=== PATIENT | female | born 1965 | race Caucasian/White ===

== ENCOUNTER 2016-07-05 08:03 | Day surgery (SDC) ==
[2016-04-24 13:53] VITALS: BMI 38.5
[2016-07-05] MEDS ORDERED: ALBUTEROL 0.083% NEB NEB STA (08:35)
[2016-07-05] MEDS ORDERED: LIDOCAINE 1% 20 ML MDV ID ONE (08:48)
[2016-07-05] MEDS ORDERED: VERSED ONE (10:50)
[2016-07-05] MEDS ORDERED: DIPRIVAN 20 ML VIAL IVP ONE (10:50)
[2016-07-05] MEDS ORDERED: SUBLIMAZE ONE (10:50)
[2016-07-05 11:31] VITALS: BP 118/77; TEMP 98.4
--- NOTE | 2016-07-05 14:54 | OP ---
INDICATIONS FOR PROCEDURE: 50-year-old female presents for endoscopy and colonoscopy. She is having breakthrough heartburn. She also has diarrhea. She has always had some diarrhea but it has gotten worse since they have increased her oral diabetic medications. MEDICATIONS: SEE ANESTHESIA NOTES. PROCEDURE: 1. ENDOSCOPY, SMALL BOWEL BIOPSY 2. COLONOSCOPY, RANDOM BIOPSIES, SNARE POLYPECTOMY REPORT: The risks, benefits, alternatives and limitations were discussed in detail with the patient. Informed consent was obtained. After adequate sedation was achieved, the video endoscope was introduced in the posterior pharynx and esophagus under direct vision and easily advanced down to the second portion of the duodenum. I then slowly withdrew. The duodenal mucosa appeared unremarkable as did the duodenal bulb. I obtained random biopsies from the second portion of the duodenum for histological review. The antrum and body were relatively unremarkable. The scope was retroflexed to look at the cardia and fundus which was unremarkable. The scope was anteflexed and withdrawn back through the esophagus which was unremarkable. The patient tolerated this procedure well with stable vital signs and pulse oximetry throughout. The patient's bed was turned. A digital rectal exam revealed good tone, no masses. The colonoscope was introduced into the rectum and advanced under direct visual guidance to the cecum. The cecum was identified by the appendiceal orifice and IC valve. I intubated the terminal ileum and examined distally 8 cm. This appeared normal. I then withdrew the scope back in the cecum. In the cecum there were two polyps about 5 mm and 6 mm in size, both sessile, both removed by snare technique. They were not retrieved. Withdrawing the scope in a circumferential manner and looking at the proximal and distal side of folds and flexures, carefully revealed two polyps in the distal ascending colon. These were about 6 and 7 mm in size and slightly raised. I removed both by snare technique. They were placed in the same pathology jar. In the proximal transverse colon, there was a 5 mm to 6 mm slightly raised polyp that I placed in a separate pathology jar and then in the rectum there was a diminutive polyp in the very distal rectum that I removed by snare technique. No other abnormalities noted on forward and retroflex views. The prep was good. I did obtain some random biopsies throughout the left colon for histological review. The withdrawal time is 17 minutes and 20 seconds. The patient tolerated the procedure well with stable vital signs and pulse oximetry throughout. IMPRESSION: 1. NORMAL UPPER ENDOSCOPY EXAM 2. SIX (6) COLONIC POLYPS REMOVED 3. NOTHING FOUND TO ACCOUNT FOR DIARRHEA 4. SHE MOST LIKELY HAS A HISTORY OF CHRONIC IRRITABLE BOWEL BUT NOW IT HAS GOTTEN WORSE WITH SULFONYLUREA DIABETIC MEDICATION USE RECOMMENDATIONS: 1. I suggest Citrucel supplementation 5 to 10 gm daily. 2. [id number] Imodium AD as directed, as needed for diarrhea. 3. If her diarrhea continues despite this then she will need to followup with her primary care and consider other treatment for diabetes other than the Sulfonylureas, which are a common cause of diarrhea. 4. Will await pathology results. 5. Repeat colonoscopy examination again in 3 years, sooner if signs or symptoms or pathology would suggest otherwise. 6. Office visit with us as needed. CC: MARKELL MOSQUEDA/[facility], [place], [place] KATHERINE
== END 2016-07-05 12:20 | disposition home or self-care (01) ==
LOC: SURG 08:03
PROVIDERS: ATTEND Internal Medicine Gastroenterology
DX: R19.7 Diarrhea, unspecified (principal); K21.9 Gastro-esophageal reflux disease without esophagitis; D12.2 Benign neoplasm of ascending colon; D12.3 Benign neoplasm of transverse colon; D12.7 Benign neoplasm of rectosigmoid junction; D13.2 Benign neoplasm of duodenum; E11.9 Type 2 diabetes mellitus without complications
CPT/HCPCS: 82962; 94640

== ENCOUNTER 2016-08-12 08:21 | Outpatient (CLI) ==
[2016-04-24 13:53] VITALS: BMI 38.5
--- NOTE | 2016-08-12 09:33 | US ---
EXAM: Abdominal ultrasound limited HISTORY: Cirrhosis with abdominal pain and history of cholecystectomy COMPARISON: Abdominal ultrasound 03/05/2016, 12/16/[address] abdomen 11/15/2014 TECHNIQUE: Sonographic and limited Doppler evaluation of the right upper quadrant was performed. FINDINGS: The liver is coarse and mild increased in echogenicity and measures enlarged at 20.1 cm. The portal vein is patent. The gallbladder has been removed. Common bile duct is unremarkable and measures mildly enlarged at 0.7 cm in diameter. No internal debris or stone is identified. The schaefer creas is unremarkable in appearance. The adjacent right kidney measures 13.4 x 5.1 x 5.2 cm with cor tical thickness of 1.3. There is no stone, cyst or hydronephrosis. IMPRESSION: 1. Heterogeneous increased echogenic texture of the liver may represent cirrhosis versus fatty live r. There is no focal hepatic lesion identified. 2. Hepatomegaly is present. 3. Prior cholecystectomy with stable mildly enlarged common duct.
== END 2016-08-12 08:22 | disposition home or self-care (01) ==
LOC: RAD 08:21
PROVIDERS: ATTEND Physician Assistant Medical
DX: K74.60 Unspecified cirrhosis of liver (principal)

== ENCOUNTER 2016-08-30 20:54 | Emergency (ER) ==
[2016-08-30 21:05] VITALS: BP 119/82; TEMP 99.2; BMI 37.5
[2016-08-30] MEDS ORDERED: SODIUM CHLORIDE 1,000 ML IV STA (21:09)
[2016-08-30] MEDS ORDERED: ROCEPHIN 1 GM in SODIUM CHLORIDE 100 ML IV STA (21:10)
[2016-08-30] MEDS ORDERED: DILAUDID 1 MG/ML SYRINGE IVP STA ×2 (21:10→23:19)
[2016-08-30] MEDS ORDERED: ZOFRAN 4 MG/2 ML IVP STA ×2 (21:10→23:23)
[2016-08-30] MEDS ORDERED: DECADRON 4 MG/ML SDV IVP STA (21:10)
--- NOTE | 2016-08-30 21:44 | CT ---
EXAM: CT head without contrast. HISTORY: Headache. PROCEDURE: Contiguous axial CT images of the head without contrast with coronal and sagittal reform ats. FINDINGS: The ventricles and basal cisterns are normal in size and configuration. No evidence of ma ss or midline shift. No intracranial hemorrhage or evidence of large vessel infarct. No extra-axia l fluid collection. The paranasal sinuses and mastoid air cells are well-aerated. Impression: Negative CT of the head.
--- NOTE | 2016-08-30 21:47 | CT ---
EXAM: CT of the chest without contrast. HISTORY: Hemoptysis. Patient had a colonoscopy and endoscopy on 07/05/2016. COMPARISON: 03/31/2016. TECHNIQUE: Contiguous axial images at 5 mm intervals obtained from the lung apices to the upper abd omen. The study was performed without IV contrast. Sagittal and coronal reformats were reviewed. FINDINGS: The lung windows show no lobar consolidation or effusion. There are no suspicious pulmon judith nodules. The airways are widely patent. The pulmonary fissure appears normal. There is no ple ural thickening. The soft tissue windows demonstrate a normal size heart. There is no significant mediastinal or hilar adenopathy identified. There is no axillary adenopathy. Limited views of the upper abdomen are available. The liver appears enlarged. The gallbladder is absent. The pancreas is unremarkable. IMPRESSION: 1. No acute pulmonary disease. 2. Hepatomegaly.
--- NOTE | 2016-08-30 21:49 | CT ---
EXAM: CT of the sinuses without contrast. HISTORY: Coughing up blood. Headache and nausea. PROCEDURE: Contiguous axial CT images of the paranasal sinuses without contrast with coronal and sa gittal reformats. FINDINGS: The frontal sinuses, ethmoid air cells and sphenoid sinus are well-aerated and normal in appearance. There is trace mucosal thickening in the maxillary sinuses. There is a right antrectom y. The left ostiomeatal complex is normal in appearance. The nasal turbinates are normal in appear ance. There is mild bowing of the nasal septum to the left with a left septal spur. Impression: Minimal bilateral maxillary sinusitis. Right antrectomy.
[2016-08-30] MEDS ORDERED: ROCEPHIN ONE (21:52)
[2016-08-30 21:53] LABS: BASOPHILS # (AUTO) 0.1 K/uL (0-0.2); BASOPHILS % (AUTO) 0.4 % (0.0-3.0); EOSINOPHILS # (AUTO) 0.2 K/ul (0.0-0.7); EOSINOPHILS % (AUTO) 1.5 % (0.0-7.0); HEMATOCRIT 39.5 % (37.0-47.0); HEMOGLOBIN 13.9 g/dl (12.0-16.0); IMMATURE GRANULOCYTE % (AUTO) 0.2 % (0.0-5.0); LYMPHOCYTES # (AUTO) 4.8 K/uL (0.60-3.4); LYMPHOCYTES % (AUTO) 42.6 (10.0-50.0); MEAN CORPUSCULAR HEMOGLOBIN 30.5 pg (27.0-31.0); MEAN CORPUSCULAR HGB CONC 35.2 (31.8-35.4); MEAN CORPUSCULAR VOLUME 86.6 fl (81.0-99.0); MONOCYTES # (AUTO) 0.7 K/uL (0.4-2.0); MONOCYTES % (AUTO) 5.9 (0-10); NEUTROPHILS # (AUTO) 5.6 K/ul (2.0-6.9); NEUTROPHILS % (AUTO) 49.4; PLATELET COUNT 202 10^3/uL (140-440); RED BLOOD COUNT 4.56 10^6/ul (4.20-5.40); WHITE BLOOD COUNT 11.27 K/ul (4.6-10.2)
[2016-08-30 22:12] LABS: ALBUMIN 3.3 g/dL (3.4-5.0); ALBUMIN/GLOBULIN RATIO 0.67; ANION GAP 18.3; BILIRUBIN,TOTAL 0.51 mg/dL (0.00-1.20); BUN/CREATININE RATIO 18.94; CALCIUM 9.8 mg/dL (8.2-10.2); CREATININE 0.95 mg/dL (0.60-1.30); POTASSIUM 3.3 mmol/L (3.5-5.10); TOTAL PROTEIN 8.2 g/dL (6.4-8.2)
[2016-08-30 22:16] LABS: FLU INTERNAL QC INTERNAL QC VALID; RAPID FLU A NEGATIVE (NEGATIVE); RAPID FLU B NEGATIVE (NEGATIVE)
[2016-08-30 22:21] LABS: ABG PCO2 34.6 mmHg (35-45); ABG PH 7.503 (7.35-7.45)
[2016-08-30 22:22] LABS: ABG BASE EXCESS 4 (-2.0-2.0); ABG HCO3 27.2 (22.0-26.0); ABG TCO2 28 (22.0-28.0)
--- NOTE | 2016-08-31 01:04 | ED.PDOC ---
General ED Provider: Dr. ROSARIO LOUIS-ER Chief Complaint: Cough Stated Complaint: i have a yeyo Time Seen by Physician: 20:55 Mode of Arrival: Walk-In Information Source: Patient Exam Limitations: No limitations Primary Care Provider: AMAURI MOSQUEDA Nursing and Triage Documentation Reviewed and Agree: Yes Neurological Complaint Exam - Headache Complaint/Exam Onset: Gradual Duration: several hours Symptoms Are: Still present Timing: Intermittent Worst Headache Ever: No Initial Severity: Mild Current Severity: Moderate Location: Diffuse Character: Reports: Dull, Throbbing Aggravating: Reports: Bright lights Alleviating: Reports: None Associated Signs and Symptoms: Reports: Nausea. Denies: Dizziness, Seizure, Vomiting, Sinus pressure, Fever, Neck pain, Neck stiffness, Decreased LOC, Visual changes Related Surgical History: Reports: None SAH Risk Factors: Reports: None Meningitis Risk Factors: Reports: None SDH Risk Factors: Reports: None Temporal Arteritis Risk Factors: Reports: Female, Normal Head CT Within Last 12 Months: No Fundoscopic Exam: Present: Normal Findings Papilledema Present: No Temporal Artery Tenderness: Present: None TMJ Tenderness: Present: None Glascow Coma Scale (see protocol): 15 Meningeal Signs Positive: No Pain on Passive Flexion-Positive Kernig's: No ROM Limited In: No Limitiations Focal Weakness: Present: None Focal Sensory Loss: Present: None Gait: Normal Nystagmus Present: No Gag Reflex Present: Yes [id number]: Normal Findings Romberg Test Positive: No Babinski Sign: Negative Right, Negative Left Heel to Toe Normal: Yes Differential Diagnoses: Migraine Review of Systems - Review Of Systems Constitutional: Reports: No symptoms Eyes: Reports: No symptoms Ears, Nose, Mouth, Throat: Reports: No symptoms Respiratory: Reports: No symptoms Cardiac: Reports: No symptoms GI: Reports: Nausea : Reports: No symptoms Musculoskeletal: Reports: No symptoms Skin: Reports: No symptoms Neurological: Reports: No symptoms Endocrine: Reports: No symptoms Hematologic/Lymphatic: Reports: No symptoms All Other Systems: Reviewed and Negative Past Medical History - Past Medical History Previously Healthy: No Endocrine: Reports: Hypothyroid Cardiovascular: Reports: None Respiratory: Reports: COPD Hematological: Reports: Anemia Gastrointestinal: Reports: GERD Genitourinary: Reports: None Neuro/Psych: Reports: Depression Musculoskeletal: Reports: Back Pain Cancer: Reports: None Last Menstrual Period: 1 year ago - Surgical History General Surgical History: Reports: Tubal ligation, Orthopedic - Family History Family History: Reports: None - Social History Smoking Status: Former smoker Hx Substance Use: No Alcohol Screening: None - Immunizations Tetanus Shot up to Date: Yes Physical Exam - Physical Exam Appearance: Well-appearing, No pain distress, Well-nourished Pain Distress: Moderate Eyes: SCOUT ENT: Ears normal, Nose normal, Oropharynx normal Neck: Supple Respiratory: Airway patent, Breath sounds clear, Breath sounds equal, Respirations nonlabored Cardiovascular: RRR, Pulses normal, No rub, No murmur GI/: Soft, Nontender, No masses, Bowel sounds normal, No Organomegaly Musculoskeletal: Normal strength Skin: Warm, Dry, Normal color Neurological: Sensation intact Psychiatric: Affect appropriate, Mood appropriate Interpretation - Radiology Interpretation Radiology Interpretation By: Radiologist Radiology Results: Negative Exam Interpreted: CT Scan Re-Evaluation - Re-Evaluation Time of Re-Evaluation: 01:04 Status: Improved Vital Signs Stable: Yes Pain Level: 1 Lungs: Clear Skin: Warm and Dry Neuro: Alert and Oriented X3 CV: RRR Critical Care Note - Critical Care Note Total Time (mins): 0 Course - Course Hematology/Chemistry: 08/30/16 21:52 08/30/16 21:52 Orders, Labs, Meds: Lab Review 08/30/16 08/30/16 21:09 21:52 WBC 11.27 H RBC 4.56 Hgb 13.9 Hct 39.5 MCV 86.6 MCH 30.5 MCHC 35.2 RDW Coeff of Juliana 13.2 Plt Count 202 Immature Gran % (Auto) 0.2 Neut % (Auto) 49.4 Lymph % (Auto) 42.6 [place] % (Auto) 5.9 Eos % (Auto) 1.5 Baso % (Auto) 0.4 Immature Gran # (Auto) 0.0 Neut # 5.6 Lymph # 4.8 H [place] # 0.7 Eos # 0.2 Baso # 0.1 D-Dimer 0.32 Puncture Site Lb O2 Saturation 98.0 ABG pH 7.503 H* ABG pCO2 34.6 L ABG pO2 101.0 H ABG HCO3 27.2 H ABG Total CO2 28 ABG Base Excess 4 H Tani Test + FiO2 % 21.0 Sodium 137 Potassium 3.3 L Chloride 98 Carbon Dioxide 24 Anion Gap 18.3 BUN 18 Creatinine 0.95 Estimated GFR (MDRD) 63.00 BUN/Creatinine Ratio 18.94 Glucose 375 H Calcium 9.8 Total Bilirubin 0.51 AST 86 H ALT 43 Alkaline Phosphatase 184 H Total Protein 8.2 Albumin 3.3 L Globulin 4.9 Albumin/Globulin Ratio 0.67 Influenza A (Rapid) Negative Influenza B (Rapid) Negative Orders Category Date Time Status ABG DRAW REQUEST Stat CARDIO 08/30/16 21:09 Completed EKG-(ED ONLY) Stat CARDIO 08/30/16 21:09 Completed IV [ED IV/MEDIPORT/POWERPORT] .ONCE EMERGENCY 08/30/16 21:09 Active Ice Pack [ED APPLY ICE AFFECTED AREA] .ONCE EMERGENCY 08/31/16 00:19 Active OXYGEN [ED APPLY O2] .ONCE EMERGENCY 08/30/16 22:13 Active ABG Stat LAB 08/30/16 21:09 Completed CBC W/ AUTO DIFF Stat LAB 08/30/16 21:52 Completed COMPREHENSIVE METABOLIC PANEL Stat LAB 08/30/16 21:52 Completed D-DIMER Stat LAB 08/30/16 21:52 Completed MOLECULAR GROUP A STREP Stat LAB 08/30/16 21:52 Results RAPID FLU A/B Stat LAB 08/30/16 21:52 Completed STREP SCREEN Stat LAB 08/30/16 21:52 Results 0.9 % Sodium Chloride [Saline Flush] MEDS 08/30/16 21:09 Ordered 1 syr IVF PRN PRN Ceftriaxone Sodium [Rocephin] MEDS 08/30/16 21:52 Discontinued 1 gm .ROUTE .STK-MED ONE Ceftriaxone Sodium [Rocephin] 1 gm MEDS 08/30/16 21:10 Discontinued 0.9 % Sodium Chloride [Sodium Chloride] 100 ml IV ONCE Dexamethasone 4 mg/ml Inj [Decadron 4 mg/ml Sdv] MEDS 08/30/16 21:10 Discontinued 4 mg IVP ONCE STA Hydromorphone HCl [Dilaudid 1 mg/ml Syringe] MEDS 08/30/16 21:10 Discontinued 1 mg IVP ONCE STA Hydromorphone HCl [Dilaudid 1 mg/ml Syringe] MEDS 08/30/16 23:19 Discontinued 1 mg IVP ONCE STA Ondansetron HCl/Pf [Zofran 4 mg/2 ml] MEDS 08/30/16 21:10 Discontinued 4 mg IVP ONCE STA Ondansetron HCl/Pf [Zofran 4 mg/2 ml] MEDS 08/30/16 23:23 Discontinued 4 mg IVP ONCE STA Sodium Chloride 0.9% [Sodium Chloride] 1,000 ml MEDS 08/30/16 21:09 Active IV 100 mls/hr CT CHEST W/O CONTRAST Stat RADS 08/30/16 21:[address] HEAD W/O CONTRAST Stat RADS 08/30/16 21:[address] SINUSES W/O CONTRAST Stat RADS 08/30/16 21:10 Completed Medications Generic Name Dose Route Start Last Admin Trade Name Freq PRN Reason Stop Dose Admin Sodium Chloride 1,000 mls @ 100 mls/hr 08/30/16 21:09 08/30/16 22:07 Sodium Chloride IV 08/31/16 07:08 100 mls/hr .Q10H STA Administration Sodium Chloride 1 syr 08/30/16 21:09 08/30/16 22:08 Saline Flush IVF 1 syr PRN PRN Administration To flush IV Discontinued Medications Generic Name Dose Route Start Last Admin Trade Name Freq PRN Reason Stop Dose Admin Dexamethasone Sodium Phosphate 4 mg 08/30/16 21:10 08/30/16 22:08 Decadron 4 Mg/Ml Sdv IVP 08/30/16 21:11 4 mg ONCE STA Administration Hydromorphone HCl 1 mg 08/30/16 21:10 08/30/16 22:09 Dilaudid 1 Mg/Ml Syringe IVP 08/30/16 21:11 1 mg ONCE STA Administration Hydromorphone HCl 1 mg 08/30/16 23:19 08/30/16 23:49 Dilaudid 1 Mg/Ml Syringe IVP 08/30/16 23:20 1 mg ONCE STA Administration Ceftriaxone Sodium 1 gm/ 100 mls @ 100 mls/hr 08/30/16 21:10 08/30/16 22:07 Sodium Chloride IV 08/30/16 22:09 100 mls/hr ONCE STA Administration Ondansetron HCl 4 mg 08/30/16 21:10 08/30/16 22:11 Zofran 4 Mg/2 Ml IVP 08/30/16 21:11 4 mg ONCE STA Administration Ondansetron HCl 4 mg 08/30/16 23:23 08/30/16 23:49 Zofran 4 Mg/2 Ml IVP 08/30/16 23:24 4 mg ONCE STA Administration Vital Signs: Temp Pulse Resp BP Pulse Ox 08/30/16 20:56 99.2 F 138 H 20 119/82 96 Departure - Departure Time of Disposition: 01:04 Disposition: HOME SELF-CARE Discharge Problem: Migraine headache Qualifiers: Migraine type: unspecified Status migrainosus presence: without status migrainosus Intractability: not intractable Qualifier Code: (G43.909) Migraine, unspecified, not intractable, without status migrainosus Instructions: Migraine Headache (ED) Condition: Good Pt referred to PMD for follow-up: Yes Additional Instructions: f/u with pcp Allergies/Adverse Reactions: Allergies hydrocodone bitartrate [From Lortab] Adverse Reaction (Verified 08/30/16 21:04) sumatriptan [From Imitrex] Adverse Reaction (Verified 08/30/16 21:04) sumatriptan succinate [From Imitrex] Adverse Reaction (Verified 08/30/16 21:04) CANT BREATHE, CHILLS nylon Adverse Reaction (Uncoded 08/30/16 21:04) Home Medications: Ambulatory Orders Oxycodone-Acetaminophen 10-325 [Percocet 10-325] 1 tab PO Q8H PRN 05/27/13 Ferrous Sulfate, Dried [Iron] 65 mg PO BID 11/12/14 Albuterol Sulfate [Ventolin Hfa] 2 puff IH BID PRN 08/04/15 Budesonide/Formoterol Fumarate [Symbicort 80-4.5 Mcg Inhaler] 2 puff IH BID 08/18 Tizanidine HCl [Zanaflex] 4 mg PO TID PRN 09/21/15 Atorvastatin Calcium 20 mg PO DAILY 07/05/16 Glipizide [Glipizide ER] 10 mg PO DAILY 07/05/16 Disposition Discussed With: Patient, Family
== END 2016-08-31 00:15 | disposition home or self-care (01) ==
LOC: ED 20:54
DX: G43.909 Migraine, unspecified, not intractable, without status migrainosus (principal); Z79.899 Other long term (current) drug therapy
CPT/HCPCS: 36415; 80053; 82803; 85025; 85379; 87651; 87804; 87880; 93005; 93010; 96361; 96365; 96375; 96376; 99283

== ENCOUNTER 2017-02-10 19:49 | Emergency (ER) ==
[2017-02-10] MEDS ORDERED: DILAUDID 1 MG/ML SYRINGE IVP STA ×2 (19:51→21:07)
[2017-02-10] MEDS ORDERED: ZOFRAN 4 MG/2 ML IVP STA (19:51)
[2017-02-10] MEDS ORDERED: SODIUM CHLORIDE 1,000 ML IV STA (19:51)
[2017-02-10 19:54] VITALS: BP 153/102; TEMP 98; BMI 36.0
[2017-02-10 20:04] LABS: BASOPHILS # (AUTO) 0.1 K/uL (0-0.2); BASOPHILS % (AUTO) 0.4 % (0.0-3.0); EOSINOPHILS # (AUTO) 0.2 K/ul (0.0-0.7); EOSINOPHILS % (AUTO) 1.2 % (0.0-7.0); HEMATOCRIT 39.6 % (37.0-47.0); HEMOGLOBIN 13.7 g/dl (12.0-16.0); IMMATURE GRANULOCYTE % (AUTO) 0.3 % (0.0-5.0); LYMPHOCYTES # (AUTO) 5.2 K/uL (0.60-3.4); LYMPHOCYTES % (AUTO) 35.6 (10.0-50.0); MEAN CORPUSCULAR HEMOGLOBIN 31.1 pg (27.0-31.0); MEAN CORPUSCULAR HGB CONC 34.6 (31.8-35.4); MONOCYTES # (AUTO) 0.8 K/uL (0.4-2.0); MONOCYTES % (AUTO) 5.2 (0-10); NEUTROPHILS # (AUTO) 8.3 K/ul (2.0-6.9); NEUTROPHILS % (AUTO) 57.3; PLATELET COUNT 301 10^3/uL (140-440); WHITE BLOOD COUNT 14.52 K/ul (4.6-10.2)
[2017-02-10 20:30] LABS: ALBUMIN 3.7 g/dL (3.4-5.0); ALBUMIN/GLOBULIN RATIO 0.77; ANION GAP 14.9; BILIRUBIN,TOTAL 0.33 mg/dL (0.00-1.20); BUN/CREATININE RATIO 11.53; CALCIUM 9.7 mg/dL (8.2-10.2); CREATININE 0.78 mg/dL (0.60-1.30); POTASSIUM 3.9 mmol/L (3.5-5.10); TOTAL PROTEIN 8.5 g/dL (6.4-8.2); TROPONIN I 0.011 ng/ml (0.0000-0.4000)
[2017-02-10 20:38] LABS: ERYTHROCYTE SEDIMENTATION RATE 87 mm/hr (0-20); ESR INTERNAL QC INTERNAL QC VALID
[2017-02-10 21:13] LABS: ADD URINE MICROSCOPIC YES; BILIRUBIN,URINE Negative (NEGATIVE); KETONES,URINE Negative (NEGATIVE); LEUKOCYTE ESTERASE ,URINE 2+ (NEGATIVE); NITRITE,URINE Negative (NEGATIVE); PH,URINE 5.5 (5-9); PROTEIN,URINE Negative (NEGATIVE); URINE, BLOOD 2+ (NEGATIVE)
[2017-02-10 21:33] LABS: BACTERIA,URINE 1+ (NOT PRESENT)
--- NOTE | 2017-02-10 21:43 | CT ---
Exam: CT of the abdomen pelvis with intravenous contrast. Comparison: 11/15/2014. Ultrasound right upper quadrant performed 08/12/2016. Reason for exam: Abdominal pain status post hysterectomy. FINDINGS: No pleural effusion, or focal consolidation is seen in the partially imaged lung bases. The liver, spleen, pancreas, and adrenal glands appear grossly unremarkable. The gallbladder is bee n removed. No hydronephrosis, after ureter, or nephrolithiasis is seen in either kidney. No intra-abdominal free air or pelvic free fluid. The uterus is been removed. The appendix is unremarkable. No focal small bowel dilatation or transition point. No suspicious appearing osteoblastic or osteoly tic lesions. Degenerative disease is seen in the lumbosacral spine with intervertebral body disc space height los s at L5-S1. There is a tiny only fat containing periumbilical hernia. The bladder appears grossly unremarkable. Operative changes are seen after partial hysterectomy with a small amount of air seen in residual ut erus. There are inflammatory changes seen adjacent to the operative site. Impression: 1. Inflammatory changes are seen in the region of the partial hysterectomy with air seen within the residual uterus. 2. No other acute inflammatory findings are seen within the abdomen or pelvis. Imaging findings were discussed directly with the emergency room physician at 2138 hours on 02/11/20 17. The report was faxed at the same time.
--- NOTE | 2017-02-10 23:00 | ED.PDOC ---
General ED Provider: Dr. ROSARIO LOUIS-ER Chief Complaint: Nausea/Vomiting Stated Complaint: s/p partial hyst 2 weeks ago--now with fever, chills vomiting 7-8 times today--wtih abd pain Time Seen by Physician: 19:50 Mode of Arrival: Walk-In Information Source: Patient Exam Limitations: No limitations Primary Care Provider: AMAURI MOSQUEDA Nursing and Triage Documentation Reviewed and Agree: Yes GI Complaint Exam - Abdominal Pain Complaint/Exam Onset: Gradual Duration: 24 hrs Symptoms Are: Still present Initial Severity: Mild Current Severity: Moderate Location of Pain: Diffuse Character: Reports: Dull, Aching Aggravating: Reports: None Alleviating: Reports: None Associated Signs and Symptoms: Reports: Fever, Decreased appetite, Nausea, Vomiting. Denies: Diaphoresis, Cough, Chest pain, Dizziness, Back pain, Constipation, Blood in stool, Dysuria, Urinary frequency, Decreased urine output , Vaginal bleeding, Vaginal discharge, Diarrhea, Sore throat, Decreased activity Ovarian Torsion Risk Factors: Reports: Reproductive age Surgical Obstruction Risk Factors: Reports: Colicky abdominal pain, Prior abdominal surgery Patient Rh Status: Unknown Abdominal Findings: Present: None Differential Diagnoses: Bowel Obstruction, Constipation, Pancreatitis Quality Indicator For Non-Traumatic Chest Pain/Syncope: EKG Performed Review of Systems - Review Of Systems Constitutional: Reports: Chills, Fever, Weakness, Loss of appetite Eyes: Reports: No symptoms Ears, Nose, Mouth, Throat: Reports: No symptoms Respiratory: Reports: No symptoms Cardiac: Reports: No symptoms GI: Reports: Abdominal pain, Nausea, Vomiting : Reports: No symptoms Musculoskeletal: Reports: No symptoms Skin: Reports: No symptoms Neurological: Reports: No symptoms Endocrine: Reports: No symptoms Hematologic/Lymphatic: Reports: No symptoms All Other Systems: Reviewed and Negative Past Medical History - Past Medical History Previously Healthy: No Endocrine: Reports: Hypothyroid Cardiovascular: Reports: None Respiratory: Reports: COPD Hematological: Reports: Anemia Gastrointestinal: Reports: GERD Genitourinary: Reports: None Neuro/Psych: Reports: Depression Musculoskeletal: Reports: Back Pain Cancer: Reports: None Last Menstrual Period: 2 YEARS AGO - Surgical History General Surgical History: Reports: Tubal ligation, Orthopedic - Family History Family History: Reports: None - Social History Smoking Status: Former smoker Hx Substance Use: No Alcohol Screening: None Lives: With family - Immunizations Tetanus Shot up to Date: Yes Physical Exam - Physical Exam Appearance: Well-appearing, No pain distress, Well-nourished Pain Distress: Mild Eyes: SCOUT, EOMI, Conjunctiva clear ENT: Ears normal Neck: Supple Respiratory: Airway patent, Breath sounds clear, Breath sounds equal, Respirations nonlabored Cardiovascular: RRR, Pulses normal, No rub, No murmur GI/: No masses, Bowel sounds normal, Tender Musculoskeletal: Normal strength Skin: Warm Neurological: Sensation intact, Motor intact, Reflexes intact, Cranial nerves intact, Alert, Oriented Psychiatric: Affect appropriate, Mood appropriate Interpretation - Radiology Interpretation Radiology Interpretation By: Radiologist Radiology Results: Positive Exam Interpreted: CT Scan - EKG Interpretation Time of EKG #1: 23:00 Rate: Normal Rhythm: Sinus Ectopy: None [place]: [place] ST Segment: Normal Re-Evaluation - Re-Evaluation Time of Re-Evaluation: 23:00 Status: Unchanged Vital Signs Stable: Yes Pain Level: 3 Appearance: NAD Lungs: Clear Skin: Warm and Dry Neuro: Alert and Oriented X3 CV: RRR Physician Notification - Case Discussed Physician Notified: dr [email or web address] Time of Notification: 23:01 Critical Care Note - Critical Care Note Total Time (mins): 0 Course - Course Hematology/Chemistry: 02/10/17 20:00 02/10/17 20:00 Orders, Labs, Meds: Lab Review 02/10/17 02/10/17 20:00 21:00 WBC 14.52 H RBC 4.40 Hgb 13.7 Hct 39.6 MCV 90.0 MCH 31.1 H MCHC 34.6 RDW Coeff of Juliana 13.2 Plt Count 301 Immature Gran % (Auto) 0.3 Neut % (Auto) 57.3 Lymph % (Auto) 35.6 [place] % (Auto) 5.2 Eos % (Auto) 1.2 Baso % (Auto) 0.4 Immature Gran # (Auto) 0.0 Neut # 8.3 H Lymph # 5.2 H [place] # 0.8 Eos # 0.2 Baso # 0.1 ESR 87 H Sodium 140 Potassium 3.9 Chloride 104 Carbon Dioxide 25 Anion Gap 14.9 BUN 9 Creatinine 0.78 Estimated GFR (MDRD) 78.00 BUN/Creatinine Ratio 11.53 Glucose 121 H Calcium 9.7 Total Bilirubin 0.33 AST 72 H ALT 41 Alkaline Phosphatase 163 H Total Creatine Kinase 34 Troponin I 0.0110 Total Protein 8.5 H Albumin 3.7 Globulin 4.8 Albumin/Globulin Ratio 0.77 Amylase 48 Lipase 28 Urine Color Yellow Urine Clarity Slightly Urine pH 5.5 Ur Specific [place] 1.010 Urine Protein Negative Urine Glucose (UA) Negative Urine Ketones Negative Urine Blood 2+ Urine Nitrite Negative Urine Bilirubin Negative Urine Urobilinogen 0.2 Ur Leukocyte Esterase 2+ Urine Microscopic RBC 10-20 Urine Microscopic WBC 10-20 Ur Squamous Epith Cells 5-10 Urine Bacteria 1+ Orders Category Date Time Status EKG-(ED ONLY) Stat CARDIO 02/10/17 19:51 Completed NPO REMINDER: IMAGING ONCE CARE 02/10/17 19:52 Completed IV [ED IV/MEDIPORT/POWERPORT] .ONCE EMERGENCY 02/10/17 19:51 Active AMYLASE Stat LAB 02/10/17 20:00 Completed CBC W/ AUTO DIFF Stat LAB 02/10/17 20:00 Completed COMPREHENSIVE METABOLIC PANEL Stat LAB 02/10/17 20:00 Completed CREATINE KINASE Stat LAB 02/10/17 20:00 Completed ESR Stat LAB 02/10/17 20:00 Completed LIPASE Stat LAB 02/10/17 20:00 Completed TROPONIN I Stat LAB 02/10/17 20:00 Completed URINALYSIS C & S IF INDICATED Stat LAB 02/10/17 21:00 Completed URINE CULTURE Routine LAB 02/10/17 21:13 Received 0.9 % Sodium Chloride [Saline Flush] MEDS 02/10/17 19:51 Ordered 1 syr IVF PRN PRN Hydromorphone HCl [Dilaudid 1 mg/ml Syringe] MEDS 02/10/17 19:51 Discontinued 1 mg IVP ONCE STA Hydromorphone HCl [Dilaudid 1 mg/ml Syringe] MEDS 02/10/17 21:07 Discontinued 1 mg IVP ONCE STA Ondansetron HCl/Pf [Zofran 4 mg/2 ml] MEDS 02/10/17 19:51 Discontinued 4 mg IVP ONCE STA Sodium Chloride 0.9% [Sodium Chloride] 1,000 ml MEDS 02/10/17 19:51 Active IV 100 mls/hr CT ABDOMEN/PELVIS W CONTRAST Stat RADS 02/10/17 19:52 Completed Medications Generic Name Dose Route Start Last Admin Trade Name Freq PRN Reason Stop Dose Admin Sodium Chloride 1,000 mls @ 100 mls/hr 02/10/17 19:51 02/10/17 20:05 Sodium Chloride IV 02/11/17 05:50 100 mls/hr .Q10H STA Administration Sodium Chloride 1 syr 02/10/17 19:51 Saline Flush IVF PRN PRN To flush IV Discontinued Medications Generic Name Dose Route Start Last Admin Trade Name Laurentq PRN Reason Stop Dose Admin Hydromorphone HCl 1 mg 02/10/17 19:51 02/10/17 20:04 Dilaudid 1 Mg/Ml Syringe IVP 02/10/17 19:52 1 mg ONCE STA Administration Hydromorphone HCl 1 mg 02/10/17 21:07 02/10/17 21:20 Dilaudid 1 Mg/Ml Syringe IVP 02/10/17 21:08 1 mg ONCE STA Administration Ondansetron HCl 4 mg 02/10/17 19:51 02/10/17 20:05 Zofran 4 Mg/2 Ml IVP 02/10/17 19:52 4 mg ONCE STA Administration Vital Signs: Temp Pulse Resp BP Pulse Ox 02/10/17 19:49 98.0 F 100 H 20 153/102 H 97 Departure - Departure Time of Disposition: 23:01 Disposition: TSF SHORT-TRM HOSP Discharge Problem: Abdominal pain Qualifiers: Abdominal location: generalized Qualifier Code: (R10.84) Generalized abdominal pain Instructions: Abdominal Pain (ED) Condition: Good Pt referred to PMD for follow-up: No Allergies/Adverse Reactions: Allergies hydrocodone bitartrate [From Lortab] Adverse Reaction (Verified 02/10/17 19:54) sumatriptan [From Imitrex] Adverse Reaction (Verified 02/10/17 19:54) sumatriptan succinate [From Imitrex] Adverse Reaction (Verified 02/10/17 19:54) CANT BREATHE, CHILLS nylon Adverse Reaction (Uncoded 02/10/17 19:54) Home Medications: Ambulatory Orders Oxycodone-Acetaminophen 10-325 [Percocet 10-325] 1 tab PO Q8H PRN 05/27/13 Ferrous Sulfate, Dried [Iron] 65 mg PO BID 11/12/14 Albuterol Sulfate [Ventolin Hfa] 2 puff IH BID PRN 08/04/15 Budesonide/Formoterol Fumarate [Symbicort 80-4.5 Mcg Inhaler] 2 puff IH BID 08/18 Tizanidine HCl [Zanaflex] 4 mg PO TID PRN 09/21/15 Atorvastatin Calcium 20 mg PO DAILY 07/05/16 Glipizide [Glipizide ER] 10 mg PO DAILY 07/05/16 Transfer Form Completed: Yes Disposition Discussed With: Patient, Family
[2017-02-11] MEDS ORDERED: MORPHINE 2 MG/ML SYRINGE IVP STA (00:20)
== END 2017-02-11 02:10 | disposition short-term general hospital (02) ==
LOC: ED 19:49
DX: R10.84 Generalized abdominal pain (principal); G89.18 Other acute postprocedural pain; R53.1 Weakness; R11.2 Nausea with vomiting, unspecified; R50.9 Fever, unspecified; Z90.711 Acquired absence of uterus with remaining cervical stump; Z79.899 Other long term (current) drug therapy
CPT/HCPCS: 36415; 80053; 81001; 82150; 82550; 83690; 84484; 85025; 85651; 87086; 93005; 93010; 96361; 96374; 96375; 96376; 99284

== ENCOUNTER 2017-02-11 02:10 | Outpatient (CLI) ==
[2017-02-10 19:54] VITALS: BMI 36.0
== END 2017-02-11 02:11 ==
LOC: AMBL 02:10
PROVIDERS: ATTEND Family Medicine
DX: R10.9 Unspecified abdominal pain (principal); R11.2 Nausea with vomiting, unspecified; Z98.890 Other specified postprocedural states; Z90.711 Acquired absence of uterus with remaining cervical stump

== ENCOUNTER 2017-03-16 17:12 | Emergency (ER) ==
[2017-03-16 17:17] VITALS: BP 156/102; TEMP 98.8; BMI 34.4
[2017-03-16] MEDS ORDERED: ZOFRAN 4 MG/2 ML IM STA (17:57)
[2017-03-16 18:10] LABS: BASOPHILS # (AUTO) 0.1 K/uL (0-0.2); BASOPHILS % (AUTO) 0.5 % (0.0-3.0); EOSINOPHILS # (AUTO) 0.2 K/ul (0.0-0.7); EOSINOPHILS % (AUTO) 1.6 % (0.0-7.0); HEMATOCRIT 38.9 % (37.0-47.0); HEMOGLOBIN 13.7 g/dl (12.0-16.0); IMMATURE GRANULOCYTE % (AUTO) 0.3 % (0.0-5.0); LYMPHOCYTES # (AUTO) 4.5 K/uL (0.60-3.4); LYMPHOCYTES % (AUTO) 40.8 (10.0-50.0); MEAN CORPUSCULAR HEMOGLOBIN 31.9 pg (27.0-31.0); MEAN CORPUSCULAR HGB CONC 35.2 (31.8-35.4); MEAN CORPUSCULAR VOLUME 90.7 fl (81.0-99.0); MONOCYTES # (AUTO) 0.6 K/uL (0.4-2.0); MONOCYTES % (AUTO) 5.7 (0-10); NEUTROPHILS # (AUTO) 5.6 K/ul (2.0-6.9); NEUTROPHILS % (AUTO) 51.1; PLATELET COUNT 254 10^3/uL (140-440); RED BLOOD COUNT 4.29 10^6/ul (4.20-5.40); WHITE BLOOD COUNT 10.97 K/ul (4.6-10.2)
--- NOTE | 2017-03-16 18:20 | ED.PDOC ---
General ED Provider: Dr. PINO VALLES Chief Complaint: Nausea/Vomiting Stated Complaint: ABDOMINAL PAIN Time Seen by Physician: 17:30 Mode of Arrival: Walk-In Information Source: Patient Exam Limitations: No limitations Primary Care Provider: AMAURI MOSQUEDA Nursing and Triage Documentation Reviewed and Agree: Yes GI Complaint Exam - Abdominal Pain Complaint/Exam Onset: Gradual Duration: 1 WEEK WITH NAUSEA NO VOMITING Symptoms Are: Still present Timing: Constant Initial Severity: Mild Current Severity: Mild Location of Pain: Diffuse Character: Reports: Dull Aggravating: Reports: None Alleviating: Reports: None Associated Signs and Symptoms: Reports: Nausea. Denies: Diaphoresis, Fever, Cough, Chest pain, Dizziness, Back pain, Constipation, Blood in stool, Dysuria, Urinary frequency, Decreased urine output, Decreased appetite, Vaginal bleeding , Vaginal discharge, Vomiting, Diarrhea, Sore throat, Decreased activity Related History: Reports: Similar episode AAA Risk Factors: Reports: Atherosclerosis Cardiac Risk Factors: Reports: DM Ovarian Torsion Risk Factors: Reports: None Surgical Obstruction Risk Factors: Reports: None Related Surgical History: Reports: None Patient Rh Status: Unknown Abdominal Findings: Present: None. Absent: Pulsatile mass, Abdominal distention , Unequal femoral pulses, Rebound tenderness, Peritoneal signs, [place]'s [place] tender, CVA Tenderness, Hernia, Inguinal swelling Differential Diagnoses: Appendicitis, Bowel Obstruction, Constipation, Gastroenteritis, Pancreatitis, Irritable Bowel Syndrome, Pneumonia, Renal Colic , Ureteral Stone, Ectopic Quality Indicators for AMI: EKG in 10min. Quality Indicators for Cardiac Chest Pain: EKG in 10min. Review of Systems - Review Of Systems Constitutional: Reports: No symptoms Eyes: Reports: No symptoms Ears, Nose, Mouth, Throat: Reports: No symptoms Respiratory: Reports: No symptoms Cardiac: Reports: No symptoms GI: Reports: Abdominal pain, Nausea : Reports: No symptoms Musculoskeletal: Reports: No symptoms Skin: Reports: No symptoms Neurological: Reports: No symptoms Endocrine: Reports: No symptoms Hematologic/Lymphatic: Reports: No symptoms All Other Systems: Reviewed and Negative Past Medical History - Past Medical History Previously Healthy: No Endocrine: Reports: Hypothyroid Cardiovascular: Reports: None Respiratory: Reports: COPD Hematological: Reports: Anemia Gastrointestinal: Reports: GERD Genitourinary: Reports: None Neuro/Psych: Reports: Depression Musculoskeletal: Reports: Back Pain Cancer: Reports: None Last Menstrual Period: HYSTERECTOMY - Surgical History General Surgical History: Reports: Tubal ligation, Orthopedic - Family History Family History: Reports: None - Social History Smoking Status: Former smoker Hx Substance Use: No Alcohol Screening: None - Immunizations Tetanus Shot up to Date: Yes Physical Exam - Physical Exam Appearance: Well-appearing Eyes: SCOUT, EOMI, Conjunctiva clear ENT: Ears normal, Nose normal, Oropharynx normal Respiratory: Airway patent, Breath sounds clear, Breath sounds equal, Respirations nonlabored Cardiovascular: RRR, Pulses normal, No rub, No murmur GI/: Tender Musculoskeletal: Normal strength, ROM intact, No edema, No calf tenderness Skin: Warm, Dry, Normal color Neurological: Sensation intact, Motor intact, Reflexes intact, Cranial nerves intact, Alert, Oriented Psychiatric: Affect appropriate, Mood appropriate Interpretation - Radiology Interpretation Radiology Interpretation By: Radiologist Critical Care Note - Critical Care Note Total Time (mins): 0 Course - Course Hematology/Chemistry: 03/16/17 18:06 03/16/17 18:06 Orders, Labs, Meds: Lab Review 03/16/17 03/16/17 03/16/17 18:06 18:06 18:21 WBC 10.97 H RBC 4.29 Hgb 13.7 Hct 38.9 MCV 90.7 MCH 31.9 H MCHC 35.2 RDW Coeff of [place] 13.1 Plt Count 254 Immature Gran % (Auto) 0.3 Neut % (Auto) 51.1 Lymph % (Auto) 40.8 [place] % (Auto) 5.7 Eos % (Auto) 1.6 Baso % (Auto) 0.5 Immature Gran # (Auto) 0.0 Neut # 5.6 Lymph # 4.5 H [place] # 0.6 Eos # 0.2 Baso # 0.1 Sodium 141 Potassium 3.7 Chloride 104 Carbon Dioxide 26 Anion Gap 14.7 BUN 12 Creatinine 0.77 Estimated GFR (MDRD) 80.00 BUN/Creatinine Ratio 15.58 Glucose 135 H Calcium 9.9 Total Bilirubin 0.42 AST 46 H ALT 30 Alkaline Phosphatase 145 H Total Protein 8.1 Albumin 3.6 Globulin 4.5 Albumin/Globulin Ratio 0.80 Amylase 83 Lipase 95 H Urine Color Urine Clarity Urine pH Ur Specific [place] Urine Protein Urine Glucose (UA) Urine Ketones Urine Blood Urine Nitrite Urine Bilirubin Urine Urobilinogen Ur Leukocyte Esterase Urine Microscopic RBC Urine Microscopic WBC Ur Squamous Epith Cells Urine Test Negative 03/16/17 18:21 WBC RBC Hgb Hct MCV MCH MCHC RDW Coeff of Juliana Plt Count Immature Gran % (Auto) Neut % (Auto) Lymph % (Auto) [place] % (Auto) Eos % (Auto) Baso % (Auto) Immature Gran # (Auto) Neut # Lymph # [place] # Eos # Baso # Sodium Potassium Chloride Carbon Dioxide Anion Gap BUN Creatinine Estimated GFR (MDRD) BUN/Creatinine Ratio Glucose Calcium Total Bilirubin AST ALT Alkaline Phosphatase Total Protein Albumin Globulin Albumin/Globulin Ratio Amylase Lipase Urine Color Yellow Urine Clarity Clear Urine pH 6.5 Ur Specific [place] 1.010 Urine Protein Negative Urine Glucose (UA) Negative Urine Ketones Negative Urine Blood Trace-lysed Urine Nitrite Negative Urine Bilirubin Negative Urine Urobilinogen 0.2 Ur Leukocyte Esterase Negative Urine Microscopic RBC 0-2 Urine Microscopic WBC 0-2 Ur Squamous Epith Cells Not present Urine Test Orders Category Date Time Status AMYLASE Stat LAB 03/16/17 18:06 Completed CBC W/ AUTO DIFF Stat LAB 03/16/17 18:06 Completed COMPREHENSIVE METABOLIC PANEL Stat LAB 03/16/17 18:06 Completed LIPASE Stat LAB 03/16/17 18:06 Completed URINALYSIS C & S IF INDICATED Stat LAB 03/16/17 18:21 Completed URINE Stat LAB 03/16/17 18:21 Completed Ondansetron HCl/Pf [Zofran 4 mg/2 ml] MEDS 03/16/17 17:57 Discontinued 8 mg IM ONCE STA CT ABDOMEN/PELVIS WO CONTRAST Stat RADS 03/16/17 17:55 Completed Medications Discontinued Medications Generic Name Dose Route Start Last Admin Trade Name Freq PRN Reason Stop Dose Admin Ondansetron HCl 8 mg 03/16/17 17:57 03/16/17 18:10 Zofran 4 Mg/2 Ml IM 03/16/17 17:58 8 mg ONCE STA Administration Vital Signs: Temp Pulse Resp BP Pulse Ox 03/16/17 17:13 98.8 F 99 H 20 156/102 H 96 Departure - Departure Time of Disposition: 19:00 Disposition: HOME SELF-CARE Discharge Problem: Nausea, Abdominal pain Instructions: Abdominal Pain (ED) Condition: Good Pt referred to PMD for follow-up: Yes Additional Instructions: Please call your Family Physician as soon as possible to schedule a follow-up appointment. ZOFRAN 4MG BID NEEDED FOR NAUSEA #6 Allergies/Adverse Reactions: Allergies hydrocodone bitartrate [From Lortab] Adverse Reaction (Verified 03/16/17 17:17) sumatriptan [From Imitrex] Adverse Reaction (Verified 03/16/17 17:17) sumatriptan succinate [From Imitrex] Adverse Reaction (Verified 03/16/17 17:17) CANT BREATHE, CHILLS nylon Adverse Reaction (Uncoded 03/16/17 17:17) Home Medications: Ambulatory Orders Oxycodone-Acetaminophen 10-325 [Percocet 10-325] 1 tab PO Q8H PRN 05/27/13 Ferrous Sulfate, Dried [Iron] 65 mg PO BID 11/12/14 Albuterol Sulfate [Ventolin Hfa] 2 puff IH BID PRN 08/04/15 Budesonide/Formoterol Fumarate [Symbicort 80-4.5 Mcg Inhaler] 2 puff IH BID 08/18 Tizanidine HCl [Zanaflex] 4 mg PO TID PRN 16 Atorvastatin Calcium 20 mg PO DAILY 07/05/16 Glipizide [Glipizide ER] 10 mg PO DAILY 07/05/16 Disposition Discussed With: Patient
[2017-03-16 18:29] LABS: BILIRUBIN,URINE Negative (NEGATIVE); KETONES,URINE Negative (NEGATIVE); LEUKOCYTE ESTERASE ,URINE Negative (NEGATIVE); NITRITE,URINE Negative (NEGATIVE); PH,URINE 6.5 (5-9); PROTEIN,URINE Negative (NEGATIVE); URINE, BLOOD Trace-lysed (NEGATIVE)
[2017-03-16 18:29] LABS: ALBUMIN 3.6 g/dL (3.4-5.0); ALBUMIN/GLOBULIN RATIO 0.8; ANION GAP 14.7; BILIRUBIN,TOTAL 0.42 mg/dL (0.00-1.20); BUN/CREATININE RATIO 15.58; CALCIUM 9.9 mg/dL (8.2-10.2); CREATININE 0.77 mg/dL (0.60-1.30); POTASSIUM 3.7 mmol/L (3.5-5.10); TOTAL PROTEIN 8.1 g/dL (6.4-8.2)
[2017-03-16 18:31] LABS: ADD URINE MICROSCOPIC YES; URINE PREGNANCY INTERNAL QC INTERNAL QC VALID
--- NOTE | 2017-03-16 18:47 | CT ---
EXAM: CT abdomen pelvis without contra HISTORY: Pain, diffuse COMPARISON: None TECHNIQUE: CT abdomen pelvis performed without intravenous contrast. Coronal and sagittal reformatt ed images obtained. FINDINGS: Lung bases clear. No free air. No acute abnormalities of the bones. Degenerative change in the spine. Heart is top normal in size. Evaluation organ parenchyma limited without contrast. Liver enlarged and nodular in contour, consistent with cirrhotic configuration. Patient status post cholecystectomy. Pancreas unremarkable. Spleen mildly enlarged. Adrenals unremarkable. No hydron ephrosis or nephrolithiasis. No calculi visualized in normal course of the ureters. Bladder only mi ldly distended and poorly evaluated, grossly unremarkable. Patient status post hysterectomy. Small fat-containing ventral hernias near midline. Aorta normal in caliber. Several stable mildly promine nt bairon hepatic and portacaval lymph nodes. No ascites. Stomach appears normal. No dilated loops small bowel. Appendix appears normal. Colonic diverticulosis. No inflammatory stranding identified in the abdomen pelvis. IMPRESSION: 1. No acute inflammatory process identified in the abdomen or pelvis. 2. Cirrhotic configuration of the liver. 3. Mild splenomegaly. 4. Several stable mildly prominent bairon hepatic/portacaval lymph nodes, nonspecific and may relate to underlying liver disease. 5. Colonic diverticulosis.
== END 2017-03-16 18:58 | disposition home or self-care (01) ==
LOC: ED 17:12
DX: R11.0 Nausea (principal); R10.9 Unspecified abdominal pain; E11.9 Type 2 diabetes mellitus without complications; I70.90 Unspecified atherosclerosis; Z79.899 Other long term (current) drug therapy
CPT/HCPCS: 36415; 80053; 81001; 81025; 82150; 83690; 85025; 96372; 99283

== ENCOUNTER 2017-11-13 08:42 | Outpatient (CLI) ==
--- NOTE | 2017-11-13 10:06 | CT ---
EXAM: CT abdomen pelvis with without contrast HISTORY: Abnormal findings on CT 09/27, three-phase liver COMPARISON: 03/16/2017 TECHNIQUE: CT abdomen pelvis performed with and without intravenous contrast. Coronal and sagittal reformatted images obtained. Post contrast images obtained in the arterial, venous, and delayed phas es. FINDINGS: Lung bases clear. No free air. No acute abnormalities of the bones. Degenerate change i n the spine. Heart normal in size. Liver is enlarged with nodular contour of the liver with enlarge ment of the caudate lobe, consistent with cirrhotic configuration. No liver lesions identified. Pat ient status post cholecystectomy. Pancreas unremarkable. Spleen is mildly enlarged. Adrenals unrem arkable. Kidneys unremarkable. Sub centimeter hypodensities left kidney, too small to characterize. No hydronephrosis. Aorta normal in caliber. Bladder unremarkable. Patient status post hysterecto my. Stomach unremarkable. No dilated loops small bowel. Appendix appears normal. Colonic divertic ulosis. Small fat-containing periumbilical hernia. Several mildly prominent bairon hepatic/portacava l lymph nodes appear unchanged. No ascites. IMPRESSION: 1. No acute inflammatory process identified in the abdomen or pelvis. 2. Cirrhotic configuration of the liver. 3. Mild splenomegaly. 4. Several stable mildly prominent bairon hepatic/portacaval lymph nodes, nonspecific and may relate t o underlying liver disease. 5. Colonic diverticulosis.
== END 2017-11-13 08:43 | disposition home or self-care (01) ==
LOC: RAD 08:42
PROVIDERS: ATTEND Physician Assistant
DX: R93.5 Abnormal findings on diagnostic imaging of other abdominal regions, including retroperitoneum (principal)

== ENCOUNTER 2017-12-15 07:25 | Inpatient (IN) ==
--- NOTE | 2017-12-15 08:06 | CT ---
EXAM: CT Head HISTORY: Change in sensorium COMPARISON: 08/30/2016 TECHNIQUE: CT head performed without contrast FINDINGS: There is no mass effect, midline shift, or intracranial hemmorhage. Padron white differenti ation is preserved. There is no extra-axial collection. The ventricles, sulci, and basal cisterns a re patent and symmetric. There is mild chronic ischemic disease of the white matter. There is no dep ressed calvarial fracture. The mastoid air cells are clear. The visualized paranasal sinuses are yakelin ar. There are intracranial atherosclerotic calcifications. IMPRESSION: 1. No acute intracranial abnormality. 2. Mild chronic ischemic disease of the white matter.
--- NOTE | 2017-12-15 09:04 | ED.PDOC ---
General ED Provider: Dr. ROSARIO LOUIS-ER Chief Complaint: Altered Mental Status Stated Complaint: here today for outpatient testing but arrived very groggy-- patient revealed she took 2 10mg percocet tabs Time Seen by Physician: 07:30 Mode of Arrival: Walk-In Information Source: Patient, Other (resp techs) Exam Limitations: Altered mental status Primary Care Provider: ARNEL HUBER Nursing and Triage Documentation Reviewed and Agree: Yes Reviewed sepsis parameters & appropriate labs ordered?: Yes System Inflammatory Response Syndrome: Not Applicable Sepsis Protocol: For patient's 13 years and over: Temp is 96.8 and below OR 101 and greater Pulse >90 BPM Resp >20/minute Acutely Altered Mental Status Are patient's symptoms suggestive of a new infection, such as: -Pneumonia -Skin, Soft Tissue -Endocarditis -UTI -Bone, Joint Infection -Implantable Device -Acute Abdominal Infection -Wound Infection -Meningitis -Blood Stream Catheter Infection -Unknown Neurological Complaint Exam - Altered Mental Status Complaint/Exam Current Mental Status: Confusion, Other (sedation) Onset: Gradual Symptoms Are: Still present Episodes Lasting: Minutes Initial Severity: Mild Current Severity: Moderate Eye Deviation Present: No Character: Reports: Responsiveness, Lethargy Aggravating: Reports: Medication change Alleviating: Reports: Spontaneous resolution Associated Signs and Symptoms: Denies: Dizziness, Weakness, Headache, Fever, Illness, Nuchal rigidity, Seizure, Nausea, Vomiting, Recently depressed, Trauma Related History: Reports: Similar episode Carotid Bruit Present: No Glascow Coma Scale (see protocol): 14 Nystagmus Present: No Gag Reflex Present: Yes Meningeal Signs Positive: No Focal Weakness: Present: None Focal Sensory Loss: Present: None Gait: Unsteady [id number]: Normal Findings Romberg Test Positive: No Babinski Sign: Negative Right, Negative Left Heel to Toe Normal: Yes Signs of Injury: Present: Normal findings Thrombolytics Considered: No Differential Diagnoses: Metabolic Disorder, Overdose Review of Systems - Review Of Systems Constitutional: Reports: No symptoms Eyes: Reports: No symptoms Ears, Nose, Mouth, Throat: Reports: No symptoms Respiratory: Reports: No symptoms Cardiac: Reports: No symptoms GI: Reports: No symptoms : Reports: No symptoms Musculoskeletal: Reports: No symptoms Skin: Reports: No symptoms Neurological: Reports: Weakness Endocrine: Reports: No symptoms Hematologic/Lymphatic: Reports: No symptoms All Other Systems: Reviewed and Negative Past Medical History - Past Medical History Previously Healthy: No Endocrine: Reports: Hypothyroid Cardiovascular: Reports: None Respiratory: Reports: COPD Hematological: Reports: Anemia Gastrointestinal: Reports: GERD Genitourinary: Reports: None Neuro/Psych: Reports: Depression Musculoskeletal: Reports: Back Pain Cancer: Reports: None Last Menstrual Period: n/a - Surgical History General Surgical History: Reports: Tubal ligation, Orthopedic - Family History Family History: Reports: None - Social History Smoking Status: Former smoker Hx Substance Use: No Alcohol Screening: None Physical Exam - Physical Exam Appearance: Well-appearing, No pain distress, Well-nourished Eyes: SCOUT, EOMI, Conjunctiva clear ENT: Ears normal, Nose normal, Oropharynx normal Neck: Supple Respiratory: Airway patent, Breath sounds clear, Breath sounds equal, Respirations nonlabored Cardiovascular: RRR, Pulses normal, No rub, No murmur GI/: Soft, Nontender, No masses, Bowel sounds normal, No Organomegaly Musculoskeletal: Normal strength, ROM intact, No edema, No calf tenderness Skin: Warm, Dry, Normal color Neurological: Sensation intact, Motor intact, Reflexes intact, Cranial nerves intact, Alert, Oriented Psychiatric: Affect appropriate, Mood appropriate Interpretation - Radiology Interpretation Radiology Interpretation By: Radiologist Radiology Results: Negative Exam Interpreted: CT Scan - EKG Interpretation Time of EKG #1: 09:05 Rate: Normal Rhythm: Sinus Ectopy: None Berkey: NL ST Segment: Normal Interpretation: nsr Re-Evaluation - Re-Evaluation Time of Re-Evaluation: 09:21 Status: Improved Vital Signs Stable: Yes Pain Level: 0 Appearance: NAD Lungs: Clear Skin: Warm and Dry Neuro: Alert and Oriented X3 CV: RRR Critical Care Note - Critical Care Note Total Time (mins): 0 Course - Course Hematology/Chemistry: 12/15/17 07:50 12/15/17 07:50 Orders, Labs, Meds: Lab Review 12/15/17 12/15/17 12/15/17 07:34 07:50 07:50 WBC 7.87 RBC 4.00 L Hgb 12.4 Hct 36.6 L MCV 91.5 MCH 31.0 MCHC 33.9 RDW Coeff of Juliana 13.1 Plt Count 174 Immature Gran % (Auto) 0.1 Neut % (Auto) 46.5 Lymph % (Auto) 45.5 [place] % (Auto) 5.7 Eos % (Auto) 1.8 Baso % (Auto) 0.4 Immature Gran # (Auto) 0.0 Neut # (Auto) 3.7 Lymph # (Auto) 3.6 H [place] # (Auto) 0.5 Eos # (Auto) 0.1 Baso # (Auto) 0.0 Puncture Site R rad O2 Saturation 82.0 L ABG pH 7.306 L ABG pCO2 58.5 H ABG pO2 52.0 L* ABG HCO3 29 H ABG Total CO2 31 H ABG Base Excess 3 H Tani Test + O2 Delivery Device FiO2 % 21.0 Sodium 137 Potassium 3.9 Chloride 100 Carbon Dioxide 26 Anion Gap 14.9 BUN 18 Creatinine 0.93 Estimated GFR (MDRD) 64.00 BUN/Creatinine Ratio 19.35 Glucose 295 H Calcium 9.5 Total Bilirubin 0.3 AST 74 H ALT 43 Alkaline Phosphatase 178 H Total Creatine Kinase CK-MB (CK-2) CK-MB (CK-2) % Troponin I Total Protein 8.3 H Albumin 3.2 L Globulin 5.1 Albumin/Globulin Ratio 0.63 Urine Color Urine Clarity Urine pH Ur Specific [place] Urine Protein Urine Glucose (UA) Urine Ketones Urine Blood Urine Nitrite Urine Bilirubin Urine Urobilinogen Ur Leukocyte Esterase Urine Microscopic RBC Urine Microscopic WBC Ur Squamous Epith Cells Urine Bacteria Urine Mucus Salicylate Level mg/dL Urine Opiates Screen Ur Oxycodone Screen Urine Methadone Screen Ur Propoxyphene Screen Acetaminophen Ur Barbiturates Screen U Tricyclic Antidepress Ur Phencyclidine Scrn Ur Amphetamine Screen U Methamphetamines Scrn U Benzodiazepines Scrn Urine Cocaine Screen U Cannabinoids Screen Plasma/Serum Alcohol 12/15/17 12/15/17 12/15/17 07:50 07:50 08:53 WBC RBC Hgb Hct MCV MCH MCHC RDW Coeff of Juliana Plt Count Immature Gran % (Auto) Neut % (Auto) Lymph % (Auto) [place] % (Auto) Eos % (Auto) Baso % (Auto) Immature Gran # (Auto) Neut # (Auto) Lymph # (Auto) [place] # (Auto) Eos # (Auto) Baso # (Auto) Puncture Site O2 Saturation ABG pH ABG pCO2 ABG pO2 ABG HCO3 ABG Total CO2 ABG Base Excess Tani Test O2 Delivery Device FiO2 % Sodium Potassium Chloride Carbon Dioxide Anion Gap BUN Creatinine Estimated GFR (MDRD) BUN/Creatinine Ratio Glucose Calcium Total Bilirubin AST ALT Alkaline Phosphatase Total Creatine Kinase 135 CK-MB (CK-2) 4.4 H CK-MB (CK-2) % 3.10121 Troponin I < 0.0100 Total Protein Albumin Globulin Albumin/Globulin Ratio Urine Color Yellow Urine Clarity Turbid Urine pH 5.5 Ur Specific [place] >=1.030 Urine Protein 1+ Urine Glucose (UA) 2+ Urine Ketones Negative Urine Blood 2+ Urine Nitrite Positive Urine Bilirubin Negative Urine Urobilinogen 0.2 Ur Leukocyte Esterase 1+ Urine Microscopic RBC 10-20 Urine Microscopic WBC 50-100 Ur Squamous Epith Cells Not present Urine Bacteria 4+ Urine Mucus 3+ Salicylate Level mg/dL < 5.0 Urine Opiates Screen Ur Oxycodone Screen Urine Methadone Screen Ur Propoxyphene Screen Acetaminophen 13 Ur Barbiturates Screen U Tricyclic Antidepress Ur Phencyclidine Scrn Ur Amphetamine Screen U Methamphetamines Scrn U Benzodiazepines Scrn Urine Cocaine Screen U Cannabinoids Screen Plasma/Serum Alcohol < 10.0 12/15/17 12/15/17 08:53 09:00 WBC RBC Hgb Hct MCV MCH MCHC RDW Coeff of Juliana Plt Count Immature Gran % (Auto) Neut % (Auto) Lymph % (Auto) [place] % (Auto) Eos % (Auto) Baso % (Auto) Immature Gran # (Auto) Neut # (Auto) Lymph # (Auto) [place] # (Auto) Eos # (Auto) Baso # (Auto) Puncture Site R rad O2 Saturation 97.0 ABG pH 7.316 L ABG pCO2 56.0 H ABG pO2 103.0 H ABG HCO3 28.6 H ABG Total CO2 30 H ABG Base Excess 2 Tani Test + O2 Delivery Device V mx FiO2 % 35.0 Sodium Potassium Chloride Carbon Dioxide Anion Gap BUN Creatinine Estimated GFR (MDRD) BUN/Creatinine Ratio Glucose Calcium Total Bilirubin AST ALT Alkaline Phosphatase Total Creatine Kinase CK-MB (CK-2) CK-MB (CK-2) % Troponin I Total Protein Albumin Globulin Albumin/Globulin Ratio Urine Color Urine Clarity Urine pH Ur Specific [place] Urine Protein Urine Glucose (UA) Urine Ketones Urine Blood Urine Nitrite Urine Bilirubin Urine Urobilinogen Ur Leukocyte Esterase Urine Microscopic RBC Urine Microscopic WBC Ur Squamous Epith Cells Urine Bacteria Urine Mucus Salicylate Level mg/dL Urine Opiates Screen Negative Ur Oxycodone Screen Positive Urine Methadone Screen Negative Ur Propoxyphene Screen Negative Acetaminophen Ur Barbiturates Screen Negative U Tricyclic Antidepress Positive Ur Phencyclidine Scrn Negative Ur Amphetamine Screen Negative U Methamphetamines Scrn Negative U Benzodiazepines Scrn Negative Urine Cocaine Screen Negative U Cannabinoids Screen Negative Plasma/Serum Alcohol Orders Category Date Time Status ABG DRAW REQUEST Stat CARDIO 12/15/17 07:34 Completed ABG DRAW REQUEST Stat CARDIO 12/15/17 09:08 Completed EKG-(ED ONLY) Stat CARDIO 12/15/17 07:34 Completed Ed Special Education Teacher [ED COMMANDING OFFICER MOTORIZED SQUAD APPLIED] .ONCE EMERGENCY 12/15/17 07:36 Active ABG Stat LAB 12/15/17 07:34 Completed ARTERIAL BLOOD GAS [ABG] Stat LAB 12/15/17 09:00 Completed CBC W/ AUTO DIFF Stat LAB 12/15/17 07:50 Completed COMPREHENSIVE METABOLIC PANEL Stat LAB 12/15/17 07:50 Completed CREATINE KINASE Stat LAB 12/15/17 07:50 Completed ETOH LEVEL [BLOOD ALCOHOL] Stat LAB 12/15/17 07:50 Completed SALICYLATE Stat LAB 12/15/17 07:50 Completed TROPONIN I Stat LAB 12/15/17 07:50 Completed TYLENOL LEVEL [ACETAMINOPHEN] Stat LAB 12/15/17 07:50 Completed URINALYSIS C & S IF INDICATED Stat LAB 12/15/17 08:53 Completed URINE CULTURE Routine LAB 12/15/17 08:53 Received URINE DRUG SCREEN (RAPID FOR ED) [DRUG SCREEN, URINE, LAB 12/15/17 08:53 Completed RAPID] Stat CT HEAD W/O CONTRAST Stat RADS 12/15/17 07:35 Completed Vital Signs: Temp Pulse Resp BP Pulse Ox 12/15/17 07:26 97.8 F 102 H 12 154/90 H 90 L Departure - Departure Time of Disposition: 09:21 Disposition: ADMITTED INPATIENT Discharge Problem: Altered mental status UTI (urinary tract infection) Qualifiers: Urinary tract infection type: site unspecified Hematuria presence: without hematuria Qualified Code(s): N39.0 - Urinary tract infection, site not specified Condition: Stable Pt referred to PMD for follow-up: Yes IPMP verified?: No Allergies/Adverse Reactions: Allergies hydrocodone bitartrate [From Lortab] Adverse Reaction (Verified 12/15/17 07:36) hydromorphone [From Dilaudid] Adverse Reaction (Verified 12/15/17 07:36) sumatriptan [From Imitrex] Adverse Reaction (Verified 12/15/17 07:36) sumatriptan succinate [From Imitrex] Adverse Reaction (Verified 12/15/17 07:36) CANT BREATHE, CHILLS nylon Adverse Reaction (Uncoded 03/16/17 17:17) Home Medications: Ambulatory Orders Oxycodone-Acetaminophen 10-325 [Percocet 10-325] 1 tab PO Q8H PRN 05/27/13 Ferrous Sulfate, Dried [Iron] 65 mg PO BID 11/12/14 Albuterol Sulfate [Ventolin Hfa] 2 puff IH BID PRN 08/04/15 Tizanidine HCl [Zanaflex] 4 mg PO TID PRN 09/21/15 Atorvastatin Calcium 20 mg PO DAILY 07/05/16 Glipizide [Glipizide ER] 10 mg PO DAILY 07/05/16 Disposition Discussed With: Patient
[2017-12-15] MEDS ORDERED: TYLENOL PO PRN (09:24)
[2017-12-15] MEDS ORDERED: NON-FORMULARY MEDICATION (Tizanidine Hcl [Zanaflex] 4 MG) PO PRN (09:26)
[2017-12-15] MEDS ORDERED: PROAIR HFA IH PRN (09:26)
[2017-12-15] MEDS ORDERED: ROCEPHIN ONE (09:48)
[2017-12-15] MEDS ORDERED: ZANAFLEX PO PRN (09:49)
[2017-12-15] MEDS: ROCEPHIN 1 GM in SODIUM CHLORIDE 50 ML IV SCH (10:08)
[2017-12-15 11:06] VITALS: BMI 36.9
[2017-12-15] MEDS: SODIUM CHLORIDE 1,000 ML IV SCH ×2 (11:08→22:55)
[2017-12-15] MEDS ORDERED: ZOFRAN 4 MG/2 ML IVP STA (13:10)
[2017-12-15] MEDS ORDERED: ZOFRAN 4 MG/2 ML IVP PRN (13:17)
[2017-12-15] MEDS: PROTONIX IV IVP SCH (13:25)
--- NOTE | 2017-12-15 17:05 | CT ---
EXAM: CT abdomen pelvis without contrast HISTORY: Nausea, vomiting COMPARISON: 11/13/2017 TECHNIQUE: CT abdomen pelvis performed without intravenous contrast. Coronal and sagittal reformatt ed images obtained. FINDINGS: Mild dependent density lung bases. No free air. No acute abnormalities of the bones. De generate change in the spine. Heart normal in size. Evaluation organ parenchyma limited without con trast. Liver is enlarged. Liver is nodular in contour consistent with cirrhotic configuration. Pat ient status post cholecystectomy. Pancreas unremarkable. Spleen is enlarged. Adrenals unremarkable . Kidneys unremarkable. Bladder unremarkable. Patient status post hysterectomy. Small fat-contain ing periumbilical hernia. Aorta normal in caliber. No ascites. Stomach appears normal. No dilated loops small bowel. Appendix appears normal. Mild colonic diverticulosis. Mild fecal retention in the colon. Several stable mildly prominent bairon hepatic/portacaval lymph nodes, nonspecific and may relate to underlying liver disease. No inflammatory stranding identified in the abdomen or pelvis. IMPRESSION: 1. No acute abnormality identified in the abdomen or pelvis. 2. Cirrhotic configuration of the liver. 3. Splenomegaly. 4. Several stable mildly prominent bairon hepatic/portacaval lymph nodes, nonspecific and may relate to underlying liver disease. 5. Colonic diverticulosis. 6. Mild fecal retention.
[2017-12-15] MEDS: HUMULIN R SUBCUT PRN ×2 (17:23→21:59)
[2017-12-15] MEDS ORDERED: FERROUS SULFATE DRIED 65 MG PO SCH (21:00)
[2017-12-15] MEDS: FERROUS SULFATE PO SCH (21:08)
[2017-12-16] MEDS: SYNTHROID PO SCH (05:38)
[2017-12-16] MEDS: HUMULIN R SUBCUT PRN ×4 (07:24→23:54)
[2017-12-16] MEDS: PROTONIX IV IVP SCH (08:52)
[2017-12-16] MEDS: ROCEPHIN 1 GM in SODIUM CHLORIDE 50 ML IV SCH (08:52)
[2017-12-16] MEDS: LIPITOR PO SCH (08:53)
[2017-12-16] MEDS: LOVENOX SUBCUT SCH (08:53)
[2017-12-16] MEDS: FERROUS SULFATE PO SCH ×2 (08:53→20:26)
[2017-12-16] MEDS: GLUCOTROL XL PO SCH (08:53)
[2017-12-16] MEDS ORDERED: PROTONIX IV IVP STA (12:17)
[2017-12-16] MEDS ORDERED: DECADRON 4 MG/ML SDV IVP STA (12:18)
[2017-12-16] MEDS ORDERED: GI COCKTAIL PO STA ×2 (12:18→21:44)
[2017-12-16] MEDS ORDERED: GI COCKTAIL PO ONE (12:25)
[2017-12-16] MEDS: CARAFATE PO SCH ×3 (12:30→20:26)
[2017-12-16] MEDS: SODIUM CHLORIDE 1,000 ML IV SCH ×2 (14:21→17:47)
[2017-12-16] MEDS: DESYREL PO SCH (20:26)
[2017-12-16] MEDS ORDERED: AMITRIPTYLINE HCL 75 MG PO SCH (21:00)
[2017-12-16] MEDS ORDERED: ELAVIL PO ONE (21:18)
[2017-12-17] MEDS: CARAFATE PO SCH ×4 (05:47→20:30)
[2017-12-17] MEDS: SYNTHROID PO SCH (05:47)
[2017-12-17] MEDS: ROCEPHIN 1 GM in SODIUM CHLORIDE 50 ML IV SCH (08:25)
[2017-12-17] MEDS: LOVENOX SUBCUT SCH (08:26)
[2017-12-17] MEDS: PROTONIX IV IVP SCH (08:26)
[2017-12-17] MEDS: LIPITOR PO SCH (08:28)
[2017-12-17] MEDS: GLUCOTROL XL PO SCH (08:28)
[2017-12-17] MEDS: FERROUS SULFATE PO SCH ×2 (08:28→20:31)
[2017-12-17] MEDS: HUMULIN R SUBCUT PRN ×2 (12:09→18:25)
[2017-12-17] MEDS: GI COCKTAIL PO SCH ×2 (13:39→18:28)
[2017-12-17] MEDS: SODIUM CHLORIDE 1,000 ML IV SCH (15:51)
[2017-12-17] MEDS: ELAVIL PO SCH (20:31)
[2017-12-17] MEDS: DESYREL PO SCH (20:31)
[2017-12-18] MEDS: SYNTHROID PO SCH (06:06)
[2017-12-18] MEDS: CARAFATE PO SCH ×4 (06:06→21:28)
[2017-12-18] MEDS ORDERED: DOBUTAMINE 250 ML IV ONE (07:39)
[2017-12-18] MEDS ORDERED: ATROPINE SULFATE PFS ONE (07:40)
[2017-12-18] MEDS: GI COCKTAIL PO SCH ×3 (09:02→17:29)
[2017-12-18] MEDS: MACROBID PO SCH ×2 (09:02→21:27)
[2017-12-18] MEDS: LIPITOR PO SCH (09:02)
[2017-12-18] MEDS: FERROUS SULFATE PO SCH ×2 (09:03→21:27)
[2017-12-18] MEDS: GLUCOTROL XL PO SCH (09:03)
[2017-12-18] MEDS: LOVENOX SUBCUT SCH (09:03)
[2017-12-18] MEDS: PROTONIX IV IVP SCH (09:03)
[2017-12-18] MEDS: HUMULIN R SUBCUT PRN ×3 (11:07→21:42)
--- NOTE | 2017-12-18 12:56 | HP ---
DATE OF SERVICE: 12/15/17 HISTORY OF PRESENT ILLNESS: This is a 52-year-old female who came for stress test and echocardiogram. She was having difficulty staying awake. When the Respiratory Department checked and the patient was kasper, saturation 79. The patient's saturation increased when she was awake. The patient had difficulty staying awake. During the assessment, speech is slurred. She took some Percocet 10 mg (supposed to be only one but she took 2 of them) as her hip hurt. She was not fully awake and alert so she was sent to the emergency room for evaluation. Dr. Dick saw the patient in the emergency room. White count was normal. ABG showed pH 7.306, pc02 58.5, p02 52. Chemistry: Glucose 295. Urine is turbid, 2+, nitrites positive, leukocyte esterase positive. Drug screen positive for Oxycodone. CT head negative for stroke. At that time, the patient was admitted to hospital for encephalopathy, urinary tract infection, hypoxemia, medication side effects and uncontrolled diabetes. Much information was not obtained at that time in the emergency room but when I went and saw the patient, she was more awake and alert. She says she has been having some nauseous feelings and vomited two to three times at home. Cough and congestion with shortness of breath is present. Chest pain is present. REVIEW OF SYSTEMS: CONSTITUTIONAL: Weakness, tiredness. No fever, no chills. HEENT: Normal. ENDOCRINE: No weight gain; no weight loss. CVS: No chest pain. No PND, no orthopnea. Shortness of breath. No PND, no orthopnea. RESPIRATORY: Cough and congestion. No hemoptysis. GI: Nausea and vomiting. Abdominal pain. No melena. : No hematuria. No polyuria. MUSCULOSKELETAL: She has some back pain. PSYCHIATRIC: Not anxious. No depression. No suicidal thoughts. No homicidal thoughts. SKIN: Intact, no open lesions. PAST MEDICAL HISTORY: Coronary artery disease Hypertension Dyslipidemia COPD Uses BIPAP at night History of colitis Osteoarthritis DJD spine Hypothyroidism Depression/anxiety Early cirrhosis, fatty liver PAST SURGICAL HISTORY: Tubal ligation Cholecystectomy Right shoulder surgery Left ankle surgery PERSONAL HISTORY: Does smoke. No alcohol. No ilicit drug use. FAMILY HISTORY: Diabetes MEDICATIONS: (HOME) Percocet Iron Ventolin Zanaflex Glipizide Atorvastatin Levothyroxine ALLERGIES: HYDROCODONE, HYDROMORPHONE, SUMATRIPTAN. PHYSICAL EXAMINATION: V/S: BP 151/90, respiratory rate 12, heart rate 102, temperature 97.8, saturation 90% on 2L/NC. GENERAL: Sick-looking lady lying in a bed just came from the bathroom after having the vomiting. HEENT: Atraumatic, normocephalic. No scleral icterus. Pallor positive. Mucosa dry. NECK: Supple. No JVD, no bruit. No lymphadenopathy. No thyromegaly. HEART: S1, S2 normal. No murmur. No cyanosis or clubbing. No ascites. LUNGS: Clear to auscultation. No rales or rhonchi. ABDOMEN: Discomfort all over. Soft. Bowel sounds are active. No CVA tenderness. No rigidity or guarding. EXTREMITIES: No pedal edema. No cyanosis or clubbing. MUSCULOSKELETAL: Normal joints, no swelling. NEUROLOGIC: The patient is awake and alert, more oriented. SKIN: Intact; no open lesions. LYMPHATIC: No lymph nodes palpable. LABS: White count 7.87, hemoglobin 12.4, hematocrit 36.6, platelet count 174. Sodium 137, potassium 3.9, chloride 100, bicarb 26, BUN 18, creatinine 0.96, glucose 295. AST 74, ALT 1178. Urine turbid, 2+ glucose, nitrites positive, leukocyte esterase positive. Toxicology negative. ASSESSMENT: 1. STATUS POST CHANGE IN MENTAL STATUS MOST LIKELY FROM THE MEDICATION OVERDOSE. CT OF THE HEAD NEGATIVE. 2. URINARY TRACT INFECTION. 3. DIABETES MELLITUS, UNCONTROLLED. 4. HISTORY OF CHEST PAIN AND SHORTNESS OF BREATH PLAN: 1. Admit the patient to the regular floor. 2. CBC, CMP today and daily. 3. Cardiac enzymes and troponin. 4. IV fluids. 5. Continue home medications. 6. Lovenox for DVT prophylaxis. 7. Rocephin 1 gm daily. 8. Daily I & O's. 9. Accu-Checks for coverage. TIME SPENT: MORE THAN 75 minutes MTDD
--- NOTE | 2017-12-18 14:36 | ECHO2D ---
Date of Exam: 12/18/17 Ordering Physician: DR. EVAN HENDERSON/ARNEL HUBER Room #: [id number] Reason for Echo: CHEST TIGHTNESS, SOB, DM M-Mode Normal Adult Results LV Dimensions Normal Adult Results AoV Opening excursions >1.6 >1.6 LVEDD-base- 3.5-5.8 5.6 Ao root dimensions 2.0-3.7 3.3 LVESD-base- 3.1-4.6 L. Atrium dimensions 1.9-3.8 4.7 Post. Wall thickness 0.8-1.1 1.2 IV septum (thickness) 0.7-1.2 1.2 Post. Wall excursion 0.72-1.3 NORMAL Septal motion NORMAL Systolic motion R. Ventricular cavity 1.5-2.0 NORMAL LVEF 60% 50 TO 55% Paradoxical septal wall motion NORMAL 2-D : 2-D M Mode Echocardiogram was performed using apical four chamber and left parasternal long and short axis views. Mitral, tricuspid and aortic valves appear to be normal. Contractility of the left ventricle seems to be normal, so is the cavity size. Enlarged Left atrial cavity size. Aortic root appears to be normal. There is no pericardial effusion. There is no thrombus noted in the left ventricular or left aortic cavity. No mitral valve prolapse noted. M-MODE: MV: NORMAL AV: NORMAL TV: NORMAL PV: CHAMBER SIZE: ENLARGED LEFT ATRIAL CAVITY--BORDERLINE LEFT VENTRICLE CAVITY WALL MOTION: NORMAL PERICARDIUM: NORMAL INTERPRETATION: 1. LEFT VENTRICULAR HYPERTROPHY --BORDERLINE WITH ENLARGED LEFT ATRIAL CAVITY 2. NORMAL LEFT VENTRICULAR CONTRACTILITY WITH EJECTION FRACTION 50 TO 55% 3. NORMAL VALVES 4. BORDERLINE LEFT VENTRICLE CAVITY ENLARGEMENT MTDD
--- NOTE | 2017-12-18 14:38 | ECHOSTRESS ---
Date of Exam: 12/18/17 Ordering Physician: DR. EVAN HENDERSON/ARNEL HUBER Reason for Echo: CHEST TIGHTNESS, DOBUTAMINE STRESS TEST--NO ISCHEMIA M-Mode Normal Adult Results LV Dimensions Normal Adult Results AoV Opening excursions >1.6 LVEDD-base- 3.5-5.8 Ao root dimensions 2.0-3.7 LVESD-base- 3.1-4.6 L. Atrium dimensions 1.9-3.8 Post. Wall thickness 0.8-1.1 IV septum (thickness) 0.7-1.2 Post. Wall excursion 0.72-1.3 Septal motion Systolic motion R. Ventricular cavity 1.5-2.0 LVEF 60% Paradoxical septal wall motion 2-D: NORMAL LEFT VENTRICULAR CONTRACTILITY--RESTING AND WITH DOBUTAMINE INFUSION M-MODE: MV: AV: TV: PV: CHAMBER SIZE: WALL MOTION: NORMAL LEFT VENTRICULAR CONTRACTILITY--RESTING AND WITH DOBUTAMINE INFUSION PERICARDIUM: INTERPRETATION: 1. NORMAL LEFT VENTRICULAR CONTRACTILITY--RESTING AND WITH DOBUTAMINE INFUSION MTDD
--- NOTE | 2017-12-18 14:47 | DOBSTECHO ---
Date of Test: 12/18/17 Ordering Physician: DR. EVAN HENDERSON Reason for Examination: CHEST PAIN, DM, SOB Current Medications: PERCOCET, GLIPIZIDE, ATORVASTATIN, ZANAFLEX Height: 67 "Weight: 236 LBS Target Heart Rate: 144/170 S-T Segment Stage Time HR BPM BP MMHG Rhythm +/- Elevation Depression Comments/ Symptoms Control Sitting 77 110/70 SR X NONE Dobutamine 250mg/D5W 5cmg/KG/mn 10cmg/KG/mn 3:00 95 122/78 SR X NONE 15cmg/KG/mn 2:00 102 136/72 SR X NONE 20cmg/KG/mn 2:00 125 142/68 SR X NONE 25cmg/KG/mn 2:00 136 140/62 SR X NONE 30cmg/KG/mn :29 144 136/62 SR X NONE 35cmg/KG/mn 40cmg/KG/mn Time: 4" HR B/P Time: 7" HR B/P Time: 12" HR B/P Recovery 122 132/86 Recovery 98 Recovery Total Time: 9:29 Maximum Heart Rate Reached: 144 BPM Interpretation: 96% OXYGEN SATURATION ON ROOM AIR AT REST 1. NO EVIDENCE OF ISCHEMIA BY ST-T WAVE 2. NO CHEST PAIN OF DISCOMFORT 3. NORMAL LEFT VENTRICULAR CONTRACTILITY--RESTING AND WITH DOBUTAMINE INFUSION COPY TO ARACELI MURPHY
--- NOTE | 2017-12-18 15:00 | PN ---
DATE OF SERVICE: 12/16/17 SUBJECTIVE: The patient was admitted yesterday after having change in mental status and syncopal episode. The patient was complaining some chest pain after getting to the shower. The patient is supposed to get a stress and echocardiogram, we will go ahead and order. The patient points in the epigastric area for the pain and CT abdomen showed the cirrhotic liver and splenomegaly otherwise the patient is feeling somewhat better now with the GI cocktail. REVIEW OF SYSTEMS: CONSTITUTIONAL: No fever, no chills. HEENT: Normal. ENDOCRINE: No weight gain, no weight loss. CVS: No angina symptoms. No CHF symptoms. No palpitations. No atypical chest pain for CAD. No shortness of breath. No PND, no orthopnea. RESPIRATORY: No cough, no hemoptysis. GI: No nausea, no vomiting. No abdominal pain. : No hematuria. No polyuria. MUSCULOSKELETAL: No joint swelling. PSYCHIATRIC: Not anxious. No depression. No suicidal thoughts. No homicidal thoughts. SKIN: Intact. No rash. PHYSICAL EXAMINATION: V/S: Blood pressure 125/73, respiratory rate 16, heart rate 87, temperature 97.8 with saturation is 96% on the room air. HEENT: Normocephalic, atraumatic. Mucosa dry. Pallor positive. NECK: Supple. No JVD, no carotid bruit. No lymphadenopathy. LUNGS: Clear to auscultation. No rales or rhonchi. Epigastric discomfort. HEART: S1, S2 normal. No S3. No murmur, gallop or regurgitation. ABDOMEN: Soft, nontender. Bowel sounds active. No rigidity. No rebound or guarding. No CVA tenderness. EXTREMITIES: No cyanosis, clubbing. 1+ edema. MUSCULOSKELETAL: No joint swelling. NEUROLOGIC: Awake, alert, oriented times three. No focal deficit. LYMPHATIC: No lymph nodes palpable. SKIN: Intact. LABS: WBC 6.99, hgb 11.1, hct 33.1, plt count 150, sodium 137, potassium 4.0, chloride 101, bicarb 28, BUN 17, creatinine 0.74, glucose 264. ASSESSMENT: 1. Chest pain rule out ACS 2. Epigastric pain 3. Peptic ulcer disease 4. Liver Cirrhosis 5. Obesity 6. Dyslipidemia 7. COPD 8. Sleep apnea on CPAP 9. History of cholecystectomy 10.Hysterectomy PLAN: 1. Will do anemia profile 2. Order the stress test and echocardiogram 3. Continue the Lovenox and Protonix and Carafate 4. Will decrease the IV fluids to 40ml per hour TIME SPENT: More than 35 minutes MTDD
[2017-12-18] MEDS: SODIUM CHLORIDE 1,000 ML IV SCH ×2 (17:25→23:20)
[2017-12-18] MEDS: DESYREL PO SCH (21:27)
[2017-12-18] MEDS: ELAVIL PO SCH (21:27)
[2017-12-19] MEDS: SYNTHROID PO SCH (05:44)
[2017-12-19] MEDS: HUMULIN R SUBCUT PRN (07:01)
[2017-12-19] MEDS: LIPITOR PO SCH (08:40)
[2017-12-19] MEDS: CARAFATE PO SCH (08:41)
[2017-12-19] MEDS: FERROUS SULFATE PO SCH (08:41)
[2017-12-19] MEDS: MACROBID PO SCH (08:41)
[2017-12-19] MEDS: GLUCOTROL XL PO SCH (08:41)
[2017-12-19] MEDS: LOVENOX SUBCUT SCH (08:42)
[2017-12-19] MEDS: GI COCKTAIL PO SCH (08:42)
[2017-12-19 10:14] VITALS: BP 146/89; TEMP 97.5
--- NOTE | 2017-12-19 11:28 | PN ---
DATE OF SERVICE: 12/18/17 SUBJECTIVE: The patient was taken for the stress echocardiogram and Dobutamine stress echo and sestamibi today. Feeling some better still having some abdominal pain. REVIEW OF SYSTEMS: CONSTITUTIONAL: No fever, no chills. HEENT: Normal. ENDOCRINE: No weight gain, no weight loss. CVS: No angina symptoms. No CHF symptoms. No palpitations. No atypical chest pain for CAD. No shortness of breath. No PND, no orthopnea. RESPIRATORY: No cough, no hemoptysis. GI: No nausea, no vomiting. No abdominal pain. : No hematuria. No polyuria. MUSCULOSKELETAL: No joint swelling. PSYCHIATRIC: Not anxious. No depression. No suicidal thoughts. No homicidal thoughts. SKIN: Intact. No rash. PHYSICAL EXAMINATION: V/S: Blood pressure 91/54, respiratory rate 20, heart rate 92 and temperature 97.7. HEENT: Normocephalic, atraumatic. Mucosa . NECK: Supple. No JVD, no carotid bruit. No lymphadenopathy. LUNGS: Clear to auscultation. No rales or rhonchi. HEART: S1, S2 normal. No S3. No murmur, gallop or regurgitation. ABDOMEN: Soft, nontender. Bowel sounds active. No rigidity. No rebound or guarding. No CVA tenderness. EXTREMITIES: No cyanosis, clubbing or pedal edema. MUSCULOSKELETAL: No joint swelling. NEUROLOGIC: Awake, alert, oriented times three. No focal deficit. LYMPHATIC: No lymph nodes palpable. SKIN: Intact. LABS: WBC 8.43, hgb 11.8, hct 34.5, plt count 142, sodium 139, potassium 3.7, chloride 103, bicarb 28, BUN 14, creatinine 0.75 and glucose 218. ASSESSMENT: 1. Status post change in mental status and encephalopathy 2. Urinary tract infection organism e-coli 3. Chest pain noncardiac 4. Liver cirrhosis 5. Diabetes 6. Cryptogenic liver cirrhosis 7. Diabetes with A1c 10.1 PLAN: 1. Lifestyle modification weight loss diet been discussed 2. Severe Triglyceridemia 708 been discussed, will cut down on the milk 3. Weight loss been discussed TIME SPENT: More than 35 minutes MTDD
--- NOTE | 2017-12-19 11:36 | PN ---
DATE OF SERVICE: 12/17/17 SUBJECTIVE: The patient was admitted with status post change in mental status, chest pain and the patient is more awake and alert. The patient has cirrhosis. The patient doesn't have any history of Hepatitis B or Hepatitis A which was discussed with the patient in length. The patient was complaining of chest pain and tightness which was being helped with GI cocktail. REVIEW OF SYSTEMS: CONSTITUTIONAL: No fever, no chills. HEENT: Normal. ENDOCRINE: No weight gain, no weight loss. CVS: No angina symptoms. No CHF symptoms. No palpitations. No atypical chest pain for CAD. No shortness of breath. No PND, no orthopnea. RESPIRATORY: No cough, no hemoptysis. GI: No nausea, no vomiting. No abdominal pain. : No hematuria. No polyuria. MUSCULOSKELETAL: No joint swelling. PSYCHIATRIC: Not anxious. No depression. No suicidal thoughts. No homicidal thoughts. SKIN: Intact. No rash. PHYSICAL EXAMINATION: V/S: blood pressure 137/76, respiratory rate 18, heart rate 78, temperature 97.4 with saturation 97% on 2 liters GENERAL: Sick looking lady with epigastric discomfort present, obese lady. HEENT: Normocephalic, atraumatic. Mucosa Dry. Pallor positive. No icterus. NECK: Supple. No JVD, no carotid bruit. No lymphadenopathy. LUNGS: Clear to auscultation. No rales or rhonchi. HEART: S1, S2 normal. No S3. No murmur, gallop or regurgitation. ABDOMEN: Soft, nontender. Bowel sounds active. No rigidity. No rebound or guarding. No CVA tenderness. EXTREMITIES: No cyanosis, clubbing or pedal edema. MUSCULOSKELETAL: No joint swelling. NEUROLOGIC: Awake, alert, oriented times three. No focal deficit. LYMPHATIC: No lymph nodes palpable. SKIN: Intact. LABS: Sodium 137, potassium 3.9, chloride 103, bicarb 26, BUN 14, creatinine 0.66 and glucose 231. A1c 10.1, AST 77, Alkaline phosphatase 148, ammonia 43, WBC 6.67, hgb 12.1, hct 35.6 and plt count 141. ASSESSMENT: 1. Status post change in mental status 2. Encephalopathy 3. Urinary tract infection 4. Chest pain rule out ASC 5. History of liver cirrhosis 6. Anemia 7. Depression 8. Anxiety 9. Sleep apnea on CPAP 10.Hypothyroidism PLAN: 1. Continue giving the GI cocktail as it is helping 2. Change to Dobutamine Stress echo as the patient can not walk 3. Lovenox for the DVT prophylaxis 4. Protonix and Carafate. TIME SPENT: More than 35 minutes MTDD
--- NOTE | 2017-12-20 09:45 | DS ---
DATE OF SERVICE: 12/19/17 FINAL DIAGNOSIS: 1. Encephalopathy secondary to the side effect of the medication. The patient accidently took extra pills 2. UTI, organism E-coli 3. Chest pain, noncardiac 4. Hypertension 5. Diabetes 6. Hypothyroidism 7. Dyslipidemia 8. COPD 9. Anemia 10.GERD 11.Colitis by history 12.Peptic ulcer disease 13.Osteoarthritis 14.Depression 15.Cryptogenic liver cirrhosis 16.Tonsillectomy 17.Hysterectomy 18.Left elbow tendon repair 19.Right rotator cuff repair 20.Cholecystectomy 21.Former smoker DISCHARGE INSTRUCTIONS: Discharge the patient home. Followup with Dr. Chicas on 12/26/17. Keep the appointment with Dr. Marcos as scheduled for the discharge. Resume home medications. MEDICATIONS AT DISCHARGE: Percocet Iron Zanaflex Glipizide Atorvastatin Levothyroxine Amitriptyline Trazodone NEW PRESCRIPTIONS: Protonix 40mg PO daily Zofran 4mg PRN Macrobid 100mg twice a day Vitamin E 600mg twice a day Fish oil 1000 mg Q two capsules twice a day DIET INSTRUCTIONS: Cardiac and healthy ACTIVITY: As much as tolerated DISEASE SPECIFIC EDUCATION: Peptic ulcer disease Coronary artery disease, been discussed Liver cirrhosis No alcohol discussed and verbalized understanding. HOSPITAL COURSE: Ivette Parker 52 year old female who usually goes to the [facility] was scheduled for the outpatient stress test and echocardiogram. When she saw Dr. Marcos as an outpatient for consultation he scheduled the tests and when the patient came to the test the patient was lethargic and groggy so the cardiopulmonary department brought the patient to the emergency room and Dr. Dick saw her in the emergency room. WBC was normal, PT/INR normal. ABG showed the pH 7.306, pCO2 58.5 and pO2 52. Sugars 295. Urine positive for the urinary tract infection. Toxicology screen negative other than the oxycodone positive. At that time when the patient was supposed admitted and the patient was asked for the admission so she preferred to be admitted under me as per the emergency room. When they called me for the admission the patient been admitted and started on the antibiotic Rocephin, Lovenox for the DVT prophylaxis, IV fluids was given. By next day the patient was more awake and alert. Ct abdomen and pelvic showed the liver cirrhosis and asked about the question of Hepatitis the patient is not aware of it and Hepatitis panel was done. The patient started complaining of the epigastric pain, GI cocktail, Protonix and Carafate was given. The patient is being more awake and alert. Scheduled for the stress echocardiogram. Dobutamine and stress echo sestamibi was done which was negative for any acute changes. At that time the patient being discharge home and advised to followup with me in the office as patient wanted to come and get followed by me as per the patient's wish. TIME SPENT: MORE THAN 65 MINUTES MTDD
== END 2017-12-19 11:28 | disposition home or self-care (01) | DRG 689 ==
LOC: ED 07:25 → MEDSURG B 09:27
PROVIDERS: ADMIT Emergency Medicine; ATTEND Emergency Medicine
DX: N39.0 Urinary tract infection, site not specified (principal); G93.40 Encephalopathy, unspecified; B96.20 Unspecified Escherichia coli [E. coli] as the cause of diseases classified elsewhere; R07.9 Chest pain, unspecified; R06.02 Shortness of breath; J44.9 Chronic obstructive pulmonary disease, unspecified; E11.9 Type 2 diabetes mellitus without complications; E03.9 Hypothyroidism, unspecified; I10 Essential (primary) hypertension; D64.9 Anemia, unspecified; K21.9 Gastro-esophageal reflux disease without esophagitis; M19.90 Unspecified osteoarthritis, unspecified site; M54.9 Dorsalgia, unspecified; F41.8 Other specified anxiety disorders; G47.30 Sleep apnea, unspecified; K74.69 Other cirrhosis of liver; R10.13 Epigastric pain; K27.9 Peptic ulcer, site unspecified, unspecified as acute or chronic, without hemorrhage or perforation; E78.5 Hyperlipidemia, unspecified; Z16.11 Resistance to penicillins
CPT/HCPCS: 36415; 80053; 80061; 80074; 80306; 80307; 81001; 82140; 82550; 82553; 82803; 82962; 83036; 84443; 84484; 85025; 85610; 87086; 87186; 93005; 93010; 96365; 99284

== ENCOUNTER 2018-01-01 10:42 | Outpatient (CLI) | END 2018-01-01 10:43 | disposition home or self-care (01) | LOC: RAD 10:42 | PROVIDERS: ATTEND Emergency Medicine | DX: Z12.31 Encounter for screening mammogram for malignant neoplasm of breast (principal) | CPT/HCPCS: 77067 ==

== ENCOUNTER 2018-01-15 09:17 | Outpatient (CLI) ==
--- NOTE | 2018-01-15 10:36 | MAMMO ---
EXAM: Right digital diagnostic mammogram (2-D and 3-D) History: Right breast mass. Comparison: Bilateral mammogram 01/01/2018 Findings: Right breast density is scattered. MLO and CC views of the bilateral breasts confirm the presence of a 5 mm right breast nodule within the lower outer quadrant. No suspicious microcalcifica tions. Impression: Indeterminate 5 mm right breast nodule. Recommend further evaluation with ultrasound. BIRADS 0
--- NOTE | 2018-01-15 10:40 | US ---
EXAM: Right breast ultrasound. History: Right breast nodule. Comparison: Right diagnostic mammogram 01/15/2018 Technique: Multiple sonographic images through the right breast were obtained. Color duplex Doppler was used to interrogate vascular flow. Findings: No masses, cysts or fluid collections are identified. Impression: Although no sonographic abnormalities are identified, recommend 6-month follow-up right diagnostic mammogram to document stability of the 5 mm right breast nodule seen only on mammography. BIRADS 3
== END 2018-01-15 09:18 | disposition home or self-care (01) ==
LOC: RAD 09:17
PROVIDERS: ATTEND Emergency Medicine
DX: R92.8 Other abnormal and inconclusive findings on diagnostic imaging of breast (principal)

== ENCOUNTER 2018-02-23 15:30 | Outpatient (CLI) ==
--- NOTE | 2018-02-23 16:16 | DI ---
EXAM: Three views of the lumbar spine. History: Lower back pain. Findings: Cholecystectomy clips. No acute fracture or subluxation of the lumbar spine. Moderate to severe disc space narrowing at L5- S1. Moderate to severe facet hypertrophy at L5-S1. Mild to moderate degenerative disc disease withi n the lower thoracic spine. Impression: 1. No acute osseous abnormality of the lumbar spine. 2. Moderate to severe degenerative changes at L5-S1
== END 2018-02-23 15:31 | disposition home or self-care (01) ==
LOC: RAD 15:30
PROVIDERS: ATTEND Emergency Medicine
DX: E78.5 Hyperlipidemia, unspecified (principal); E03.9 Hypothyroidism, unspecified; M54.5 Low back pain; G89.29 Other chronic pain
CPT/HCPCS: 36415; 81001; 85025

== ENCOUNTER 2018-03-10 14:58 | Emergency (ER) ==
[2018-03-10 15:04] VITALS: BP 128/85; TEMP 99.4; BMI 36.6
[2018-03-10] MEDS ORDERED: MORPHINE 2 MG/ML SYRINGE IM STA (15:17)
[2018-03-10] MEDS ORDERED: ROCEPHIN IM STA (15:18)
[2018-03-10] MEDS ORDERED: LIDOCAINE HCL 1% SDV IM STA (15:18)
--- NOTE | 2018-03-10 15:21 | ED.PDOC ---
General ED Provider: Dr. PINO VALLES Chief Complaint: Abscess Stated Complaint: abcess perineum Time Seen by Physician: 15:00 (seen with JEMIMA VICENTE RN AT ALL TIMES ) Mode of Arrival: Walk-In Information Source: Patient Exam Limitations: No limitations Primary Care Provider: EVAN [facility] [address] Nursing and Triage Documentation Reviewed and Agree: Yes Does patient meet sepsis criteria?: No System Inflammatory Response Syndrome: Not Applicable Sepsis Protocol: For patient's 13 years and over: Temp is 96.8 and below OR 101 and greater Pulse >90 BPM Resp >20/minute Acutely Altered Mental Status Are patient's symptoms suggestive of a new infection, such as: -Pneumonia -Skin, Soft Tissue -Endocarditis -UTI -Bone, Joint Infection -Implantable Device -Acute Abdominal Infection -Wound Infection -Meningitis -Blood Stream Catheter Infection -Unknown Skin Complaint Exam - Skin/Soft Tissue Complaint/Exam Onset/Duration: ABSCESS PERINEUM X 2 DAYS Symptoms Are: Still present Timing: Constant Initial Severity: Mild Current Severity: Mild Character: Reports: Redness, Swelling Aggravating: Reports: Touch Alleviating: Reports: None Associated Signs and Symptoms: Denies: Fever, Chills, Itching, Drainage, Bruising, Tenderness, Red streaks, Joint swelling Related Surgical History: Reports: None Recent Exposure to Others w/Similar Symptoms: No Skin Findings: Present: Pustules (NOT POINTING) Joint Tenderness Present: No Differential Diagnoses: Abscess, MRSA Review of Systems - Review Of Systems Constitutional: Reports: No symptoms Eyes: Reports: No symptoms Ears, Nose, Mouth, Throat: Reports: No symptoms Respiratory: Reports: No symptoms Cardiac: Reports: No symptoms GI: Reports: No symptoms : Reports: No symptoms Musculoskeletal: Reports: No symptoms Skin: Reports: Other (ABSCESS ) Neurological: Reports: No symptoms Endocrine: Reports: No symptoms Hematologic/Lymphatic: Reports: No symptoms All Other Systems: Reviewed and Negative Past Medical History - Past Medical History Previously Healthy: No Endocrine: Reports: Hypothyroid Cardiovascular: Reports: None Respiratory: Reports: COPD Hematological: Reports: Anemia Gastrointestinal: Reports: GERD Genitourinary: Reports: None Neuro/Psych: Reports: Depression Musculoskeletal: Reports: Back Pain Cancer: Reports: None Last Menstrual Period: hysterectomy - Surgical History General Surgical History: Reports: Tubal ligation, Orthopedic - Family History Family History: Reports: None - Social History Smoking Status: Former smoker Hx Substance Use: No Alcohol Screening: None Physical Exam - Physical Exam Appearance: Well-appearing, No pain distress, Well-nourished Eyes: SCOUT, EOMI, Conjunctiva clear ENT: Ears normal, Nose normal, Oropharynx normal Respiratory: Airway patent, Breath sounds clear, Breath sounds equal, Respirations nonlabored Cardiovascular: RRR, Pulses normal, No rub, No murmur GI/: Soft, Nontender, No masses, Bowel sounds normal, No Organomegaly Musculoskeletal: Normal strength, ROM intact, No edema, No calf tenderness Skin: Warm, Dry (1CM NONEPOINTING PUSTULE NOTED ) Neurological: Sensation intact, Motor intact, Reflexes intact, Cranial nerves intact, Alert, Oriented Psychiatric: Affect appropriate, Mood appropriate Critical Care Note - Critical Care Note Total Time (mins): 0 Course - Course Orders, Labs, Meds: Orders Category Date Time Status Ceftriaxone Sodium [Rocephin] MEDS 03/10/18 15:18 Stat 1 gm IM ONCE STA Lidocaine HCl/Pf [Lidocaine HCl 1% Sdv] MEDS 03/10/18 15:18 Stat 2.1 ml IM ONCE STA Morphine Sulfate [Morphine 2 mg/ml Syringe] MEDS 03/10/18 15:17 Stat 4 mg IM ONCE STA Medications Discontinued Medications Generic Name Dose Route Start Last Admin Trade Name Patric PRN Reason Stop Dose Admin Ceftriaxone Sodium 1 gm 03/10/18 15:18 Rocephin IM 03/10/18 15:19 ONCE STA Lidocaine HCl 2.1 ml 03/10/18 15:18 Lidocaine Hcl 1% Sdv IM 03/10/18 15:19 ONCE STA Morphine Sulfate 4 mg 03/10/18 15:17 Morphine 2 Mg/Ml Syringe IM 03/10/18 15:18 ONCE STA Vital Signs: Temp Pulse Resp BP Pulse Ox 03/10/18 14:59 99.4 F 117 H 20 128/85 94 L Departure - Departure Time of Disposition: 15:22 (THE ABSCESS IS NONE POINTING ) Disposition: HOME SELF-CARE Discharge Problem: Abscess Instructions: Abscess (ED) Condition: Good Pt referred to PMD for follow-up: Yes IPMP verified?: No Additional Instructions: Please call your Family Physician as soon as possible to schedule a follow-up appointment. Allergies/Adverse Reactions: Allergies hydrocodone bitartrate [From Lortab] Adverse Reaction (Verified 03/10/18 15:06) hydromorphone [From Dilaudid] Adverse Reaction (Verified 03/10/18 15:06) sumatriptan [From Imitrex] Adverse Reaction (Verified 03/10/18 15:06) sumatriptan succinate [From Imitrex] Adverse Reaction (Verified 03/10/18 15:06) CANT BREATHE, CHILLS nylon Adverse Reaction (Uncoded 03/16/17 17:17) Home Medications: Ambulatory Orders Oxycodone-Acetaminophen 10-325 [Percocet 10-325] 1 tab PO Q8H PRN 05/27/13 Tizanidine HCl [Zanaflex] 4 mg PO TID PRN 09/21/15 Atorvastatin Calcium 20 mg PO DAILY 07/05/16 Amitriptyline HCl 75 mg PO BEDTIME 12/16/17 Ondansetron HCl [Zofran Tab] 4 mg PO Q6-8H PRN #24 tablet 12/19/17 Metformin HCl 1,000 mg PO BID 12/26/17 Ferrous Sulfate, Dried [Iron] 28 mg PO DAILY 02/08/18 Levothyroxine Sodium 0.088 mcg PO DAILY 02/08/18 Promethazine HCl 12.5 mg PO every 8 hours PRN 02/08/18 Albuterol Sulfate 0.083% Neb [Albuterol 0.083% Neb] 1 vial NEB RTQ8H PRN Gifford-3 Fatty Acids/Fish Oil [Fish Oil 1,000 mg Capsule] 1 each PO DAILY Vitamin E (Dl,Tocopheryl Acet) [Vitamin E] 100 unit PO DAILY 03/10/18 Disposition Discussed With: Patient
[2018-03-10] MEDS ORDERED: ZOFRAN 4 MG/2 ML IM STA (15:24)
== END 2018-03-10 15:57 | disposition home or self-care (01) ==
LOC: ED 14:58
DX: L02.215 Cutaneous abscess of perineum (principal)
CPT/HCPCS: 96372; 99282

== ENCOUNTER 2018-04-04 12:28 | Outpatient (CLI) | END 2018-04-04 12:29 | disposition home or self-care (01) | LOC: LAB 12:28 | PROVIDERS: ATTEND Family Medicine | DX: E78.2 Mixed hyperlipidemia (principal); E03.9 Hypothyroidism, unspecified; I10 Essential (primary) hypertension; E11.9 Type 2 diabetes mellitus without complications | CPT/HCPCS: 36415; 80053; 82043; 83036; 84443; 85025 ==

== ENCOUNTER 2018-04-10 08:13 | Outpatient (CLI) ==
--- NOTE | 2018-04-10 10:57 | US ---
EXAM: Ultrasound abdomen limited. HISTORY: Abnormal liver function tests. COMPARISON: CT 12/15/2017. TECHNIQUE: Abdominal, real time with image documentation: limited (eg, single organ, quadrant, foll ow-up) FINDINGS: The liver demonstrates increased size. There is subtle nodular surface contour with coars ening of the parenchymal echotexture pattern. No focal lesion identified. Portal venous flow is nor mal in direction. The gallbladder is absent. Common duct measures approximately 0.5 cm. Visualized portions of the pancreas are unremarkable. IMPRESSION: Cirrhotic liver morphology.
== END 2018-04-10 08:14 | disposition home or self-care (01) ==
LOC: RAD 08:13
PROVIDERS: ATTEND Family Medicine
DX: R74.8 Abnormal levels of other serum enzymes (principal); K74.60 Unspecified cirrhosis of liver

== ENCOUNTER 2018-04-19 18:21 | Outpatient (CLI) | END 2018-04-19 18:22 | disposition home or self-care (01) | LOC: FCC-LAB 18:21 | PROVIDERS: ATTEND Family Medicine | DX: N30.90 Cystitis, unspecified without hematuria (principal) | CPT/HCPCS: 87086 ==

== ENCOUNTER 2018-07-04 11:48 | Outpatient (CLI) | END 2018-07-04 11:49 | disposition home or self-care (01) | LOC: FCC-LAB 11:48 | PROVIDERS: ATTEND Family Medicine | DX: E11.9 Type 2 diabetes mellitus without complications (principal) | CPT/HCPCS: 36415; 83037 ==

== ENCOUNTER 2018-07-15 09:52 | Emergency (ER) ==
[2018-07-15 09:56] VITALS: BP 139/97; TEMP 98.5; BMI 36.8
--- NOTE | 2018-07-15 11:03 | CT ---
EXAM: CT lumbar spine without contrast. HISTORY: Left flank pain COMPARISON: CT of the abdomen pelvis from today and lumbar spine series from 02/23/2018 TECHNIQUE: Helical axial CT of the lumbar spine was performed without contrast with coronal and sagi ttal reconstructions. FINDINGS: There is no compression or subluxation or listhesis. Alignment is anatomic. There are no p ars defects. Visualized portions of the pelvis show no sacral fracture or sacroiliitis. There are no acute soft tissue abnormalities. There are 5 lumbar type vertebral bodies. T12-L1: Normal L1-2: Normal L2-3: Normal L3-4: The disc space is well-preserved. There is a minimal bulge and some minimal facet and ligament ous hypertrophy. Canal stenosis: None. L3 neural foraminal stenosis: Mild bilateral. L4 lateral recess stenosis: None. L4-5: The disc space is well-preserved. There is a broad-based bulge and fairly advanced facet and l igamentous hypertrophy. Canal stenosis: Mild. L4 neural foraminal stenosis: Moderate bilateral. L5 lateral recess stenosis: None. L5-S1: There is very advanced disc space narrowing with vacuum disc and a calcified large broad-based bulge with moderate facet and ligamentous hypertrophy. This bulge is eccentric to the left with a l eft sub articular and foraminal component. Canal stenosis: Mild. L5 neural foraminal stenosis: Moderate right, severe left. S1 lateral recess stenosis: Mild right, moderate left. IMPRESSION: 1. Advanced degenerative changes at the lumbosacral junction with resulting severe left L5 foraminal narrowing. 2. Other mild to moderate degenerative changes as above.
--- NOTE | 2018-07-15 11:23 | CT ---
EXAM: CT abdomen pelvis without contrast TECHNIQUE: Helical axial CT of the abdomen and pelvis was performed without contrast with coronal an d sagittal reconstructions. COMPARISON: Abdominal ultrasound from 04/10/[address] abdomen pelvis from 12/15/[address] of the lumbar spine from today HISTORY: Left flank pain FINDINGS: There is no acute intervening abnormality. Specifically there is no mesenteric inflammation, free ai r, free fluid or bowel wall thickening or Edema or obstruction or ileus. There are a few prominent l ymph nodes seen at the bairon hepatis unchanged. The appendix is normal There are no inflamed colonic diverticula. There is fecal stasis. The liver, spleen, pancreas,and adrenal glands show no acute abnormality. Again seen is a cirrhotic c ontour of the liver with hepatomegaly and splenomegaly. Lung bases are well-aerated. There is no hia angeles hernia. There has been prior cholecystectomy. There is no biliary or pancreatic ductal dilatation . There are no suspicious renal masses or large cysts and no hydronephrosis. There may be a very tiny p unctate nonobstructive calyceal stone in the interpolar region of the left kidney. Both ureters demon strate normal course and caliber. There is no filling defect in the urinary bladder. Urinary bladder is decompressed. There are no abdominal wall hernias. The aorta is normal with no aneurysm or calcific atherosclerosis . There are no acute osseous abnormalities. IMPRESSION: 1. Possible tiny nonobstructive calyceal stone in the interpolar region of the left kidney as descri bed. There is no hydronephrosis and are no ureteral stones. 2. Liver cirrhosis. 3. Prior cholecystectomy. 4. Other findings as above.
[2018-07-15] MEDS ORDERED: MORPHINE 2 MG/ML SYRINGE IM STA (11:42)
[2018-07-15] MEDS ORDERED: PHENERGAN 25 MG/ML VIAL IM STA (11:43)
--- NOTE | 2018-07-15 11:45 | ED.PDOC ---
General ED Provider: Dr. ROSARIO LOUIS-ER Chief Complaint: Back Pain Stated Complaint: my back hurts on the right side--i go to [facility] Time Seen by Physician: 09:55 Mode of Arrival: Walk-In Information Source: Patient Exam Limitations: No limitations Primary Care Provider: LILLIAM BROWN Nursing and Triage Documentation Reviewed and Agree: Yes Does patient meet sepsis criteria?: No System Inflammatory Response Syndrome: Not Applicable Sepsis Protocol: For patient's 13 years and over: Temp is 96.8 and below OR 101 and greater Pulse >90 BPM Resp >20/minute Acutely Altered Mental Status Are patient's symptoms suggestive of a new infection, such as: -Pneumonia -Skin, Soft Tissue -Endocarditis -UTI -Bone, Joint Infection -Implantable Device -Acute Abdominal Infection -Wound Infection -Meningitis -Blood Stream Catheter Infection -Unknown Musculoskeletal Complaint Exam - Back Pain Complaint/Exam Mechanism of Injury: Reports: No known trauma Onset/Duration: several days Symptoms Are: Still present Timing: Constant Initial Severity: Mild Current Severity: Moderate Location: Reports: Discrete Character: Reports: Dull, Aching, Spasmodic Aggravating: Reports: Movements, Lifting, Bending, Walking Associated Signs and Symptoms: Reports: Flank pain. Denies: Swelling, Redness, Bruising, Fever, Weakness, Numbness, Tingling, Abdominal pain, Bladder incontinence, Bowel incontinence, Weight loss, Pain with weight bearing Related History: Reports: Previous back injury Cauda Equina Risk Factors: Reports: None Epidural Abcess Risk Factors: Reports: None Related Surgical History: Reports: None Focal Tenderness: Yes Paraspinal Muscle Tenderness: No Paraspinal Muscle Spasm: No Scoliosis: No Lordosis: No Kyphosis: No SLR Test: Right Negative, Left Negative Hip Motion Testing Pain: Right Negative, Left Negative Focal Weakness: Present: None Focal Sensory Loss: Present: None Gait: Present: Abnormal Differential Diagnoses: Renal Colic, Other Review of Systems - Review Of Systems Constitutional: Reports: No symptoms Eyes: Reports: No symptoms Ears, Nose, Mouth, Throat: Reports: No symptoms Respiratory: Reports: No symptoms Cardiac: Reports: No symptoms GI: Reports: No symptoms : Reports: Flank pain Musculoskeletal: Reports: Back pain Skin: Reports: No symptoms Neurological: Reports: No symptoms Endocrine: Reports: No symptoms Hematologic/Lymphatic: Reports: No symptoms All Other Systems: Reviewed and Negative Past Medical History - Past Medical History Previously Healthy: No Endocrine: Reports: Hypothyroid Cardiovascular: Reports: None Respiratory: Reports: COPD Hematological: Reports: Anemia Gastrointestinal: Reports: GERD, Other (cirrhosis) Genitourinary: Reports: None Neuro/Psych: Reports: Depression Musculoskeletal: Reports: Back Pain Cancer: Reports: None Last Menstrual Period: NONE - Surgical History General Surgical History: Reports: Tubal ligation, Orthopedic - Family History Family History: Reports: None - Social History Smoking Status: Former smoker Hx Substance Use: No Alcohol Screening: None Physical Exam - Physical Exam Appearance: Well-appearing, No pain distress, Well-nourished Pain Distress: Moderate Eyes: SCOUT, EOMI, Conjunctiva clear ENT: Ears normal, Nose normal, Oropharynx normal Neck: Supple Respiratory: Airway patent, Breath sounds clear, Breath sounds equal, Respirations nonlabored Cardiovascular: RRR GI/: Soft, Nontender, No masses, Bowel sounds normal, No Organomegaly Musculoskeletal: Normal strength, ROM intact, No edema, No calf tenderness Skin: Warm, Dry, Normal color Neurological: Sensation intact, Motor intact, Reflexes intact, Cranial nerves intact, Alert, Oriented Psychiatric: Affect appropriate, Mood appropriate Interpretation - Radiology Interpretation Radiology Interpretation By: Radiologist Radiology Results: Positive Exam Interpreted: CT Scan Critical Care Note - Critical Care Note Total Time (mins): 0 Course - Course Hematology/Chemistry: 07/15/18 10:23 07/15/18 10:23 Orders, Labs, Meds: Lab Review 07/15/18 07/15/18 07/15/18 10:11 10:23 10:23 WBC 7.01 RBC 4.56 Hgb 14.0 Hct 40.4 MCV 88.6 MCH 30.7 MCHC 34.7 RDW Coeff of Juliana 12.8 Plt Count 179 Immature Gran % (Auto) 0.3 Neut % (Auto) 48.6 Lymph % (Auto) 43.4 Baxter % (Auto) 5.4 Eos % (Auto) 2.0 Baso % (Auto) 0.3 Immature Gran # (Auto) 0.0 Neut # (Auto) 3.4 Lymph # (Auto) 3.0 Baxter # (Auto) 0.4 Eos # (Auto) 0.1 Baso # (Auto) 0.0 ESR 65 H Sodium 134.7 Potassium 4.07 Chloride 100.5 Carbon Dioxide 26.6 Anion Gap 11.67 BUN 13.7 Creatinine 0.49 L Estimated GFR (MDRD) 134.00 BUN/Creatinine Ratio 27.95 Glucose 293.4 H Calcium 9.61 Total Bilirubin 0.71 AST 84.6 H ALT 62.0 H Alkaline Phosphatase 236.3 H Total Protein 8.55 H Albumin 4.36 Globulin 4.19 Albumin/Globulin Ratio 1.04 Urine Color Yellow Urine Clarity Slightly Urine pH 5.0 Ur Specific [place] >=1.030 Urine Protein 2+ Urine Glucose (UA) 2+ Urine Ketones Trace Urine Blood 2+ Urine Nitrite Negative Urine Bilirubin Negative Urine Urobilinogen 0.2 Ur Leukocyte Esterase Negative Urine Microscopic RBC 10-20 Urine Microscopic WBC 0-2 Ur Squamous Epith Cells 0-2 Ur Renal Epithelial Cell 0-2 Amorphous Sediment Trace Urine Bacteria 1+ Hyaline Casts 2-5 Urine Mucus 1+ Orders Category Date Time Status CBC W/ AUTO DIFF Stat LAB 07/15/18 10:23 Completed COMPREHENSIVE METABOLIC PANEL Stat LAB 07/15/18 10:23 Completed ESR Stat LAB 07/15/18 10:23 Completed URINALYSIS C & S IF INDICATED Stat LAB 07/15/18 10:11 Completed URINE CULTURE Stat LAB 07/15/18 10:20 Received Morphine Sulfate [Morphine 2 mg/ml Syringe] MEDS 07/15/18 11:42 Stat 4 mg IM ONCE STA Promethazine HCl [Phenergan 25 mg/ml Vial] MEDS 07/15/18 11:43 Stat 25 mg IM ONCE STA CT ABD/PEL WO RENAL STONE PROT Stat RADS 07/15/18 10:[address] LUMBAR SPINE W/O CONTRAST Stat RADS 07/15/18 10:07 Completed Vital Signs: Temp Pulse Resp BP Pulse Ox 07/15/18 09:52 98.5 F 93 H 20 139/97 H 97 Departure - Departure Time of Disposition: 11:46 Disposition: HOME SELF-CARE Discharge Problem: Flank pain Hematuria Qualifiers: Hematuria type: unspecified type Qualified Code(s): R31.9 - Hematuria, unspecified Instructions: Flank Pain (ED) Condition: Good Pt referred to PMD for follow-up: Yes IPMP verified?: No Additional Instructions: augmentin 875mg bid x 7 days0----keep f/u with dr brown this week--discuss seeing urology regarding blood in the urine Allergies/Adverse Reactions: Allergies dulaglutide [From [facility]] Adverse Reaction (Verified 07/15/18 09:57) hydrocodone bitartrate [From Lortab] Adverse Reaction (Verified 07/15/18 09:57) hydromorphone [From Dilaudid] Adverse Reaction (Verified 07/15/18 09:57) sumatriptan [From Imitrex] Adverse Reaction (Verified 07/15/18 09:57) sumatriptan succinate [From Imitrex] Adverse Reaction (Verified 07/15/18 09:57) CANT BREATHE, CHILLS nylon Adverse Reaction (Uncoded 03/16/17 17:17) Home Medications: Ambulatory Orders Oxycodone-Acetaminophen 10-325 [Percocet 10-325] 1 tab PO Q8H PRN 05/27/13 Atorvastatin Calcium 20 mg PO DAILY 07/05/16 Ondansetron HCl [Zofran Tab] 4 mg PO Q6-8H PRN #24 tablet 12/19/17 Ferrous Sulfate, Dried [Iron] 28 mg PO DAILY 02/08/18 Levothyroxine Sodium 0.088 mcg PO DAILY 02/08/18 Albuterol Sulfate 0.083% Neb [Albuterol 0.083% Neb] 1 vial NEB RTQ8H PRN [place]-3 Fatty Acids/Fish Oil [Fish Oil 1,000 mg Capsule] 1 each PO DAILY Vitamin E (Dl,Tocopheryl Acet) [Vitamin E] 100 unit PO DAILY 03/10/18 Atorvastatin Calcium 20 mg PO DAILY 04/04/18 Insulin Lispro [Admelog Solostar] 100 unit SQ DIRECTED PRN 04/19/18 Sennosides/Docusate Sodium [Docusate Sodium-Senna Tablet] 1 each PO DAILY Amitriptyline HCl 150 mg PO DAILY 07/15/18 Tizanidine HCl [Zanaflex] 4 mg PO TID 07/15/18 Disposition Discussed With: Patient
[2018-07-15] MEDS ORDERED: MORPHINE 4 MG/ML SYRINGE ONE (11:49)
== END 2018-07-15 12:22 | disposition home or self-care (01) ==
LOC: ED 09:52
DX: R10.9 Unspecified abdominal pain (principal); R31.9 Hematuria, unspecified; M54.9 Dorsalgia, unspecified; Z79.899 Other long term (current) drug therapy
CPT/HCPCS: 36415; 74176; 80053; 81001; 85025; 85651; 87086; 96372; 99283

== ENCOUNTER 2018-07-17 08:52 | Outpatient (CLI) ==
[2018-07-17 10:12] VITALS: BMI 36.5
== END 2018-07-17 08:53 | disposition home or self-care (01) ==
LOC: DIETCN 08:52
PROVIDERS: ATTEND Family Medicine
DX: E11.9 Type 2 diabetes mellitus without complications (principal); R73.9 Hyperglycemia, unspecified
CPT/HCPCS: 97802

== ENCOUNTER 2018-07-20 10:19 | Outpatient (CLI) | END 2018-07-20 10:20 | disposition home or self-care (01) | LOC: RHC-LAB 10:19 → FCC-LAB 10:20 | PROVIDERS: ATTEND Family Medicine | DX: K74.60 Unspecified cirrhosis of liver (principal) ==

== ENCOUNTER 2018-07-23 10:02 | Outpatient (CLI) ==
--- NOTE | 2018-07-23 17:32 | MAMMO ---
EXAM: Right breast diagnostic mammogram and ultrasound HISTORY: 6-month follow-up COMPARISON: 01/15/2018 FINDINGS: Mammogram: Spot compression CC and MLO views right breast were performed. Tomosynthesis was perform ed. There is a 6 mm mass in the right breast lower outer quadrant that appears slightly increased in size from prior examination. Ultrasound: Ultrasound right breast was performed in the region of mammographic finding. In this re gion, there is a 3 x 2 x 5 mm hypoechoic mass without internal vascularity somewhat difficult to visu burton and with slightly indistinct margins. I evaluated this mass on real time examination and it wa s indeterminate if the mass was solid or cystic.) IMPRESSION: Right breast mass. Tissue sampling is recommended. This mass would be amendable to ult rasound-guided biopsy. BIRADS category 4, suspicious
== END 2018-07-23 10:03 | disposition home or self-care (01) ==
LOC: RAD 10:02
PROVIDERS: ATTEND Family Medicine
DX: R92.8 Other abnormal and inconclusive findings on diagnostic imaging of breast (principal)

== ENCOUNTER 2018-09-21 14:21 | Emergency (ER) ==
[2018-09-21 14:26] VITALS: BP 154/91; TEMP 99.1; BMI 36.6
--- NOTE | 2018-09-21 16:03 | ED.PDOC ---
General ED Provider: Dr. YAYO FORMAN Chief Complaint: Respiratory Complaint Stated Complaint: Nasal congestio,sore throat,cough,feeling ill Time Seen by Physician: 14:35 Mode of Arrival: Walk-In Information Source: Patient Exam Limitations: No limitations Primary Care Provider: LILLIAM GARCIA Nursing and Triage Documentation Reviewed and Agree: Yes Does patient meet sepsis criteria?: No System Inflammatory Response Syndrome: Not Applicable Sepsis Protocol: For patient's 13 years and over: Temp is 96.8 and below OR 101 and greater Pulse >90 BPM Resp >20/minute Acutely Altered Mental Status Are patient's symptoms suggestive of a new infection, such as: -Pneumonia -Skin, Soft Tissue -Endocarditis -UTI -Bone, Joint Infection -Implantable Device -Acute Abdominal Infection -Wound Infection -Meningitis -Blood Stream Catheter Infection -Unknown Respiratory Complaint Exam - Respiratory Complaint/Exam Onset/Duration: FEW DAYS Symptoms Are: Still present Timing: Constant Initial Severity: Moderate Current Severity: Moderate Location: Nose, Throat Character: Reports: Non-productive cough Aggravating: Reports: Weather Alleviating: Reports: Antibiotics Associated Signs and Symptoms: Reports: Chills, Wheezing, Nasal congestion, Sinus discomfort Related History: Reports: Similar episode Related Surgical History: Reports: None Pulmonary Embolism Risk Factors: None Cardiac Risk Factors: Reports: Hypertension Pseudomonas Risk Factors: Reports: None Tuberculosis Risk Factors: Reports: None Status Asthmaticus Risk Factors: Reports: None Home Oxygen Use: No Recent Stress Test: No Recent Echo/LV Function: No Current Antibiotic Use: Yes Current Asthma Medication Use: No Respiratory Distress: None Inadequate Respiratory Effort: No Dysphagia Present: No Stridor Present: No JVD Present: No Accessory Muscle Use: No Retractions: Not Present Diminished Breath Sounds: No Sinus Tenderness: None Grunting Respirations: No Kussmaul Respirations: No Differential Diagnoses: Asthma, COPD Exacerbation, Pneumonia, Bronchitis, Influenza Review of Systems - Review Of Systems Constitutional: Reports: Chills Eyes: Reports: No symptoms Ears, Nose, Mouth, Throat: Reports: Nose discharge, Throat pain Respiratory: Reports: Cough, Wheezing Cardiac: Reports: No symptoms GI: Reports: No symptoms : Reports: No symptoms Musculoskeletal: Reports: No symptoms Skin: Reports: No symptoms Neurological: Reports: No symptoms Endocrine: Reports: No symptoms Hematologic/Lymphatic: Reports: No symptoms All Other Systems: Reviewed and Negative Past Medical History - Past Medical History Previously Healthy: No Endocrine: Reports: Hypothyroid Cardiovascular: Reports: None Respiratory: Reports: COPD Hematological: Reports: Anemia Gastrointestinal: Reports: GERD, Other Genitourinary: Reports: None Neuro/Psych: Reports: Depression Musculoskeletal: Reports: Back Pain Cancer: Reports: None Last Menstrual Period: n/a - Surgical History General Surgical History: Reports: Tubal ligation, Orthopedic - Family History Family History: Reports: None - Social History Smoking Status: Former smoker Hx Substance Use: No Alcohol Screening: None Physical Exam - Physical Exam Appearance: Ill-appearing Ill-appearing: Mild Pain Distress: Mild Eyes: SCOUT ENT: Ears normal Neck: Supple Respiratory: Airway patent, Respirations nonlabored Cardiovascular: RRR GI/: Soft, Nontender Musculoskeletal: Normal strength Skin: Warm Neurological: Sensation intact Critical Care Note - Critical Care Note Total Time (mins): 0 Course - Course Hematology/Chemistry: 09/21/18 16:25 09/21/18 16:25 Orders, Labs, Meds: Lab Review 09/21/18 09/21/18 09/21/18 16:25 16:25 16:30 WBC 6.23 RBC 4.16 L Hgb 12.5 Hct 37.7 MCV 90.6 MCH 30.0 MCHC 33.2 RDW Coeff of Juliana 12.4 Plt Count 151 Immature Gran % (Auto) 0.2 Neut % (Auto) 50.9 Lymph % (Auto) 39.0 [place] % (Auto) 7.4 Eos % (Auto) 2.2 Baso % (Auto) 0.3 Immature Gran # (Auto) 0.0 Neut # (Auto) 3.2 Lymph # (Auto) 2.4 Gilliam # (Auto) 0.5 Eos # (Auto) 0.1 Baso # (Auto) 0.0 Sodium 138.6 Potassium 3.85 Chloride 103.1 Carbon Dioxide 25.4 Anion Gap 13.95 BUN 12.3 Creatinine 0.50 L Estimated GFR (MDRD) 131.00 BUN/Creatinine Ratio 24.60 Glucose 225.6 H Calcium 9.21 Total Bilirubin 0.55 AST 96.3 H ALT 70.3 H Alkaline Phosphatase 233.6 H Total Protein 7.84 Albumin 4.06 Globulin 3.78 Albumin/Globulin Ratio 1.07 Influ A Molecular Assay Negative by naat Influ B Molecular Assay Negative by naat Orders Category Date Time Status CBC W/ AUTO DIFF Stat LAB 09/21/18 16:25 Completed COMPREHENSIVE METABOLIC PANEL Stat LAB 09/21/18 16:25 Completed FLU A & B MOLECULAR [FLU A/B MOLECULAR] Stat LAB 09/21/18 16:30 Completed MOLECULAR GROUP A STREP Stat LAB 09/21/18 16:30 Completed CHEST, 2 VIEWS PA & LAT Stat RADS 09/21/18 16:11 Completed Vital Signs: Temp Pulse Resp BP Pulse Ox 09/21/18 14:22 99.1 F 83 20 154/91 H 96 Departure - Departure Time of Disposition: 17:43 Disposition: HOME SELF-CARE Discharge Problem: Viral syndrome Instructions: Viral Syndrome (ED) Condition: Good Pt referred to PMD for follow-up: Yes IPMP verified?: Yes Additional Instructions: sCRIPT FOR nASALIDE BID AND rOBITUSSIN COUGH CONTROL BID. Allergies/Adverse Reactions: Allergies dulaglutide [From [facility]ulicity] Adverse Reaction (Verified 09/21/18 14:26) hydrocodone bitartrate [From Lortab] Adverse Reaction (Verified 09/21/18 14:26) hydromorphone [From Dilaudid] Adverse Reaction (Verified 09/21/18 14:26) sumatriptan [From Imitrex] Adverse Reaction (Verified 09/21/18 14:26) sumatriptan succinate [From Imitrex] Adverse Reaction (Verified 09/21/18 14:26) CANT BREATHE, CHILLS nylon Adverse Reaction (Uncoded 03/16/17 17:17) Home Medications: Ambulatory Orders Oxycodone-Acetaminophen 10-325 [Percocet 10-325] 1 tab PO Q8H PRN 05/27/13 Atorvastatin Calcium 20 mg PO DAILY 07/05/16 Ondansetron HCl [Zofran Tab] 4 mg PO Q6-8H PRN #24 tablet 12/19/17 Ferrous Sulfate, Dried [Iron] 28 mg PO DAILY 02/08/18 Levothyroxine Sodium 0.088 mcg PO DAILY 02/08/18 Albuterol Sulfate 0.083% Neb [Albuterol 0.083% Neb] 1 vial NEB RTQ8H PRN [place]-3 Fatty Acids/Fish Oil [Fish Oil 1,000 mg Capsule] 1 each PO DAILY Vitamin E (Dl,Tocopheryl Acet) [Vitamin E] 100 unit PO DAILY 03/10/18 Amitriptyline HCl 150 mg PO DAILY 07/15/18 Tizanidine HCl [Zanaflex] 4 mg PO TID 07/15/18 Carvedilol 6.25 mg PO BID 09/21/18 Insulin Glargine,Hum.rec.anlog [Mannyaglalee Sin U-100] 65 unit SQ DAILY Disposition Discussed With: Patient, Family
--- NOTE | 2018-09-21 16:49 | DI ---
EXAM: Two views of the chest. History: Short of breath Comparison: Chest radiograph 03/31/2016 Findings: Heart size is within normal limits. No focal consolidation. No appreciable pleural fluid and no pneumothorax. No acute osseous abnormalities. Impression: No acute cardiopulmonary process.
== END 2018-09-21 18:17 | disposition home or self-care (01) ==
LOC: ED 14:21
DX: B34.9 Viral infection, unspecified (principal); I10 Essential (primary) hypertension; E03.9 Hypothyroidism, unspecified; M54.9 Dorsalgia, unspecified; Z79.899 Other long term (current) drug therapy
CPT/HCPCS: 36415; 80053; 85025; 87502; 87651; 99283

== ENCOUNTER 2018-09-28 12:57 | Outpatient (CLI) ==
--- NOTE | 2018-09-28 14:03 | DI ---
Exam: Cervical spine three-view. HISTORY: Disc degeneration. Findings: Three images of the cervical spine demonstrate an intentional this patient. There is mult ilevel mild to moderate degenerative disease greatest at C6-7 with no compression fracture or listhes is. The odontoid process appears intact and normally centered. Prevertebral soft tissues appear wit hin normal limits. Impressions: Multilevel mild to moderate degenerative disease in the cervical spine greatest at C6-7 . No compression fracture or listhesis.
--- NOTE | 2018-09-28 14:08 | DI ---
Exam: Lumbar spine three-view. HISTORY: Disc degeneration. Comparison: 02/23/2018 Findings: Three images of the lumbar spine demonstrate five [id number], lumbarized vertebrae wi th moderate disc space narrowing and facet arthropathy at L5 S1. There is otherwise multilevel mild degenerative disease in the lumbar spine. There is no compression fracture or listhesis. No osseous erosion. Surgical clips are again noted in the right upper abdomen. The bowel gas pattern is nonsp ecific. Impressions: Moderate degenerative disease at L5-S1. Mild degenerative disease throughout the remai nder of the lumbar spine. No compression fracture or listhesis.
--- NOTE | 2018-09-28 15:41 | MRI ---
EXAM: MRI lumbar spine without IV contrast. DATE: 28 September 2018. HISTORY: Disc degeneration. Low back pain. Pain and numbness in both lower extremities. TECHNIQUE: Sagittal and axial T1W and T2W sequences of the lumbar spine along with sagittal IR and c oronal T2W sequences were obtained using 1.2 Denise magnet. No IV contrast. COMPARISON: LS spine series [address] L-spine 07/15/2018. CT abdomen/pelvis 07/15/2018. FINDINGS: There are five [id number]-[id number] lumbar vertebra. Minimal (2 degrees) leftward curvature of the lumbar spine is evident. A 4 mm retrolisthesis of L5 relative to S1 is observed. No other subl uxation, acute fracture, osseous malignancy, or pars interarticularis defect is demonstrated. Lumbar vertebrae normal in height. Bone marrow signal is normal. Small anterior osteophytes, disc desicca tion, and mild disc space narrowing are detected at T11-12. Minor anterior osteophytes, disc desicca tion, degenerative endplate changes, and marked disc space narrowing are present at L5-S1. Remaining intervertebral discs are normal in height. No acute sacral fracture or stress reaction is evident. SI joints are unremarkable. Conus medullaris terminates at L2. Visible spinal cord reveals no syri nx, cord edema, myelomalacia, or neoplasm. Although there are small retroperitoneal lymph nodes present, no definitive lymphadenopathy is presen t. No paraspinal mass or aortic aneurysm is seen. Paraspinal musculature is symmetric bilaterally. Visible portions of the liver, adrenal glands, and left kidney reveal no abnormality. A T2W bright, T1W dark, 11 mm focus at the medial cortex upper pole left right kidney corresponds with a water den sity (HU = -5) focus on recent CT scan. Spleen is approximately 14.4 cm in length, without distinct focal mass. No bowel obstruction or malignancy is apparent. Segmental analysis: T11-12: Midline to left paracentral disc protrusion (2.6 mm AP x 9 mm transverse) mildly flattens th e left anterolateral margin the cord. Canal is 7.4 mm AP. Minor right foraminal narrowing is due to uncinate hypertrophy. T12-L1: Normal. L1-2: Normal. L2-3: No disc protrusion or central stenosis. Minor left foraminal narrowing is due to minor left f acet arthropathy. L3-4: Minimal retrolisthesis of L3, minor concentric disc bulge, and minor facet arthropathy cause m ild/moderate right and moderate left foraminal stenoses. Left L3 nerve root contacts the disc bulge near the lateral margin of the foramen. No central canal stenosis. L4-5: Minor concentric disc bulge, mild/moderate right facet arthropathy, mild left facet arthropath y, and mild ligamentum flavum hypertrophy cause triangulation of the canal and moderate bilateral for aminal stenoses. Each L4 nerve root touches disc bulge near the lateral margin of the foramen, but i s not displaced L5-S1: Mild retrolisthesis of L5, small concentric disc bulge, moderate/large posterior disc bulge ( extending behind the S1 superior endplate approximately 4.2 mm) and minor facet disease cause mild/mo derate right and marked left foraminal stenoses. Left L5 nerve root contacts disc bulge near the lat eral margin of the foramen. No central canal stenosis.. IMPRESSIONS: 1. Lumbar spine minor/mild facet arthropathy at the level DDD (especially L5-S1). 2. Multilevel lumbar foraminal stenoses. Left L3, both L4, and left L5 nerve roots contact disc bul ges/osteophytes in the foramen. 3. Moderate T11-12 and minor L4-5 central canal stenoses. 4. Right kidney small, exophytic cortical cyst (11 mm). 5. Hepatosplenomegaly - etiology uncertain.
== END 2018-09-28 12:58 | disposition home or self-care (01) ==
LOC: RAD 12:57
PROVIDERS: ATTEND Pain Medicine Interventional Pain Medicine
DX: M51.16 Intervertebral disc disorders with radiculopathy, lumbar region (principal); M51.17 Intervertebral disc disorders with radiculopathy, lumbosacral region; M51.36 Other intervertebral disc degeneration, lumbar region; M51.37 Other intervertebral disc degeneration, lumbosacral region; M47.816 Spondylosis without myelopathy or radiculopathy, lumbar region; M47.817 Spondylosis without myelopathy or radiculopathy, lumbosacral region; M48.02 Spinal stenosis, cervical region; M50.31 Other cervical disc degeneration, high cervical region; M50.320 Other cervical disc degeneration, mid-cervical region, unspecified level; M50.33 Other cervical disc degeneration, cervicothoracic region; M47.812 Spondylosis without myelopathy or radiculopathy, cervical region; M47.813 Spondylosis without myelopathy or radiculopathy, cervicothoracic region; M47.12 Other spondylosis with myelopathy, cervical region

== ENCOUNTER 2018-10-04 09:44 | Outpatient (CLI) ==
--- NOTE | 2018-10-05 11:14 | MRI ---
Examination: MRI of the cervical spine without contrast 10/04/2018 Clinical information: Cervical spinal stenosis, degeneration, arthropathy. Neck pain radiates into the arms. Comparison: Cervical spine radiographs 09/28/2018. TECHNIQUE: Sagittal and axial T1 and T2W imaging, sagittal STIR, coronal T2 and axial T2 gradient ec ho sequences were performed. FINDINGS: Examination limited by poor signal to noise due to patient body habitus and motion. Subop timal evaluation of the marrow on the T1 sagittal sequence. The craniocervical junction is unremarka ble. The cervical spinal cord is grossly normal in size and morphology. The cervical vertebrae are normal in height and AP alignment. Moderate loss of disc height at C5-6 with ventral spondylosis. S evere loss of disc height at C6-C7 with discogenic endplate irregularity and ventral spondylosis. Th ere is no abnormal marrow edema. No paravertebral edema is seen. At the C4-C5 level, there is mild right neural foraminal stenosis due to uncovertebral hypertrophy. At the C5-6 level, there is a lobular post disc/osteophyte complex eccentric right which indents the right tali cord causing mild-moderate central spinal canal stenosis and asymmetric right lateral rece ss stenosis. There is severe right and mild left foraminal stenosis due to endplate osteophyte and u ncovertebral hypertrophy. At the C6-C7 level, there is a broad-based posterior disc/osteophyte complex which indents the cord c ausing mild-moderate central spinal canal stenosis. There is severe right neural foraminal stenosis due to endplate osteophyte and uncovertebral hypertrophy. At the C7-T1 level, there is modest bilateral hypertrophic facet arthropathy. Impression: 1. Mild-moderate C5-6 and C6-C7 central spinal canal stenosis secondary to posterior disc/osteophyte complexes eccentric right which deform the cord. Asymmetric right C5-6 and C6-C7 lateral recess misael nosis. 2. Mild right C4-C5, severe right C5-6, mild left C5-6 and severe right C6-C7 foraminal stenosis. 3. Patient motion degraded study.
== END 2018-10-04 09:45 | disposition home or self-care (01) ==
LOC: RAD 09:44
PROVIDERS: ATTEND Pain Medicine Interventional Pain Medicine
DX: M51.16 Intervertebral disc disorders with radiculopathy, lumbar region (principal); M51.17 Intervertebral disc disorders with radiculopathy, lumbosacral region; M51.36 Other intervertebral disc degeneration, lumbar region; M51.37 Other intervertebral disc degeneration, lumbosacral region; M47.816 Spondylosis without myelopathy or radiculopathy, lumbar region; M47.817 Spondylosis without myelopathy or radiculopathy, lumbosacral region; M48.02 Spinal stenosis, cervical region; M50.31 Other cervical disc degeneration, high cervical region; M50.320 Other cervical disc degeneration, mid-cervical region, unspecified level; M50.33 Other cervical disc degeneration, cervicothoracic region; M47.812 Spondylosis without myelopathy or radiculopathy, cervical region; M47.813 Spondylosis without myelopathy or radiculopathy, cervicothoracic region; M47.12 Other spondylosis with myelopathy, cervical region

== ENCOUNTER 2018-10-11 09:35 | Outpatient (CLI) | END 2018-10-11 09:36 | disposition home or self-care (01) | LOC: RHC-LAB 09:35 → FCC-LAB 09:36 | PROVIDERS: ATTEND Family Medicine | DX: E11.9 Type 2 diabetes mellitus without complications (principal); E03.9 Hypothyroidism, unspecified; E78.5 Hyperlipidemia, unspecified | CPT/HCPCS: 36415; 80053; 80061; 83037; 84443; 85025 ==

== ENCOUNTER 2018-10-31 09:20 | Outpatient (CLI) | END 2018-10-31 09:21 | disposition home or self-care (01) | LOC: RHC-LAB 09:20 → FCC-LAB 09:21 | PROVIDERS: ATTEND Family Medicine | DX: R74.0 Nonspecific elevation of levels of transaminase and lactic acid dehydrogenase [LDH] (principal); R74.8 Abnormal levels of other serum enzymes | CPT/HCPCS: 36415; 80053; 82977; 83516; 84075; 84080 ==

== ENCOUNTER 2018-12-30 09:42 | Emergency (ER) ==
[2018-12-30 09:49] VITALS: BP 135/87; TEMP 98.1; BMI 35.9
--- NOTE | 2018-12-30 10:08 | ED.PDOC ---
General ED Provider: Dr. ROSARIO CORRIGAN MD Chief Complaint: Abdominal Pain Stated Complaint: epigastric pain Time Seen by Physician: 09:55 Mode of Arrival: Walk-In Information Source: Patient Exam Limitations: No limitations Primary Care Provider: LILLIAM GARCIA Nursing and Triage Documentation Reviewed and Agree: Yes Does patient meet sepsis criteria?: No If yes, has appropriate treatment been initiated?: Yes System Inflammatory Response Syndrome: Not Applicable (just had EGD and colonsocopy) Sepsis Protocol: For patient's 13 years and over: Temp is 96.8 and below OR 101 and greater Pulse >90 BPM Resp >20/minute Acutely Altered Mental Status Are patient's symptoms suggestive of a new infection, such as: -Pneumonia -Skin, Soft Tissue -Endocarditis -UTI -Bone, Joint Infection -Implantable Device -Acute Abdominal Infection -Wound Infection -Meningitis -Blood Stream Catheter Infection -Unknown Review of Systems - Review Of Systems Constitutional: Reports: No symptoms Eyes: Reports: No symptoms Ears, Nose, Mouth, Throat: Reports: No symptoms Respiratory: Reports: No symptoms Cardiac: Reports: No symptoms GI: Reports: Abdominal pain : Reports: No symptoms Musculoskeletal: Reports: No symptoms Skin: Reports: No symptoms Neurological: Reports: No symptoms Endocrine: Reports: No symptoms Hematologic/Lymphatic: Reports: No symptoms All Other Systems: Reviewed and Negative Past Medical History - Past Medical History Previously Healthy: No Endocrine: Reports: Hypothyroid Cardiovascular: Reports: None Respiratory: Reports: COPD Hematological: Reports: Anemia Gastrointestinal: Reports: GERD, Other Genitourinary: Reports: None Neuro/Psych: Reports: Depression Musculoskeletal: Reports: Back Pain Cancer: Reports: None Last Menstrual Period: hysterectomy - Surgical History General Surgical History: Reports: Tubal ligation, Orthopedic - Family History Family History: Reports: None - Social History Smoking Status: Former smoker Hx Substance Use: No Alcohol Screening: None Physical Exam - Physical Exam Appearance: Obese Pain Distress: Mild GI/: Soft, Tender (only in epigastric area) Critical Care Note - Critical Care Note Total Time (mins): 0 Course - Course Hematology/Chemistry: 12/30/18 10:23 12/30/18 10:23 Orders, Labs, Meds: Lab Review 12/30/18 12/30/18 12/30/18 10:10 10:23 10:23 WBC 6.91 RBC 4.35 Hgb 13.4 Hct 40.2 MCV 92.4 MCH 30.8 MCHC 33.3 RDW Coeff of Juliana 13.0 Plt Count 181 Immature Gran % (Auto) 0.3 Neut % (Auto) 55.1 Lymph % (Auto) 36.2 [place] % (Auto) 6.4 Eos % (Auto) 1.4 Baso % (Auto) 0.6 Immature Gran # (Auto) 0.0 Neut # (Auto) 3.8 Lymph # (Auto) 2.5 [place] # (Auto) 0.4 Eos # (Auto) 0.1 Baso # (Auto) 0.0 Sodium 139.0 Potassium 4.10 Chloride 102.0 Carbon Dioxide 26.0 Anion Gap 15.10 BUN 11.0 Creatinine 0.50 L Estimated GFR (MDRD) 130.00 BUN/Creatinine Ratio 22.00 Glucose 334.0 H Calcium 9.30 Total Bilirubin 0.60 AST 114.0 H ALT 54.0 H Alkaline Phosphatase 207.0 H Total Protein 8.60 H Albumin 4.10 Globulin 4.50 Albumin/Globulin Ratio 0.91 Urine Color Yellow Urine Clarity Clear Urine pH 5.0 Ur Specific [place] 1.020 Urine Protein 2+ Urine Glucose (UA) 2+ Urine Ketones Negative Urine Blood Trace-intact Urine Nitrite Negative Urine Bilirubin Negative Urine Urobilinogen 0.2 Ur Leukocyte Esterase Negative Urine Microscopic RBC 0-2 Urine Microscopic WBC 0-2 Ur Squamous Epith Cells 2-5 Urine Bacteria Trace Orders Category Date Time Status CBC W/ AUTO DIFF Stat LAB 12/30/18 10:23 Completed CMP [COMPREHENSIVE METABOLIC PANEL] Stat LAB 12/30/18 10:23 Completed UA [URINALYSIS C & S IF INDICATED] Stat LAB 12/30/18 10:10 Completed Mag-Al Plus//Lidocaine [Gi Cocktail] MEDS 12/30/18 10:12 Discontinued 30 ml PO ONCE STA Simethicone [Mylicon] MEDS 12/30/18 10:58 Discontinued 320 mg PO ONCE STA KUB [ABDOMEN 1 VIEW] Stat RADS 12/30/18 10:12 Completed Medications Discontinued Medications Generic Name Dose Route Start Last Admin Trade Name Freq PRN Reason Stop Dose Admin Al Hydroxide/Mg Hydroxide 30 ml 12/30/18 10:12 12/30/18 10:31 Gi Cocktail PO 12/30/18 10:13 30 ml ONCE STA Administration Simethicone 320 mg 12/30/18 10:58 12/30/18 11:23 Mylicon PO 12/30/18 10:59 320 mg ONCE STA Administration Vital Signs: Temp Pulse Resp BP Pulse Ox 12/30/18 09:42 98.1 F 90 20 135/87 95 Departure - Departure Time of Disposition: 12:00 Disposition: HOME SELF-CARE Discharge Problem: Epigastric abdominal pain Instructions: Epigastric Pain (ED) Condition: Good Pt referred to PMD for follow-up: Yes IPMP verified?: No Additional Instructions: F/U with PCP Allergies/Adverse Reactions: Allergies dulaglutide [From Trulicity] Adverse Reaction (Verified 12/30/18 09:51) hydrocodone bitartrate [From Lortab] Adverse Reaction (Verified 12/30/18 09:51) hydromorphone [From Dilaudid] Adverse Reaction (Verified 12/30/18 09:51) sumatriptan [From Imitrex] Adverse Reaction (Verified 12/30/18 09:51) sumatriptan succinate [From Imitrex] Adverse Reaction (Verified 12/30/18 09:51) CANT BREATHE, CHILLS nylon Adverse Reaction (Uncoded 12/30/18 09:52) Home Medications: Ambulatory Orders Oxycodone-Acetaminophen 10-325 [Percocet 10-325] 1 tab PO Q8H PRN 05/27/13 Atorvastatin Calcium 20 mg PO DAILY 07/05/16 Ferrous Sulfate, Dried [Iron] 28 mg PO DAILY 02/08/18 Levothyroxine Sodium 0.088 mcg PO DAILY 02/08/18 Mullan-3 Fatty Acids/Fish Oil [Fish Oil 1,000 mg Capsule] 1 each PO DAILY Vitamin E (Dl,Tocopheryl Acet) [Vitamin E] 100 unit PO DAILY 03/10/18 Amitriptyline HCl 150 mg PO DAILY 07/15/18 Tizanidine HCl [Zanaflex] 4 mg PO TID 07/15/18 Carvedilol 6.25 mg PO BID 09/21/18 Insulin Glargine,Hum.rec.anlog [Basaglar Kwikpen U-100] 65 unit SQ DAILY Dicyclomine HCl 10 mg PO TID 12/30/18 Fluticasone Propionate [Flonase] 2 spray NS DAILY 12/30/18 Transfer Form Completed: No Disposition Discussed With: Patient
[2018-12-30] MEDS: GI COCKTAIL PO STA (10:31)
--- NOTE | 2018-12-30 10:32 | DI ---
Exam: Single view of the abdomen. Comparison: Ultrasound abdomen performed 04/10/2018. Reason for exam: Epigastric pain. FINDINGS: The bowel gas pattern is nonspecific and nonobstructive. Moderate stool burden is seen th roughout the colon. Operative changes in the right upper quadrant presumably from gallbladder remova l. Impression: Nonspecific, nonobstructive bowel gas pattern with a moderate stool burden
[2018-12-30] MEDS: MYLICON PO STA (11:23)
== END 2018-12-30 12:04 | disposition home or self-care (01) ==
LOC: ED 09:42
DX: R10.13 Epigastric pain (principal); Z79.899 Other long term (current) drug therapy
CPT/HCPCS: 36415; 80053; 81001; 85025; 99283

== ENCOUNTER 2020-06-13 21:58 | Observation (INO) ==
[2020-06-13] MEDS ORDERED: TYLENOL PO STA (22:14)
[2020-06-13] MEDS ORDERED: VENTOLIN HFA (PER PUFF-WITH SPACER) IH STA (22:19)
[2020-06-13] MEDS ORDERED: SODIUM CHLORIDE 1,000 ML IV STA ×2 (22:19→22:38)
[2020-06-13 22:48] LABS: ABG BASE EXCESS 0.9 (-2.0-2.0); ABG HCO3 23.9 (22.0-26.0); ABG PH 7.51 (7.35-7.45); ABG TCO2 24.8 (22.0-28.0)
[2020-06-13 22:49] LABS: ABG OXYGEN SATURATION 95.6 % (95-100)
[2020-06-13] MEDS ORDERED: ZOSYN 4.5 GM 4.5 GM in SODIUM CHLORIDE 100 ML IV STA (22:49)
[2020-06-13] MEDS ORDERED: VANCOMYCIN 2 GM in SODIUM CHLORIDE 500 ML IV STA (22:56)
--- NOTE | 2020-06-13 23:03 | ED.PDOC ---
General ED Provider: Dr. SANCHEZ SKY Chief Complaint: Fever Stated Complaint: fever /aches /short of breath /diarrhea /vomiting Time Seen by Physician: 21:58 Mode of Arrival: Ambulance Information Source: Patient Exam Limitations: No limitations Primary Care Provider: LILLIAM GARCIA MD Nursing and Triage Documentation Reviewed and Agree: Yes Does patient meet sepsis criteria?: Yes If yes, has appropriate treatment been initiated?: Yes System Inflammatory Response Syndrome: Temp 101F or Greater and Pulse >90 BPM Sepsis Protocol: For patient's 13 years and over: Temp is 96.8 and below OR 101 and greater Pulse >90 BPM Resp >20/minute Acutely Altered Mental Status Are patient's symptoms suggestive of a new infection, such as: -Pneumonia -Skin, Soft Tissue -Endocarditis -UTI -Bone, Joint Infection -Implantable Device -Acute Abdominal Infection -Wound Infection -Meningitis -Blood Stream Catheter Infection -Unknown Respiratory Complaint Exam Respiratory Complaint/Exam Symptoms Are: Still present Timing: Constant Initial Severity: Mild Current Severity: Mild Location: Chest Character: Reports Non-productive cough Associated Signs and Symptoms: Reports Dyspnea, Fever, Dizziness and Vomiting; Denies Chills, Chest pain, Pleuritic chest pain, Wheezing, Hemoptysis, Calf pain, Calf swelling, Edema and Hoarseness History of Healthcare-Acquired Pneumonia: No Related Surgical History: Reports None Pulmonary Embolism Risk Factors: None Cardiac Risk Factors: Reports None Pseudomonas Risk Factors: Reports None Tuberculosis Risk Factors: Reports None Status Asthmaticus Risk Factors: Reports None Home Oxygen Use: No Recent Stress Test: No Current Antibiotic Use: No Current Asthma Medication Use: No Respiratory Distress: None Inadequate Respiratory Effort: No Dysphagia Present: No Stridor Present: No JVD Present: No Accessory Muscle Use: No Retractions: Not Present Diminished Breath Sounds: No Sinus Tenderness: None Grunting Respirations: No Kussmaul Respirations: No Differential Diagnoses: Pneumonia, SARS, Influenza and Lower Resp. Infection Quality Indicators For Pneumonia: Antibiotics in 6hr-admit Review of Systems Review Of Systems Constitutional: Reports Fever and Malaise Eyes: Reports No symptoms Ears, Nose, Mouth, Throat: Reports No symptoms Respiratory: Reports Cough and Short of air Cardiac: Reports Lightheadedness GI: Reports Nausea and Vomiting : Reports No symptoms Musculoskeletal: Reports Muscle pain Skin: Reports No symptoms Neurological: Reports No symptoms Endocrine: Reports No symptoms Hematologic/Lymphatic: Reports No symptoms All Other Systems: Reviewed and Negative [facility] Medical History Anemia Anxiety Arthritis Cholecystectomy planned Cirrhosis of liver not due to alcohol Depression Diabetes mellitus Hepatitis C Leukocytosis Sleep apnea Family History Mother Diabetes FATHER Diabetes Hypertension Grandfather/Grandmother No problems noted. Other Cancer Parkinsons disease Social History Smoking and tobacco status: Former smoker Tobacco: How many years used: 30 Passive smoking exposure: No How long ago did patient quit smokin years ago Quit status: quit date established Second hand smoke exposure: No Smoking risk assessment performed: No Alcohol intake: never Counseling given: No Substance use type: does not use Counseling given: No Counseling provided: none Leslie/nondenominational: OTHER Special leslie needs: No Agree to transfusion: Yes Adopted: No Caregiver/support person: No Foster care: No Household members: family and children Housing: house Marital status: D Lives independently: Yes Daycare: no daycare Number of children: 3 Number of grandchildren: 5 Highest education level completed: some college, no degree Financial difficulty paying for basics: somewhat hard service: No senior care: No Current occupational status: unemployed Current occupational exposures/hazards: No Pets and animals: Yes Leisure activites: clubs, art and fishing History of recent travel: No Sexually active: No Do you think of yourself as: straight/heterosexual Current gender identity: female Seatbelt use: always Helmet use: No Drives intoxicated or rides with intoxicated after school driver: No Current diet type/program: regular Well-balanced diet: about half the time Caffeine: Yes Eating out: rarely or never Reads food labels: usually or always During the past year weight has: remained stable Water heater temperature set < 120 degrees: No Working smoke detector in home: Yes Fire extinguisher in home: Yes Carbon monoxide detector in home: Yes Firearms in home: No What type of physical activity do you participate in?: walking Physical activity functional status: independent ambulation How many days of moderate to strenuous exercise, like a brisk walk, did you do in the last 7 days: 0 Surgical History breast ultrasound (08/27/18) EGD with Biopsy (11/28/18) History of carpal tunnel surgery History of ear, nose, and throat (ENT) surgery (~10/2016) History of musculoskeletal system surgery History of tubal ligation Status post cholecystectomy Status post hysterectomy (01/30/17) Tubal ligation status Female Reproductive History Menstrual Age of Menarche: 15 Hx Hysterectomy: Yes Hx Tubal Ligation: Yes Physical Exam Physical Exam Appearance: Reports Ill-appearing Ill-appearing: Mild Pain Distress: Mild Eyes: Reports SCOUT, EOMI and Conjunctiva clear ENT: Reports Ears normal Neck: Supple Respiratory: Reports Airway patent and Breath sounds clear Cardiovascular: Reports Tachycardia GI/: Reports Soft and Nontender Musculoskeletal: Reports Normal strength and No edema Skin: Reports Warm, Dry and Normal color Neurological: Reports Sensation intact and Motor intact Psychiatric: Reports Affect appropriate Interpretation Radiology Interpretation Radiology Interpretation By: ED Physician Radiology Results: No acute changes Exam Interpreted: CXR Xray Comments: my wet read 2301 hrs Radiology Interpretation By: Radiologist Radiology Results: Positive Exam Interpreted: CXR and Portable CXR Xray Comments: atelectasis vs pneumonia LLL EKG Interpretation Time of EKG #1: 22:03 Rate: Tachy Rhythm: Sinus Ectopy: None [place]: NL ST Segment: Normal Interpretation: ST / LAD /no CP /nac Re-Evaluation Re-Evaluation Time of Re-Evaluation: 01:00 Status: Improved Vital Signs Stable: Yes Pain Level: improved Appearance: NAD Lungs: Clear Skin: Warm and Dry Neuro: Alert and Oriented X3 Additional Comments: R 102 - improved Physician Notification Case Discussed Admit To: Observation Consult With: Dr Garcia Comments: Remdesivir, decadron , ns 115ml/hr , levoquin 750 mg , zosyn, lovenox 40mg , will write insulin orders in am 12 MN Critical Care Note Critical Care Note Total Critical Care Time (mins): 20 Comments: H & P, chart review , IV Abx, fluid orders , medication review, admitting consultation , admission holding orders , sepsis / covid / pneumonia treatment Course Course Hematology/Chemistry: 06/13/20 22:50 06/13/20 22:50 Orders, Labs, Meds: Lab Review 06/13/20 06/13/20 06/13/20 22:14 22:45 22:50 WBC 4.45 L RBC 4.46 Hgb 12.6 Hct 37.4 MCV 83.9 MCH 28.3 MCHC 33.7 RDW Coeff of Juliana 14.2 Plt Count 125 L Immature Gran % (Auto) 0.2 Neut % (Auto) 50.9 Lymph % (Auto) 41.1 [place] % (Auto) 7.6 Eos % (Auto) 0.0 Baso % (Auto) 0.2 Neut # (Auto) 2.3 Lymph # (Auto) 1.8 [place] # (Auto) 0.3 L Eos # (Auto) 0.0 Baso # (Auto) 0.0 Immature Gran # (Auto) 0.0 PT INR APTT Puncture Site Lrad O2 Saturation 95.6 ABG pH 7.51 H* ABG pCO2 30.0 L ABG pO2 71.0 L ABG HCO3 23.9 ABG Total CO2 24.8 ABG Base Excess 0.9 Tani Test + FiO2 % 21.0 Sodium Potassium Chloride Carbon Dioxide Anion Gap BUN Creatinine Estimated GFR (MDRD) BUN/Creatinine Ratio Glucose Lactic Acid Calcium Total Bilirubin AST ALT Alkaline Phosphatase Total Creatine Kinase Troponin I Total Protein Albumin Globulin Albumin/Globulin Ratio Procalcitonin TSH D-Dimer Urine Color Urine Clarity Urine pH Ur Specific [place] Urine Protein Urine Glucose (UA) Urine Ketones Urine Blood Urine Nitrite Urine Bilirubin Urine Urobilinogen Ur Leukocyte Esterase Urine Microscopic RBC Ur Squamous Epith Cells Urine Bacteria Urine Mucus Adenovirus (PCR) Not detected B. pertussis DNA (PCR) Not detected B.parapertussis DNA PCR Not detected C. pneumoniae DNA (PCR) Not detected Coronavirus OC43 (PCR) Not detected Coronavirus HKU1 (PCR) Not detected Coronavirus 229E (PCR) Not detected Coronavirus NL63 (PCR) Not detected Human Metapneumovir PCR Not detected Influenza Type A (PCR) Not detected Influenza B (RT-PCR) Not detected M. pneumoniae (PCR) Not detected Parainfluenza 1 (PCR) Not detected Parainfluenza 2 (PCR) Not detected Parainfluenza 3 (PCR) Not detected Parainfluenza 4 (PCR) Not detected RSV (PCR) Not detected Entero/Rhino (PCR) Not detected SARS-CoV-2 (PCR) Detected H 06/13/20 06/13/20 06/13/20 22:50 22:50 22:50 WBC RBC Hgb Hct MCV MCH MCHC RDW Coeff of Juliana Plt Count Immature Gran % (Auto) Neut % (Auto) Lymph % (Auto) [place] % (Auto) Eos % (Auto) Baso % (Auto) Neut # (Auto) Lymph # (Auto) [place] # (Auto) Eos # (Auto) Baso # (Auto) Immature Gran # (Auto) PT INR APTT Puncture Site O2 Saturation ABG pH ABG pCO2 ABG pO2 ABG HCO3 ABG Total CO2 ABG Base Excess Tani Test FiO2 % Sodium 136.7 Potassium 3.41 L Chloride 104.2 Carbon Dioxide 22.8 Anion Gap 13.11 BUN 10.5 Creatinine 0.60 Estimated GFR (MDRD) 105.00 BUN/Creatinine Ratio 17.50 Glucose 187.9 H Lactic Acid 0.93 Calcium 8.72 Total Bilirubin 0.49 AST 101.9 H ALT 43.3 H Alkaline Phosphatase 178.5 H Total Creatine Kinase 71.1 Troponin I < 0.012 Total Protein 8.18 Albumin 4.04 Globulin 4.14 Albumin/Globulin Ratio 0.97 Procalcitonin 0.17 TSH 5.980 H D-Dimer Urine Color Urine Clarity Urine pH Ur Specific [place] Urine Protein Urine Glucose (UA) Urine Ketones Urine Blood Urine Nitrite Urine Bilirubin Urine Urobilinogen Ur Leukocyte Esterase Urine Microscopic RBC Ur Squamous Epith Cells Urine Bacteria Urine Mucus Adenovirus (PCR) B. pertussis DNA (PCR) B.parapertussis DNA PCR C. pneumoniae DNA (PCR) Coronavirus OC43 (PCR) Coronavirus HKU1 (PCR) Coronavirus 229E (PCR) Coronavirus NL63 (PCR) Human Metapneumovir PCR Influenza Type A (PCR) Influenza B (RT-PCR) M. pneumoniae (PCR) Parainfluenza 1 (PCR) Parainfluenza 2 (PCR) Parainfluenza 3 (PCR) Parainfluenza 4 (PCR) RSV (PCR) Entero/Rhino (PCR) SARS-CoV-2 (PCR) 06/13/20 06/13/20 06/13/20 22:50 22:50 22:55 WBC RBC Hgb Hct MCV MCH MCHC RDW Coeff of Juliana Plt Count Immature Gran % (Auto) Neut % (Auto) Lymph % (Auto) [place] % (Auto) Eos % (Auto) Baso % (Auto) Neut # (Auto) Lymph # (Auto) [place] # (Auto) Eos # (Auto) Baso # (Auto) Immature Gran # (Auto) PT 11.0 INR 1.04 APTT 25.6 Puncture Site O2 Saturation ABG pH ABG pCO2 ABG pO2 ABG HCO3 ABG Total CO2 ABG Base Excess Tani Test FiO2 % Sodium Potassium Chloride Carbon Dioxide Anion Gap BUN Creatinine Estimated GFR (MDRD) BUN/Creatinine Ratio Glucose Lactic Acid Calcium Total Bilirubin AST ALT Alkaline Phosphatase Total Creatine Kinase Troponin I Total Protein Albumin Globulin Albumin/Globulin Ratio Procalcitonin TSH D-Dimer 357.22 Urine Color Yellow Urine Clarity Slightly Urine pH 5.5 Ur Specific [place] 1.025 Urine Protein 1+ H Urine Glucose (UA) Negative Urine Ketones Trace H Urine Blood Negative Urine Nitrite Negative Urine Bilirubin Negative Urine Urobilinogen 0.2 Ur Leukocyte Esterase Negative Urine Microscopic RBC 0-2 Ur Squamous Epith Cells 5-10 Urine Bacteria Trace Urine Mucus Trace Adenovirus (PCR) B. pertussis DNA (PCR) B.parapertussis DNA PCR C. pneumoniae DNA (PCR) Coronavirus OC43 (PCR) Coronavirus HKU1 (PCR) Coronavirus 229E (PCR) Coronavirus NL63 (PCR) Human Metapneumovir PCR Influenza Type A (PCR) Influenza B (RT-PCR) M. pneumoniae (PCR) Parainfluenza 1 (PCR) Parainfluenza 2 (PCR) Parainfluenza 3 (PCR) Parainfluenza 4 (PCR) RSV (PCR) Entero/Rhino (PCR) SARS-CoV-2 (PCR) Orders Category Date Time Status PLACE PATIENT OBSERVATION .TO MEDSUR (MONITORED BED ADMISSION 06/14/20 00:14 Active ) ABG DRAW REQUEST Stat CARDIO 06/13/20 22:17 Completed EKG-(ED ONLY) Stat CARDIO 06/13/20 22:14 Completed METERED DOSE INHALATION Routine CARDIO 06/13/20 22:22 Ordered PULSE OXIMETRY Routine CARDIO 06/14/20 00:14 Ordered TELEMETRY MONITORING TELE CARE 06/14/20 00:14 Active ED IV/MEDIPORT/POWERPORT .ONCE EMERGENCY 06/13/20 22:14 Active ABG Stat LAB 06/13/20 22:14 Completed BLOOD CULTURE (ED ONLY) Stat LAB 06/13/20 22:50 Received C-REACTIVE PROTEIN Stat LAB 06/13/20 22:50 Received CBC W/ AUTO DIFF Stat LAB 06/13/20 22:50 Completed COMPREHENSIVE METABOLIC PANEL Stat LAB 06/13/20 22:50 Completed CREATINE KINASE Stat LAB 06/13/20 22:50 Completed D-DIMER Stat LAB 06/13/20 22:50 Completed LACTIC ACID Stat LAB 06/13/20 22:50 Completed Lactic Acid Dehydrogenase Stat LAB 06/13/20 22:50 Received PARTIAL THROMBOPLASTIN TIME Stat LAB 06/13/20 22:50 Completed PROCALCITONIN Stat LAB 06/13/20 22:50 Completed PT WITH INR Stat LAB 06/13/20 22:50 Completed RESPIRATORY PANEL 2.1 (PCR) Stat LAB 06/13/20 22:45 Completed THYROID STIMULATING HORMONE Stat LAB 06/13/20 22:50 Completed TROPONIN I Stat LAB 06/13/20 22:50 Completed URINALYSIS C & S IF INDICATED Stat LAB 06/13/20 22:55 Completed 0.9 % Sodium Chloride [Saline Flush] MEDS 06/13/20 22:14 Active 1 syr IVF PRN PRN Acetaminophen [Tylenol] MEDS 06/13/20 22:14 Discontinued 1,000 mg PO ONCE STA Albuterol Inhaler(with Spacer) [Ventolin Hfa (Per Puff- MEDS 06/13/20 22:19 Discontinued with Spacer)] 2 puff IH ONCE STA Piperacillin Sodium/Tazobactam [Zosyn 4.5 gm] 4.5 gm MEDS 06/13/20 22:49 Discontinued 0.9 % Sodium Chloride [Sodium Chloride] 100 ml IV ONCE Sodium Chloride 0.9% [Sodium Chloride] 1,000 ml MEDS 06/13/20 22:19 D iscontinued IV BOLUS Sodium Chloride 0.9% [Sodium Chloride] 1,000 ml MEDS 06/13/20 22:38 Di scontinued IV BOLUS CHEST, 1V AP ONLY Stat RADS 06/13/20 22:19 Completed Medications Generic Name Dose Route Start Last Admin Trade Name Freq PRN Reason Stop Dose Admin Acetaminophen 500 mg 06/14/20 00:56 Acetaminophen 500 Mg Tablet PO Q4-6H PRN Fever >101 or pain Albuterol Sulfate 2 puff 06/14/20 00:45 Albuterol Sulfate (Ventolin Hfa) 18 Gm 1 Puff With Spacer IH Q4-6H PRN dyspnea Buspirone HCl 15 mg 12/13/20 09:00 Buspirone Hcl 10 Mg Tablet PO TID [facility] Carvedilol 3.125 mg 06/14/20 09:00 Carvedilol 3.125 Mg Tablet PO BID JUDAH Dicyclomine HCl 10 mg 06/14/20 00:45 Dicyclomine Hcl 10 Mg Capsule PO TID PRN Abdominal Pain Enoxaparin Sodium 40 mg 06/14/20 00:30 Enoxaparin Sodium 40 Mg/0.4 Ml Syr SUBCUT DAILY JUDAH Furosemide 20 mg 06/14/20 09:00 Furosemide 20 Mg Tablet PO DAILY JUDAH Gabapentin 0 mg 06/14/20 01:00 Gabapentin 300 Mg Capsule PO .COMPLEX JUDAH Sodium Chloride 1,000 mls @ 115 mls/hr 06/14/20 00:30 Sodium Chloride IV .Q8H42M JUDAH Levofloxacin/Dextrose 750 mg in 150 mls @ 100 mls/hr 06/14/20 00:30 Levaquin 750 Mg/150 Ml D5w IV 06/17/20 00:29 DAILY JUDAH Piperacillin Sod/Tazobactam 100 mls @ 100 mls/hr 06/14/20 00:25 Sod 4.5 gm/ Sodium Chloride IV 06/14/20 01:24 ONCE STA Dexamethasone Sodium Phosphate 50.6 mls @ 75 mls/hr 06/14/20 00:30 6 mg/ Sodium Chloride IV 06/14/20 01:10 ONCE STA REMDESIVIR SOLUTION 200 mg/ 250 mls @ 125 mls/hr 06/14/20 00:30 Sodium Chloride IV 06/14/20 02:29 ONCE ONE Non-Formulary Medication 800 mg 06/14/20 09:00 Gabapentin PO BID JUDAH Ondansetron HCl 4 mg 06/14/20 00:45 Ondansetron Hcl 4 Mg Tab.Rapdis PO Q8H PRN Nausea / Vomiting Pantoprazole Sodium 40 mg 06/14/20 01:00 Pantoprazole Sodium 40 Mg Tablet.Dr PO QDAY JUDAH Sodium Chloride 1 syr 06/13/20 22:14 0.9% Sodium Chloride 10 Ml Disp.Syrin IVF PRN PRN To flush IV Discontinued Medications Generic Name Dose Route Start Last Admin Trade Name Freq PRN Reason Stop Dose Admin Acetaminophen 1,000 mg 06/13/20 22:14 06/13/20 22:40 Acetaminophen 500 Mg Tablet PO 06/13/20 22:15 1,000 mg ONCE STA Administration Albuterol Sulfate 2 puff 06/13/20 22:19 06/13/20 22:49 Albuterol Sulfate (Ventolin Hfa) 18 Gm 1 Puff With Spacer IH 06/13/20 22:20 2 puff ONCE STA Administration Sodium Chloride 1,000 mls @ 1,000 mls/hr 06/13/20 22:19 06/14/20 00:12 Sodium Chloride IV 06/13/20 23:18 Not Given BOLUS STA Sodium Chloride 1,000 mls @ 500 mls/hr 06/13/20 22:38 06/13/20 22:45 Sodium Chloride IV 06/14/20 00:18 500 mls/hr BOLUS STA Administration Piperacillin Sod/Tazobactam 100 mls @ 100 mls/hr 06/13/20 22:49 06/13/20 23:41 Sod 4.5 gm/ Sodium Chloride IV 06/13/20 23:48 100 mls/hr ONCE STA Administration Vital Signs: Temp Pulse Resp BP Pulse Ox 06/13/20 22:05 102.1 F H 121 H 20 159/92 H 96 Discharge Plan Discharge Patient Disposition: PLACED OBSERVATION Discharge Problem: COVID-19, Fever, Tachycardia Pneumonia Qualifiers: Pneumonia type: due to unspecified organism Laterality: left Lung location: lower lobe of lung Qualified Code(s): J18.9 - Pneumonia, unspecified organism ED Provider: SANCHEZ SKY Condition: Good Physician Progress Note: []Pt agrees with observation / improved
[2020-06-13 23:11] LABS: BASOPHILS % (AUTO) 0.2 % (0.0-3.0); HEMATOCRIT 37.4 % (37.0-47.0); HEMOGLOBIN 12.6 g/dl (12.0-16.0); IMMATURE GRANULOCYTE % (AUTO) 0.2 % (0.0-5.0); LYMPHOCYTES # (AUTO) 1.8 K/uL (0.60-3.4); LYMPHOCYTES % (AUTO) 41.1 (10.0-50.0); MEAN CORPUSCULAR HEMOGLOBIN 28.3 pg (27.0-31.0); MEAN CORPUSCULAR HGB CONC 33.7 (31.8-35.4); MEAN CORPUSCULAR VOLUME 83.9 fl (81.0-99.0); MONOCYTES # (AUTO) 0.3 K/uL (0.4-2.0); MONOCYTES % (AUTO) 7.6 (0-10); NEUTROPHILS # (AUTO) 2.3 K/ul (2.0-6.9); NEUTROPHILS % (AUTO) 50.9 % (42.2-75.2); PLATELET COUNT 125 10^3/uL (140-440); RDW COEFFICIENT OF VARIATION 14.2 % (11.6-14.8); RED BLOOD COUNT 4.46 10^6/ul (4.20-5.40); WHITE BLOOD COUNT 4.45 K/ul (4.6-10.2)
[2020-06-13 23:17] LABS: ALANINE AMINOTRANSFERASE 43.3 U/L (0-35); ALBUMIN 4.04 g/dL (3.5-5.0); ALKALINE PHOSPHATASE 178.5 U/L (38-126); ASPARTATE AMINO TRANSFERASE 101.9 U/L (14-36); BILIRUBIN,TOTAL 0.49 mg/dL (0.2-1.3); BLOOD UREA NITROGEN 10.5 mg/dL (7-17); CALCIUM 8.72 mg/dL (8.4-10.2); CARBON DIOXIDE 22.8 mmol/L (22-30.0); CHLORIDE 104.2 mmol/L (98-107); CREATINE KINASE 71.1 U/L (30-135); GLUCOSE 187.9 mg/dL (74-106); POTASSIUM 3.41 mmol/L (3.5-5.1); SODIUM 136.7 mmol/L (134.5-145); TOTAL PROTEIN 8.18 g/dL (6.3-8.2)
[2020-06-13 23:17] LABS: BILIRUBIN,URINE Negative (NEGATIVE); CLARITY,URINE Slightly (CLEAR); COLOR,URINE Yellow (YELLOW); GLUCOSE, URINE (UA) Negative (NEGATIVE); KETONES,URINE Trace (NEGATIVE); LEUKOCYTE ESTERASE ,URINE Negative (NEGATIVE); NITRITE,URINE Negative (NEGATIVE); PH,URINE 5.5 (5-9); PROTEIN,URINE 1+ (NEGATIVE); URINE, BLOOD Negative (NEGATIVE); UROBILINOGEN,URINE 0.2 (0.2)
[2020-06-13 23:25] LABS: BACTERIA,URINE TRACE (NOT PRESENT); MUCUS,URINE TRACE (NOT PRESENT); URINE RBC, MICROSCOPIC 0-2 (0-2)
[2020-06-13 23:34] LABS: TROPONIN I < 0.012 ng/ml (0.0000-0.120)
--- NOTE | 2020-06-13 23:42 | DI ---
EXAM: AP single view of the chest. HISTORY: Cough. Fever. PIU. Chronic obstructive pulmonary disease. FINDINGS: The bones are unremarkable. The cardiac silhouette and pulmonary vasculature are within no rmal limits. The costophrenic angles are clear. There is minimal left basilar atelectasis and/or pn eumonia. Impression: Minimal left basilar atelectasis and/or pneumonia.
[2020-06-13 23:56] LABS: PARTIAL THROMBOPLASTIN TIME 25.6 SEC (23.9-40.0)
[2020-06-14] MEDS ORDERED: ZOSYN 4.5 GM 4.5 GM in SODIUM CHLORIDE 100 ML IV STA (00:25)
[2020-06-14] MEDS ORDERED: DECADRON 6 MG in SODIUM CHLORIDE 50 ML IV STA (00:30)
[2020-06-14] MEDS ORDERED: LEVAQUIN 750 MG/150 ML D5W 750 MG/150 ML BAG IV SCH (00:30)
[2020-06-14] MEDS ORDERED: REMDESIVIR 200 MG in SODIUM CHLORIDE 210 ML IV ONE ×2 (00:30→09:00)
[2020-06-14] MEDS ORDERED: BENTYL PO PRN (00:45)
[2020-06-14] MEDS ORDERED: ZOFRAN ODT PO PRN (00:45)
[2020-06-14 01:28] VITALS: BMI 35.6
[2020-06-14] MEDS: LOVENOX SUBCUT SCH (02:47)
[2020-06-14] MEDS: DECADRON IVP SCH ×2 (02:58→08:44)
[2020-06-14 05:21] LABS: EOSINOPHILS % (AUTO) 0.3 % (0.0-7.0); HEMATOCRIT 33.1 % (37.0-47.0); HEMOGLOBIN 11.1 g/dl (12.0-16.0); IMMATURE GRANULOCYTE % (AUTO) 0.3 % (0.0-5.0); LYMPHOCYTES # (AUTO) 1.3 K/uL (0.60-3.4); LYMPHOCYTES % (AUTO) 35.7 (10.0-50.0); MEAN CORPUSCULAR HEMOGLOBIN 28.5 pg (27.0-31.0); MEAN CORPUSCULAR HGB CONC 33.5 (31.8-35.4); MEAN CORPUSCULAR VOLUME 85.1 fl (81.0-99.0); MONOCYTES # (AUTO) 0.2 K/uL (0.4-2.0); MONOCYTES % (AUTO) 5.6 (0-10); NEUTROPHILS # (AUTO) 2.1 K/ul (2.0-6.9); NEUTROPHILS % (AUTO) 58.1 % (42.2-75.2); PLATELET COUNT 104 10^3/uL (140-440); RDW COEFFICIENT OF VARIATION 14.7 % (11.6-14.8); RED BLOOD COUNT 3.89 10^6/ul (4.20-5.40); WHITE BLOOD COUNT 3.56 K/ul (4.6-10.2)
[2020-06-14 05:32] LABS: ALANINE AMINOTRANSFERASE 33.7 U/L (0-35); ALBUMIN 3.42 g/dL (3.5-5.0); ALKALINE PHOSPHATASE 134.7 U/L (38-126); BILIRUBIN,TOTAL 0.48 mg/dL (0.2-1.3); CALCIUM 7.88 mg/dL (8.4-10.2); CARBON DIOXIDE 22.6 mmol/L (22-30.0); CHLORIDE 101.9 mmol/L (98-107); CREATININE 0.73 mg/dL (0.60-1.30); GLUCOSE 399.9 mg/dL (74-106); POTASSIUM 3.79 mmol/L (3.5-5.1); SODIUM 133.4 mmol/L (134.5-145); TOTAL PROTEIN 7.04 g/dL (6.3-8.2)
[2020-06-14] MEDS: PROTONIX PO SCH (05:45)
[2020-06-14] MEDS ORDERED: ZOSYN 4.5 GM 4.5 GM in SODIUM CHLORIDE 100 ML IV SCH (06:00)
[2020-06-14] MEDS ORDERED: SODIUM CHLORIDE 500 ML IV STA (06:52)
--- NOTE | 2020-06-14 07:06 | PCM ---
Chief Complaint Chief Complaint: COVID +, Fever,body aches, shortness of breath, N/V/D. History of Present Illness History of Present Illness: 54 yo CF presented to ED 06/13 at 21:58 with fever/body aches/chills/SOA/N/V/D. Initial vitals showed temp of 102.1, pulse 121, rr 20, bp 159/92, pulse ox 96%. With vitals, she met SIRS criteria and concern for COVID/Pneumonia and sepsis. She met with DR. Quinteros in the Ed who noted constant symptoms, mild to moderate, malaise, fever, MACHADO, no COPPOLA, +myalgia, non productive cough, dyspnea, fever, dizziness, emesis, no chest pain, no wheezing, no hemoptysis, no leg/calf pain. DDX considered beyond COVID-19 was CAP, urinary sepsis, influenza. PMHX complicated by obesity BMI 35.7, anemia, leukocytopenia, anxiety, arthritis, history of non alcohol induced cirrhosis, depression, IDDM poorly controlled, HAYLEY w/ + ROSINA ABS on 07/30/19, MIKI. PMHX/PSHX reviewed and no changes (Britt/Hysterectomy). Exam in ED showed ill appearing female, clear airways. CXR completed atelectasis vs pneumonia in the LLL. EKG completed and reviewed: Sinus Tachy, nl axis. No acute ST/T changes. Contacted me at 1230 on 06/14/20 for admission. We discussed medications and effects. IDEAL Body weight 136lb, Adjust body weight 172 lb. Based on body weight measurements NS should be ~102-118. 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 I discussed with ED provider fluids at 115ml/hour overnight based on above. Labs showed WBC 4.45, Hgb of 12.6, plt of 125. ABG showed O2 95.6, ph 7.51, pco2 30, po2 71, hco3 23.9, Allens +. She was on FIO2 of 21%. Repeat ABG ordered for this am on 2L NC o2, with recommendation to titrate to effect. My interpretation of ABG: Acute primary respiratory alkalosis uncompensated. PCR panel was completed and SARS-COV-2 was detected. Remainder of viral pathogens negative to include influenza. Metabolic panel showed sodium 136.7, K+ 3.41, cl 104.2, bun 10.5, cr 0.60, glucose was 187.9. Calcium 8.72, ast 101.9, alt 43.3. Troponin was negative. Albumin 4.04. TSH mildly elevated at 5.980, will work on that as outpatient. Ddimer was negative at 357.22. PT 11, INR 1.04, aptt 25.6. Procalcitonin 0.17, lactic acid 0.93. UA mildly concentrated with SG 1.025, pH 5.5, trace ketones squam 5-10, rbc 0-2, urine blood negative. We reviewed medications. Will start with levquin 750 daily, NS 115 ml/hour, remdesivir per protocol, place in SCU, start decadron, monitor glucose. Zosyn was given in ED. I recommended with Ddimer negative (FERRITIN PENDING) to start with lovenox 40mg daily (plus thrombocytopenia). I noted I would cover for insulin in the am. Most of her home meds were held. I had initially thought about placing her as observation but based on presentation with concern for sepsis/COVID/Pneumonia/IDDM I would recommend full admission to the hospital at this time. It appears CRP was ordered in ED but not yet back. This can help with deciding about anticoagulation as well. Last A1C 02/12/20 was 7.61. I will repeat this today as none within 30 days of admission. Rounding this am started at 0630 and labs had returned by that time. New labs showed further decrease of WBC from 44.5 to 3.56 and hgb from 12.6 to 11.1, plt from 125 to 104. Hemodilution appears possible in this case. She was bolused in the ED with NS. Differential shows a decline in monocytes. I have reordered an ABG for this am on oxygen. This am her sodium was 133.4 and corrected to 138 (Woodward)- 141(Lemuel). Potassium was normal 3.79, CL normal 101.9. Creatinine 0.60 to 0.73 and GFR 105 to 84. Will need to continue to watch that. Her Glucose was 399.9 today. I have resumed her 92 units of lantus BID but bumped this up to 95 units BID today due to remdesivir. I will have Q4 hour accucheck and correctional insulin as well. Calcium appeared low this am at 7.88, but with her albumin of 3.42 she increased to 8.3. This was still a little low. I will replace calcium with oral calcium supplement. She has not had low calcium historically, this is new. Alk phos chronic elevation, stable. AST improved from 101.9 to 82. ALT normal at 33.7. Known liver disease chronically. Vitals this am showed BP 90/52, pulse 57. Her MAP is 65. I will bolus again 500 cc NS. I do not want to overhydrate her. However I want MAP to be maintained at >65. Bipap overnight, oxygen during the day to Keep >92%. Okay to increase FIO2 as needed. Reviewed nursing documentation: Obs narratives resting in bed comfortably, jello/apple juice. Patient noted feeling better, pain in rigth side 02/09. Dull throbbing. NS in left AC. Tele normal. 0300 resting comfortably. No s/sx of distress. 0400 resting. 0500 resting. NO pain. 2L saturations upper 90s. 0600 up to bathroom with standby assist.[place]ira dizzy up w/ assit. NO other c/o. Patient seen in SCU this am. PPE was donned/Doffed and this added ~5 minutes to the evaluation today. Patient interviewed independently. She noted symptoms started on sunday 06/10 w/ fever, fatigue, decreased taste/smell, body aches. She denied any known exposure/travel, she notes that she felt worse, was scheduled for carpal tunnel surgery and was told to not take NSAIDS. She has not used anything for her symptoms. By Monday she had Nausea/emesis/diarrhea, decreased PO, decreased appetite. She noted that she could not take the fever any longer, did not know what to take and presented to ED. She is feeling markedly better now. O2 discussed to be continued, will use remdesivir, will use dexamethasone, will replace her calcium, will correct/monitor sugars as a reaction to steroid use. No urinary symptoms. No freq/hesitancy/burning. Father is who she wants contacted. She is full code. Spent 10 minutes today discussing next steps, make sure POA, make sure recommendations are known/written down. She is afraid, and we discussed medication options, limited options with science and data vs internet suggestions of what could work. We discussed evidence based options at length today. Discussed reality of the virus as somewhat unpredictable. We will monitor her oxygen, BP, BG, we will give meds as listed above and advance interventions as needed. Bipap overnight. Proning. Discussed several next steps to include advanced care planning. Full code for now. REVIEW OF SYMPTOMS: (Positives bolded) General: weight loss, fever, chills, night sweats, fatigue, appetite loss HEENT: blurry vision, eye pain, eye discharge, dry eyes, decreased vision, sore throat tinnitus, bloody nose, hearin gloss, sinus pain/pressure, ear pain/pressure. Respiratory: shortness of breath, cough, hemoptysis, wheezing, pleurisy, Cardiovascular: chest pain, PND, palpitation, edema, orthopnea, syncope, swelling of extremities Gastro: Nausea, vomiting, diarrhea, hematemesis, abdominal pain, constipation Genito: hematuria, dysuria, glycosuria, hesitancy, frequency, incontinence Musckelo: Arthralgia, myalgia, muscle weakness, joint swelling, NSAID use Skin: rash, pruritis, sores, nail changes, skin thickening, change in wart/mole, itching, rash, new lesions, pruritus, nail changes Neuro: Migraine, numbness, ataxia, tremor, vertigo, weakness, memory loss, Irritability, dizziness Endocrine: excessive thirst, polyuria, cold intolerance, heat intolerance, goiter, +DM Insulin dependent Psychiatric: depression, anxiety, anti-depressants, alcohol abuse, drug abuse, insomnia, change in sleep pattern and mood changes Heme/lymph: easy bruising, bleeding gums, blood clots, swollen glands, lymphedema, thrombocytopenia. Allergic/immune: allergic rhinitis, hay fever, asthma, hives Exam: Vital Signs - 24 hr 06/13/20 22:05 06/14/20 00:30 06/14/20 01:10 Temperature 102.1 F H 98.0 F Pulse Rate 121 H 107 H 88 Respiratory Rate 20 16 Blood Pressure 159/92 H 126/58 L O2 Sat by Pulse Oximetry 96 95 96 06/14/20 03:12 06/14/20 06:00 06/14/20 07:05 Temperature 98.2 F 98.2 F Pulse Rate 57 L 57 L Respiratory Rate 20 20 Blood Pressure 90/52 L 90/52 L O2 Sat by Pulse Oximetry 96 95 95 Constitutional: Appearance- Mild tachpneic RR at 20. No accessory muscle usage, no retractions. Mild distress, Consistent with stated age. Orientation- Oriented x 3, alert Gait- In hospital bed. Build and Nutrition-Obese female General- Patient is pleasant and cooperative with the interview and exam. Integumentary: General-No rashes, ulcers or lesions. Palpation- Normal skin moisture/turgor. Skin is warm to touch, appropriate. Capillary refill is normal bilateral Upper and lower extremity. Head/Neck: Head- normocephalic and atraumatic. Neck- without visible/palpable lumps or pulsations. Palpation- No bony tenderness about head/neck along frontal, occipital, temporal, parietal, mastoid, jawline, zygoma, orbit or any other location. NO temporal artery tenderness. No TMJ tenderness. Neck Supple. Thyroid-No thyromegaly, no nodules Eye: Bilaterally PERRLA, EOMI. No discharge. Upper and lower eyelids are normal. Sclera/conjunctiva normal without discharge. Cornea is normal and clear. Lens is normal. Eyeball appears normal. No ciliary flushing, no conjunctival injection. ENMT: Pinna- normal without tenderness or erythema. External auditory canal Left- normal without erythema or discharge, no excessive cerumen. External auditory canal Right-normal without erythema or discharge, no excessive cerumen. TM left- Padron/pearly, normal light reflex and anatomy TM Right- Padron/pearly, normal light reflex and anatomy Hearing Assessment-normal to conversational speech. Nose and sinus- No sinus tenderness along frontal/maxillary region. External appearance normal and midline. Nares- bilateral quiet airflow, no discharge. Nasal mucosa- No bleeding noted and no ulcerations observed. [place], moist. Turbinates non boggy. Lips- normal color, moist without cracks/lesions Oral Cavity/Palate- hard/soft palate intact without lesions, oral mucosa pink and moist. Tongue normal midline. Oropharynx- no pharyngeal erythema, Uvula midline. No post nasal drip. No exudate. Salivary glands- Non tender to palpation CHEST/LUNG: Inspection- symmetric chest wall no pectus deformity. Mild increased effort, mild distress, no use of accessory muscles. Palpation- nontender barajas um, ribline. No abnormal pulsations. Auscultation- Breath decreased, diminished effort throughout all lung mcdonald. tracheal sounds, bronchial sounds overlying sternum, Bronchovessicular sounds between scapulae posteriorly, vessicular breath sounds heard throughout periphery coarse. Lungs are mostly clear today scattered rhonchi. Adventitious sounds- No wheezes, rales, scattered rhonchi. CARDIOVASCULAR: Carotid artery- normal, no bruits or abnormal pulsations. Jugular vein- no pulsations. Palpation/Percussion- Normal PMI, no palpable thrill Auscultation- Regular rate and rhythm. No murmur noted in sitting, supine positions. Extremities- no digital clubbing, cyanosis, edema, increased warmth. ABDOMEN: Inspection- normal and no visible pulsations. Normal contour. Auscultation- Bowel sounds normal, no abdominal bruits. Palpation/Percussion- soft, non-tender, no rebound tenderness, no rigidity (guarding), no jar tenderness, no masses. Liver-no hepatomegaly, Spleen no splenomegaly, Hernias- none. Rectal not examined. Peripheral Vascular: Upper extremity Left- Normal temperature with pink nailbeds and no ulcerations. Upper extremity Right- Normal temperature with pink nailbeds and no ulcerations. Lower extremity- Normal temperature with pink nailbeds and no ulcerations. DP pulses 2+ bilaterally. Pedal hair intact. Normal capillary refill. Edema- No edema. Musculoskeletal: Generalized-No generalized swelling or edema of extremities, no digital clubbing or cyanosis, neurovascularly intact all four extremities. Upper extremity- Symmetrical posture. No visible deformity. Normal sensation along medial and lateral upper extremity proximally and distally. NO tenderness overlying shoulder, lateral/medial epicondyle. 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 Elbow palpated, no tenderness overlying olecranon. Normal supination, pronation to active/passive ROM and to resisted rotation. Bicep insertion/tricep insertion appear normal without obvious pathology. Rotator cuff evaluated and intact. Normal wrist ROM bilaterally. Normal hand movement, intrinsic muscles of hands normal. No tenderness to palpation of hands/wrists/elbows. Lower extremity- Hip: Not tender to palpation, no pain, no swelling, edema or erythema of surrounding tissue, normal strength and tone. Normal appearing hip ROM bilaterally without pain. Knee: Knee ROM normal. No tenderness overlying trochanters, no tenderness about patella, quad tendon, patellar tendon. No tenderness at tibial tuberosity. Ankle: normal ROM not tender to palpation along medial/lateral malleolus. Foot: Normal movement of toes, no tenderness bilateral feet/toes. Normal foot type. Spine/Ribs- No deformities, masses or tenderness, no known fractures, normal strength, Normal ROM. Normal stability No tenderness along C/T/L spine. Normal appearing ROM about spine. Neurological: General- Moves all 4 extremities symmetrically. Symmetrical face and body posture. Cranial nerves- individually evaluated II-XII and intact. PERRLA, Normal EOMI, visual/special senses appear intact, Face is symmetrical and normal sensation/movement, normal tongue, normal strength/posture of neck musculature. Reflexes- intact with DTR 2+ patellar, Achilles, bicep, brachial, tricep. Ankle clonus normal with 2 beats. Strength- 5/5 bilateral UE and LE. Soft touch- intact bilateral UE and LE. Temperature sensation- intact bilateral UE and LE. Neuropsych: Oriented- Person, place, time. (AAOx3), Mood/affect- normal and congruent. Able to articulate well. Speech-Normal speech, normal rate, normal tone, normal use of language, volume and coherence. Thought content- normal with ability to perform basic computations and apply abstract thought/reason. Associations- intact, no SI/HI, no hallucinations, delusions, obsessions. Judgment/insight- Appropriate. Memory-Recall intact, remote and recent memory intact. Knowledge- Age appropriate fund of knowledge, concentration and attention span normal. Lymphatic: Head/Neck- normal size and non tender to palpation. Axillary- normal size and non tender to palpation. Femoral and Inguinal- normal size and non tender to palpation. Allergies Allergies Allergy/AdvReac Type Severity Reaction Status Date / Time sulfasalazine AdvReac Severe Diarrhea Verified 05/22/20 08:59 dulaglutide [From Trulicity] AdvReac Nausea Verified 05/22/20 08:59 sumatriptan [From Imitrex] AdvReac Anxiety Verified 05/22/20 08:59 sumatriptan succinate AdvReac CANT Verified 05/22/20 08:59 [From Imitrex] BREATHE, CHILLS nylon AdvReac Rash Uncoded 05/05/20 11:00 [facility] Medical History (Updated 06/15/20 @ 07:44 by LILLIAM GARCIA MD) Anemia Anxiety Arthritis Cholecystectomy planned Cirrhosis of liver not due to alcohol Depression Diabetes mellitus Hepatitis C Leukocytosis Sleep apnea Surgical History breast ultrasound (08/27/18) EGD with Biopsy (11/28/18) History of carpal tunnel surgery History of ear, nose, and throat (ENT) surgery (~10/2016) History of musculoskeletal system surgery History of tubal ligation Status post cholecystectomy Status post hysterectomy (01/30/17) Tubal ligation status Family History Mother Diabetes FATHER Diabetes Hypertension Grandfather/Grandmother No problems noted. Other Cancer Parkinsons disease Social History Smoking and tobacco status: Former smoker Tobacco: How many years used: 30 Passive smoking exposure: No How long ago did patient quit smokin years ago Quit status: quit date established Second hand smoke exposure: No Smoking risk assessment performed: No Alcohol intake: never Counseling given: No Substance use type: does not use Counseling given: No Counseling provided: none Leslie/spiritism: OTHER Special leslie needs: No Agree to transfusion: Yes Adopted: No Caregiver/support person: No Foster care: No Household members: family and children Housing: house Marital status: D Lives independently: Yes Daycare: no daycare Number of children: 3 Number of grandchildren: 5 Highest education level completed: some college, no degree Financial difficulty paying for basics: somewhat hard service: No custodial: No Current occupational status: unemployed Current occupational exposures/hazards: No Pets and animals: Yes Leisure activites: clubs, art and fishing History of recent travel: No Sexually active: No Do you think of yourself as: straight/heterosexual Current gender identity: female Seatbelt use: always Helmet use: No Drives intoxicated or rides with intoxicated cpr ambulance driver: No Current diet type/program: regular Well-balanced diet: about half the time Caffeine: Yes Eating out: rarely or never Reads food labels: usually or always During the past year weight has: remained stable Water heater temperature set < 120 degrees: No Working smoke detector in home: Yes Fire extinguisher in home: Yes Carbon monoxide detector in home: Yes Firearms in home: No What type of physical activity do you participate in?: walking Physical activity functional status: independent ambulation How many days of moderate to strenuous exercise, like a brisk walk, did you do in the last 7 days: 0 Medications Medications: Medications Generic Name Dose Route Start Last Admin Trade Name Freq PRN Reason Stop Dose Admin Acetaminophen 500 mg 06/14/20 00:56 Acetaminophen 500 Mg Tablet PO Q4-6H PRN Fever >101 or pain Albuterol Sulfate 2 puff 06/14/20 00:45 Albuterol Sulfate (Ventolin Hfa) 18 Gm 1 Puff With Spacer IH Q4-6H PRN dyspnea Buspirone HCl 15 mg 06/14/20 09:00 Buspirone Hcl 10 Mg Tablet PO TID JUDAH Carvedilol 3.125 mg 06/14/20 09:00 Carvedilol 3.125 Mg Tablet PO BID JUDAH Dexamethasone Sodium Phosphate 6 mg 06/14/20 02:30 06/14/20 02:58 Dexamethasone Sod Phos 10 Mg/Ml Inj IVP 6 mg DAILY JUDAH Administration Dicyclomine HCl 10 mg 06/14/20 00:45 Dicyclomine Hcl 10 Mg Capsule PO TID PRN Abdominal Pain Enoxaparin Sodium 40 mg 06/14/20 00:30 06/14/20 02:47 Enoxaparin Sodium 40 Mg/0.4 Ml Syr SUBCUT 40 mg DAILY JUDAH Administration Furosemide 20 mg 06/14/20 09:00 Furosemide 20 Mg Tablet PO DAILY [facility] Gabapentin 600 mg 06/14/20 09:00 Gabapentin 300 Mg Capsule PO BID JUDAH Gabapentin 400 mg 06/14/20 12:00 Gabapentin 100 Mg Capsule PO 1200 JUDAH Gabapentin 200 mg 06/14/20 09:00 Gabapentin 100 Mg Capsule PO BID JUDAH Sodium Chloride 1,000 mls @ 115 mls/hr 06/14/20 00:30 Sodium Chloride IV .Q8H42M JUDAH Levofloxacin/Dextrose 750 mg in 150 mls @ 100 mls/hr 06/14/20 00:30 06/14/20 02:47 Levaquin 750 Mg/150 Ml D5w IV 06/17/20 00:29 100 mls/hr DAILY JUDAH Administration Piperacillin Sod/Tazobactam 100 mls @ 100 mls/hr 06/14/20 06:00 06/14/20 05:15 Sod 4.5 gm/ Sodium Chloride IV 06/17/20 05:59 100 mls/hr Q6HR JUDAH Administration REMDESIVIR SOLUTION 200 mg/ 250 mls @ 125 mls/hr 06/14/20 09:00 Sodium Chloride IV 06/14/20 10:59 ONCE ONE Sodium Chloride 500 mls @ 500 mls/hr 06/14/20 06:52 Sodium Chloride IV 06/14/20 07:51 BOLUS STA Insulin Glargine 95 unit 06/14/20 07:00 Insulin Glargine,Hum.Rec.Anlog 100 Units/Ml SUBCUT BID JUDAH Ondansetron HCl 4 mg 06/14/20 00:45 Ondansetron Hcl 4 Mg Tab.Rapdis PO Q8H PRN Nausea / Vomiting Pantoprazole Sodium 40 mg 06/14/20 06:30 06/14/20 05:45 Pantoprazole Sodium 40 Mg Tablet.Dr PO 40 mg 0630 JUDAH Administration Sodium Chloride 1 syr 06/13/20 22:14 0.9% Sodium Chloride 10 Ml Disp.Syrin IVF PRN PRN To flush IV Body Composition Height: 5 ft 7 in Weight: 227 lb 11.8 oz Body Mass Index (BMI): 35.6 Vital Signs Temperature: 98.2 F Pulse Rate: 57 Respiratory Rate: 20 Blood Pressure: 90/52 O2 Sat by Pulse Oximetry: 95 Lab/Tests/Diagnostic Imaging Lab/Tests/Diagnostic Imaging: Lab Review 06/13/20 06/13/20 06/13/20 22:14 22:45 22:50 WBC 4.45 L RBC 4.46 Hgb 12.6 Hct 37.4 MCV 83.9 MCH 28.3 MCHC 33.7 RDW Coeff of Juliana 14.2 Plt Count 125 L Immature Gran % (Auto) 0.2 Neut % (Auto) 50.9 Lymph % (Auto) 41.1 [place] % (Auto) 7.6 Eos % (Auto) 0.0 Baso % (Auto) 0.2 Neut # (Auto) 2.3 Lymph # (Auto) 1.8 [place] # (Auto) 0.3 L Eos # (Auto) 0.0 Baso # (Auto) 0.0 Immature Gran # (Auto) 0.0 PT INR APTT Puncture Site Lrad O2 Saturation 95.6 ABG pH 7.51 H* ABG pCO2 30.0 L ABG pO2 71.0 L ABG HCO3 23.9 ABG Total CO2 24.8 ABG Base Excess 0.9 Tani Test + FiO2 % 21.0 Sodium Potassium Chloride Carbon Dioxide Anion Gap BUN Creatinine Estimated GFR (MDRD) BUN/Creatinine Ratio Glucose Lactic Acid Calcium Total Bilirubin AST ALT Alkaline Phosphatase Total Creatine Kinase Troponin I Total Protein Albumin Globulin Albumin/Globulin Ratio Procalcitonin TSH D-Dimer Urine Color Urine Clarity Urine pH Ur Specific Letts Urine Protein Urine Glucose (UA) Urine Ketones Urine Blood Urine Nitrite Urine Bilirubin Urine Urobilinogen Ur Leukocyte Esterase Urine Microscopic RBC Ur Squamous Epith Cells Urine Bacteria Urine Mucus Adenovirus (PCR) Not detected B. pertussis DNA (PCR) Not detected B.parapertussis DNA PCR Not detected C. pneumoniae DNA (PCR) Not detected Coronavirus OC43 (PCR) Not detected Coronavirus HKU1 (PCR) Not detected Coronavirus 229E (PCR) Not detected Coronavirus NL63 (PCR) Not detected Human Metapneumovir PCR Not detected Influenza Type A (PCR) Not detected Influenza B (RT-PCR) Not detected M. pneumoniae (PCR) Not detected Parainfluenza 1 (PCR) Not detected Parainfluenza 2 (PCR) Not detected Parainfluenza 3 (PCR) Not detected Parainfluenza 4 (PCR) Not detected RSV (PCR) Not detected Entero/Rhino (PCR) Not detected SARS-CoV-2 (PCR) Detected H 06/13/20 06/13/20 06/13/20 22:50 22:50 22:50 WBC RBC Hgb Hct MCV MCH MCHC RDW Coeff of Juliana Plt Count Immature Gran % (Auto) Neut % (Auto) Lymph % (Auto) [place] % (Auto) Eos % (Auto) Baso % (Auto) Neut # (Auto) Lymph # (Auto) [place] # (Auto) Eos # (Auto) Baso # (Auto) Immature Gran # (Auto) PT INR APTT Puncture Site O2 Saturation ABG pH ABG pCO2 ABG pO2 ABG HCO3 ABG Total CO2 ABG Base Excess Tani Test FiO2 % Sodium 136.7 Potassium 3.41 L Chloride 104.2 Carbon Dioxide 22.8 Anion Gap 13.11 BUN 10.5 Creatinine 0.60 Estimated GFR (MDRD) 105.00 BUN/Creatinine Ratio 17.50 Glucose 187.9 H Lactic Acid 0.93 Calcium 8.72 Total Bilirubin 0.49 AST 101.9 H ALT 43.3 H Alkaline Phosphatase 178.5 H Total Creatine Kinase 71.1 Troponin I < 0.012 Total Protein 8.18 Albumin 4.04 Globulin 4.14 Albumin/Globulin Ratio 0.97 Procalcitonin 0.17 TSH 5.980 H D-Dimer Urine Color Urine Clarity Urine pH Ur Specific Letts Urine Protein Urine Glucose (UA) Urine Ketones Urine Blood Urine Nitrite Urine Bilirubin Urine Urobilinogen Ur Leukocyte Esterase Urine Microscopic RBC Ur Squamous Epith Cells Urine Bacteria Urine Mucus Adenovirus (PCR) B. pertussis DNA (PCR) B.parapertussis DNA PCR C. pneumoniae DNA (PCR) Coronavirus OC43 (PCR) Coronavirus HKU1 (PCR) Coronavirus 229E (PCR) Coronavirus NL63 (PCR) Human Metapneumovir PCR Influenza Type A (PCR) Influenza B (RT-PCR) M. pneumoniae (PCR) Parainfluenza 1 (PCR) Parainfluenza 2 (PCR) Parainfluenza 3 (PCR) Parainfluenza 4 (PCR) RSV (PCR) Entero/Rhino (PCR) SARS-CoV-2 (PCR) 06/13/20 06/13/20 06/13/20 22:50 22:50 22:55 WBC RBC Hgb Hct MCV MCH MCHC RDW Coeff of Juliana Plt Count Immature Gran % (Auto) Neut % (Auto) Lymph % (Auto) [place] % (Auto) Eos % (Auto) Baso % (Auto) Neut # (Auto) Lymph # (Auto) [place] # (Auto) Eos # (Auto) Baso # (Auto) Immature Gran # (Auto) PT 11.0 INR 1.04 APTT 25.6 Puncture Site O2 Saturation ABG pH ABG pCO2 ABG pO2 ABG HCO3 ABG Total CO2 ABG Base Excess Tani Test FiO2 % Sodium Potassium Chloride Carbon Dioxide Anion Gap BUN Creatinine Estimated GFR (MDRD) BUN/Creatinine Ratio Glucose Lactic Acid Calcium Total Bilirubin AST ALT Alkaline Phosphatase Total Creatine Kinase Troponin I Total Protein Albumin Globulin Albumin/Globulin Ratio Procalcitonin TSH D-Dimer 357.22 Urine Color Yellow Urine Clarity Slightly Urine pH 5.5 Ur Specific Letts 1.025 Urine Protein 1+ H Urine Glucose (UA) Negative Urine Ketones Trace H Urine Blood Negative Urine Nitrite Negative Urine Bilirubin Negative Urine Urobilinogen 0.2 Ur Leukocyte Esterase Negative Urine Microscopic RBC 0-2 Ur Squamous Epith Cells 5-10 Urine Bacteria Trace Urine Mucus Trace Adenovirus (PCR) B. pertussis DNA (PCR) B.parapertussis DNA PCR C. pneumoniae DNA (PCR) Coronavirus OC43 (PCR) Coronavirus HKU1 (PCR) Coronavirus 229E (PCR) Coronavirus NL63 (PCR) Human Metapneumovir PCR Influenza Type A (PCR) Influenza B (RT-PCR) M. pneumoniae (PCR) Parainfluenza 1 (PCR) Parainfluenza 2 (PCR) Parainfluenza 3 (PCR) Parainfluenza 4 (PCR) RSV (PCR) Entero/Rhino (PCR) SARS-CoV-2 (PCR) 06/14/20 06/14/20 05:15 05:15 WBC 3.56 L RBC 3.89 L Hgb 11.1 L Hct 33.1 L MCV 85.1 MCH 28.5 MCHC 33.5 RDW Coeff of Juliana 14.7 Plt Count 104 L Immature Gran % (Auto) 0.3 Neut % (Auto) 58.1 Lymph % (Auto) 35.7 [place] % (Auto) 5.6 Eos % (Auto) 0.3 Baso % (Auto) 0.0 Neut # (Auto) 2.1 Lymph # (Auto) 1.3 [place] # (Auto) 0.2 L Eos # (Auto) 0.0 Baso # (Auto) 0.0 Immature Gran # (Auto) 0.0 PT INR APTT Puncture Site O2 Saturation ABG pH ABG pCO2 ABG pO2 ABG HCO3 ABG Total CO2 ABG Base Excess Tani Test FiO2 % Sodium 133.4 L Potassium 3.79 Chloride 101.9 Carbon Dioxide 22.6 Anion Gap 12.69 BUN 12.0 Creatinine 0.73 Estimated GFR (MDRD) 84.00 BUN/Creatinine Ratio 16.43 Glucose 399.9 H D Lactic Acid Calcium 7.88 L Total Bilirubin 0.48 AST 82.0 H ALT 33.7 Alkaline Phosphatase 134.7 H D Total Creatine Kinase Troponin I Total Protein 7.04 Albumin 3.42 L Globulin 3.62 Albumin/Globulin Ratio 0.94 Procalcitonin TSH D-Dimer Urine Color Urine Clarity Urine pH Ur Specific Letts Urine Protein Urine Glucose (UA) Urine Ketones Urine Blood Urine Nitrite Urine Bilirubin Urine Urobilinogen Ur Leukocyte Esterase Urine Microscopic RBC Ur Squamous Epith Cells Urine Bacteria Urine Mucus Adenovirus (PCR) B. pertussis DNA (PCR) B.parapertussis DNA PCR C. pneumoniae DNA (PCR) Coronavirus OC43 (PCR) Coronavirus HKU1 (PCR) Coronavirus 229E (PCR) Coronavirus NL63 (PCR) Human Metapneumovir PCR Influenza Type A (PCR) Influenza B (RT-PCR) M. pneumoniae (PCR) Parainfluenza 1 (PCR) Parainfluenza 2 (PCR) Parainfluenza 3 (PCR) Parainfluenza 4 (PCR) RSV (PCR) Entero/Rhino (PCR) SARS-CoV-2 (PCR) Orders Category Date Time Status PLACE PATIENT OBSERVATION .TO MEDSURG (MONITORED BED ADMISSION 06/14/20 00:14 Active ) ABG DRAW REQUEST Stat CARDIO 06/13/20 22:17 Completed EKG-(ED ONLY) Stat CARDIO 06/13/20 22:14 Completed EKG-(IP & OP ONLY) DAILY CARDIO 06/15/20 06:00 Ordered EKG-(IP & OP ONLY) DAILY CARDIO 06/16/20 06:00 Ordered METERED DOSE INHALATION Routine CARDIO 06/13/20 22:22 Active OXYGEN Routine CARDIO 06/14/20 00:22 Active ACTIVITY .BR with BRP CARE 06/14/20 00:19 Active BLOOD GLUCOSE MONITORING 0630,1100,1700,2100 CARE 06/14/20 00:23 Active INTAKE & OUTPUT Q8HR CARE 06/14/20 00:20 Active TELEMETRY MONITORING TELE CARE 06/14/20 00:14 Active VITAL SIGNS Q8HR CARE 06/14/20 00:20 Completed ADA 1800 [place]. DIET DIETARY 06/14/20 Breakfast Ordered HS SNACK DIETARY 06/14/20 Dinner Ordered ED IV/MEDIPORT/POWERPORT .ONCE EMERGENCY 06/13/20 22:14 Active ABG Stat LAB 06/13/20 22:14 Completed BLOOD CULTURE (ED ONLY) Stat LAB 06/13/20 22:50 Received C-REACTIVE PROTEIN Stat LAB 06/13/20 22:50 Received C-REACTIVE PROTEIN Stat LAB 06/14/20 06:49 Ordered CBC W/ AUTO DIFF DAILY@0600 LAB 06/14/20 05:15 Completed CBC W/ AUTO DIFF DAILY@0600 LAB 06/15/20 06:00 Ordered CBC W/ AUTO DIFF Stat LAB 06/13/20 22:50 Completed COMPREHENSIVE METABOLIC PANEL DAILY@0600 LAB 06/14/20 05:15 Completed COMPREHENSIVE METABOLIC PANEL DAILY@0600 LAB 06/15/20 06:00 Ordered COMPREHENSIVE METABOLIC PANEL Stat LAB 06/13/20 22:50 Completed CREATINE KINASE Stat LAB 06/13/20 22:50 Completed D-DIMER Stat LAB 06/13/20 22:50 Completed LACTIC ACID Stat LAB 06/13/20 22:50 Completed Lactic Acid Dehydrogenase Stat LAB 06/13/20 22:50 Received PARTIAL THROMBOPLASTIN TIME Stat LAB 06/13/20 22:50 Completed PROCALCITONIN Stat LAB 06/13/20 22:50 Completed PT WITH INR Stat LAB 06/13/20 22:50 Completed RESPIRATORY PANEL 2.1 (PCR) Stat LAB 06/13/20 22:45 Completed THYROID STIMULATING HORMONE Stat LAB 06/13/20 22:50 Completed TROPONIN I Stat LAB 06/13/20 22:50 Completed URINALYSIS C & S IF INDICATED Stat LAB 06/13/20 22:55 Completed 0.9 % Sodium Chloride [Saline Flush] MEDS 06/13/20 22:14 Active 1 syr IVF PRN PRN Acetaminophen [Tylenol] MEDS 06/13/20 22:14 Discontinued 1,000 mg PO ONCE STA Acetaminophen [Tylenol] MEDS 06/14/20 00:56 Active 500 mg PO Q4-6H PRN Albuterol Inhaler(with Spacer) [Ventolin Hfa (Per Puff- MEDS 06/13/20 22:19 Discontinued with Spacer)] 2 puff IH ONCE STA Albuterol Inhaler(with Spacer) [Ventolin Hfa (Per Puff- MEDS 06/14/20 00:45 Active with Spacer)] 2 puff IH Q4-6H PRN Buspirone HCl [Buspar] MEDS 06/14/20 09:00 Active 15 mg PO TID Carvedilol [Coreg] MEDS 06/14/20 09:00 Active 3.125 mg PO BID Dexamethasone Sod Phosphate [Decadron] MEDS 06/14/20 02:30 Active 6 mg IVP DAILY Dicyclomine HCl [Bentyl] MEDS 06/14/20 00:45 Active 10 mg PO TID PRN Enoxaparin Sodium [Lovenox] MEDS 06/14/20 00:30 Active 40 mg SUBCUT DAILY Furosemide [Lasix Tab] MEDS 06/14/20 09:00 Active 20 mg PO DAILY Gabapentin [Neurontin] MEDS 06/14/20 09:00 Active 200 mg PO BID Gabapentin [Neurontin] MEDS 06/14/20 12:00 Active 400 mg PO 1200 Gabapentin [Neurontin] MEDS 06/14/20 09:00 Active 600 mg PO BID Insulin Glargine,Hum.rec.anlog [Lantus] MEDS 06/14/20 07:00 Ordered 95 unit SUBCUT BID Levofloxacin/D5w [Levaquin 750 mg/150 ml D5w] MEDS 06/14/20 00:30 Active 750 mg in 150 ml IV DAILY Ondansetron [Zofran Odt] MEDS 06/14/20 00:45 Active 4 mg PO Q8H PRN Pantoprazole Sodium [Protonix] MEDS 06/14/20 06:30 Active 40 mg PO 0630 Piperacillin Sodium/Tazobactam [Zosyn 4.5 gm] 4.5 gm MEDS 06/13/20 22:49 Discontinued 0.9 % Sodium Chloride [Sodium Chloride] 100 ml IV ONCE Piperacillin Sodium/Tazobactam [Zosyn 4.5 gm] 4.5 gm MEDS 06/14/20 06:00 Active 0.9 % Sodium Chloride [Sodium Chloride] 100 ml IV Q6HR Remdesivir Solution [Remdesivir] 200 mg MEDS 06/14/20 00:30 Discontinued 0.9 % Sodium Chloride [Sodium Chloride] 210 ml IV ONCE Remdesivir Solution [Remdesivir] 200 mg MEDS 06/14/20 09:00 Pending 0.9 % Sodium Chloride [Sodium Chloride] 210 ml IV ONCE SODIUM CHLORIDE 0.9% @ 500 MLS/HR(500ml) MEDS 06/14/20 06:52 Ordered Sodium Chloride 0.9% [Sodium Chloride] 500 ml IV BOLUS Sodium Chloride 0.9% [Sodium Chloride] 1,000 ml MEDS 06/14/20 00:30 Active IV 115 mls/hr Sodium Chloride 0.9% [Sodium Chloride] 1,000 ml MEDS 06/13/20 22:19 Discontinued IV BOLUS Sodium Chloride 0.9% [Sodium Chloride] 1,000 ml MEDS 06/13/20 22:38 Di scontinued IV BOLUS RESUSCITATION STATUS Routine OTHERS 06/14/20 00:19 Ordered CHEST, 1V AP ONLY Stat RADS 06/13/20 22:19 Completed Medications Generic Name Dose Route Start Last Admin Trade Name Freq PRN Reason Stop Dose Admin Acetaminophen 500 mg 06/14/20 00:56 Acetaminophen 500 Mg Tablet PO Q4-6H PRN Fever >101 or pain Albuterol Sulfate 2 puff 06/14/20 00:45 Albuterol Sulfate (Ventolin Hfa) 18 Gm 1 Puff With Spacer IH Q4-6H PRN dyspnea Buspirone HCl 15 mg 06/14/20 09:00 Buspirone Hcl 10 Mg Tablet PO TID [facility] Carvedilol 3.125 mg 06/14/20 09:00 Carvedilol 3.125 Mg Tablet PO BID [facility] Dexamethasone Sodium Phosphate 6 mg 06/14/20 02:30 06/14/20 02:58 Dexamethasone Sod Phos 10 Mg/Ml Inj IVP 6 mg DAILY [facility] Administration Dicyclomine HCl 10 mg 06/14/20 00:45 Dicyclomine Hcl 10 Mg Capsule PO TID PRN Abdominal Pain Enoxaparin Sodium 40 mg 06/14/20 00:30 06/14/20 02:47 Enoxaparin Sodium 40 Mg/0.4 Ml Syr SUBCUT 40 mg DAILY [facility] Administration Furosemide 20 mg 06/14/20 09:00 Furosemide 20 Mg Tablet PO DAILY [facility] Gabapentin 600 mg 06/14/20 09:00 Gabapentin 300 Mg Capsule PO BID [facility] Gabapentin 400 mg 06/14/20 12:00 Gabapentin 100 Mg Capsule PO 1200 [facility] Gabapentin 200 mg 06/14/20 09:00 Gabapentin 100 Mg Capsule PO BID [facility] Sodium Chloride 1,000 mls @ 115 mls/hr 06/14/20 00:30 Sodium Chloride IV .Q8H42M [facility] Levofloxacin/Dextrose 750 mg in 150 mls @ 100 mls/hr 06/14/20 00:30 06/14/20 02:47 Levaquin 750 Mg/150 Ml D5w IV 06/17/20 00:29 100 mls/hr DAILY [facility] Administration Piperacillin Sod/Tazobactam 100 mls @ 100 mls/hr 06/14/20 06:00 06/14/20 05:15 Sod 4.5 gm/ Sodium Chloride IV 06/17/20 05:59 100 mls/hr Q6HR JUDAH Administration REMDESIVIR SOLUTION 200 mg/ 250 mls @ 125 mls/hr 06/14/20 09:00 Sodium Chloride IV 06/14/20 10:59 ONCE ONE Sodium Chloride 500 mls @ 500 mls/hr 06/14/20 06:52 Sodium Chloride IV 06/14/20 07:51 BOLUS STA Insulin Glargine 95 unit 06/14/20 07:00 Insulin Glargine,Hum.Rec.Anlog 100 Units/Ml SUBCUT BID JUDAH Ondansetron HCl 4 mg 06/14/20 00:45 Ondansetron Hcl 4 Mg Tab.Rapdis PO Q8H PRN Nausea / Vomiting Pantoprazole Sodium 40 mg 06/14/20 06:30 06/14/20 05:45 Pantoprazole Sodium 40 Mg Tablet.Dr PO 40 mg 0630 JUDAH Administration Sodium Chloride 1 syr 06/13/20 22:14 0.9% Sodium Chloride 10 Ml Disp.Syrin IVF PRN PRN To flush IV Discontinued Medications Generic Name Dose Route Start Last Admin Trade Name Freq PRN Reason Stop Dose Admin Acetaminophen 1,000 mg 06/13/20 22:14 06/13/20 22:40 Acetaminophen 500 Mg Tablet PO 06/13/20 22:15 1,000 mg ONCE STA Administration Albuterol Sulfate 2 puff 06/13/20 22:19 06/13/20 22:49 Albuterol Sulfate (Ventolin Hfa) 18 Gm 1 Puff With Spacer IH 06/13/20 22:20 2 puff ONCE STA Administration Sodium Chloride 1,000 mls @ 1,000 mls/hr 06/13/20 22:19 06/14/20 00:12 Sodium Chloride IV 06/13/20 23:18 Not Given BOLUS STA Sodium Chloride 1,000 mls @ 500 mls/hr 06/13/20 22:38 06/13/20 22:45 Sodium Chloride IV 06/14/20 00:18 500 mls/hr BOLUS STA Administration Piperacillin Sod/Tazobactam 100 mls @ 100 mls/hr 06/13/20 22:49 06/13/20 23:41 Sod 4.5 gm/ Sodium Chloride IV 06/13/20 23:48 100 mls/hr ONCE STA Administration REMDESIVIR SOLUTION 200 mg/ 250 mls @ 125 mls/hr 06/14/20 00:30 Sodium Chloride IV 06/14/20 02:29 ONCE ONE Assessment (1) COVID-19: Status: Acute Code(s): U07.1 - COVID-19 SNOMED Code(s): 696237733 (2) Pneumonia: Status: Acute Code(s): J18.9 - Pneumonia, unspecified organism SNOMED Code(s): 406405261 Qualifiers: Laterality: left Lung location: lower lobe of lung Pneumonia type: due to unspecified organism Qualified Code(s): J18.9 - Pneumonia, unspecified organism (3) Tachycardia: Status: Acute Code(s): R00.0 - Tachycardia, unspecified SNOMED Code(s): 8451304 (4) Hypotension: Status: Acute Code(s): I95.9 - Hypotension, unspecified SNOMED Code(s): 24575352 (5) 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), managed as type 2: Status: Acute Code(s): E13.9 - Other specified diabetes mellitus without complications SNOMED Code(s): 686438904 (6) Elevated LFTs: Status: Acute Code(s): R79.89 - Other specified abnormal findings of blood chemistry SNOMED Code(s): 257556840 (7) Diabetic neuropathy: Status: Acute Code(s): E11.40 - Type 2 diabetes mellitus with diabetic neuropathy, unspecified SNOMED Code(s): 875599753 (8) Hypertension: Status: Acute Code(s): I10 - Essential (primary) hypertension SNOMED Code(s): 88777592 (9) COPD (chronic obstructive pulmonary disease): Status: Acute Code(s): J44.9 - Chronic obstructive pulmonary disease, unspecified SNOMED Code(s): 85903323 (10) Hypothyroidism: Status: Acute Code(s): E03.9 - Hypothyroidism, unspecified SNOMED Code(s): 50734101 (11) Anxiety: Status: Acute Code(s): F41.9 - Anxiety disorder, unspecified SNOMED Code(s): 43055631 (12) Pancytopenia: Status: Acute Code(s): D61.818 - Other pancytopenia SNOMED Code(s): 310937647 (13) Cirrhosis of liver not due to alcohol: Status: None Code(s): K74.60 - Unspecified cirrhosis of liver SNOMED Code(s): 833251573 Plan Plan: COVID-19+ with SIRS/SEPSIS and concern for Pneumonia: 54 yr CF HD 1 w/ SARS-COV-2 + status. Concern LLL pneumonia. CURB 67 1 point low risk group 2.7% 30 day mortality based on pneumonia alone. However COVID+ as well. Worsening status for patient. Glucose poorly controlled, +Dehydration. Presented w/ fever, tachycardia, hypoxia, ABG 71% on RA. Today 06/14 is day 5 of her symptoms. Will cover her fever with Tylenol 500mg QID. We will add remdesivir per protocol. I have discussed at length with patient about steps should she worsen. WE discussed numerous treatments are seen as possibly helpful but this does not mean they are the best treatment/option for the patient. As an example some feel that VitC/VitD/Zinc/pepcid can help. There is no science that says they do at this point. Same with adding statins (already on one will continue it). Since we are using oxygen, admitting for her worsening symptoms, we will start steroids and remdesivir. I have asked that she contact her father to bring in her BIPAP and we will use this in negative pressure room overnight. We have discussed proning, position changes, we have discussed this disease process is dangerous and can have severe consequences. End of life planning discussed, discussed her wishes, she wants to be full code. She is scared. I noted she could not have visitors. Patient seen in room SCU 1 with full PPE. Reviewed her history, discussed with case with nursing, reviewed ED documents, labs, imaging. At present I feel she requires inpatient admission as she has worsened as outpatient unto requiring oxygen, steroids, infusion medications and known COVID +. The patient is agreeable to full admission. Discussed O2 and that patients do not tend to get o2 toxicity and discussed how proning can allow for reduced use of o2. It is good that her procalc and her lactic acid were negative and that Ddimer was negative. Still waiting on Ferritin and CRP. I may order DDIMER/Ferritin again in 48 hours. Based on her weight, we will continue fluids at 115ml/hour to cover for losses. 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 - Admit to inpatient service SCU1 w/ Telemetry. - Start remdesivir protocol - Dexamethasone 6mg IV daily. - Diet -ADA 1800 kcal - O2 to keep her in high 90s. Ideally ~98%. - Labs: - CBC/CMP q am. - Vit D 25 OH now - CRP (PENDING) - FERRITIN (PENDING) - A1C (Ordered Pending) - BC (PENDING) - Ionized calcium am of 06/15/20. - Fluids: - 115ml/hour NS - ABG: - Now on O2 - Imaging: No additional imaging ordered for now. - Antibiotics: - Zosyn 1 dose in ED (STOPPED) - Levaquin 750mg IV daily x 5 days to cover for pneumonia Tachycardia: Resolved now. Continue fluids/boluses to maintain MAP >65. Montior on tele. - Telemetry Hypotension: Bolus 500cc now. Stopped coreg for today. - Consider resuming coreg. Some think that treating patients like an NSTEMI is more protective. HAYLEY: Repeat A1C. Last checked was 7.61. She is 8.84 this am. 399 glucose this am. Resume lantus but increase from the 92 units BID to 95 units BID. Regular insulin to be used q 4 hours with sliding scale. Will adjust daily insulin up based on need for sliding scale each day. Goal 1 regularly <250 by 48 hours from now. Chronic poorly controlled DM. Working on outpatient control. DKA is not likely based on presentation but could go that way. Monitor K+. Monitor fluid status. +ROSINA Abs 07/2019. - Increase Lantus from 92 units BID to 95 units BID while on steroids. - Sliding scale regular insulin - Hold metformin/victoza. - Accucheck q 4 hours. Elevated LFT: Chronic, monitor. - Daily CMP Diabetic Neuropathy: Chronic process on gabapentin. We can continue this thro [facility] hospital stay. HTN: Chronic process, actually low in hospital. We discussed to hold coreg for the next 24 hours, hold Lasix as well, monitor BP. 90/52 at check on rounding. Bolus 500 cc. This is a MAP of 65 which is reasonable. However the patient has increase in Cr and reduction in GFR (still okay for now). - Hold coreg, monitor. - Hold Lasix, monitor. COPD: Chronic process, continue albuterol 2 puffs q 4 hours PRN. She is on decadron 6mg IV daily. - Chronic/monitor. - Continue albuterol - Steroids started Hypothyroid: Mild elevation of TSH. Will continue her home dose of levothyroxine, no changes for now. Anxiety: Chronic no changes to meds for now. Monitor. Pancytopenia: monocytes are decreased but so are hgb and plt. Will monitor. - Daily CBC Hypocalcemia: Corrects to just under normal. We will treat with oral calcium carbonate + D and use 2 tabs at lunch (several hours after PPI). I am aware calcium citrate is a better option. However, the hospital does not have any of this particular supplement. - Labs: - Ionized calcium in am - Vit D now - Calcium Carbonate + D 2 tabs daily at lunch DVT PROPHY: With negative Ddimer, Ferritin pending, low plt, I will use lovenox 40mg subcut daily. - Daily CBC - Await Ferritin - Monitor renal function, consider CTA chest Diet: ADA 1800kcal. Fluids: 115ml NS (NO K+ for now). Activity: - Up with assist due to dizziness - Nursing instructions Reviewed w/ nursing. Disposition: Expected length of stay 5 days. Discussed today oxygen, ABG, a1c/glucose control, BP control, COVID-19 and appropriate treatment. We have started remdesivir, oxygen, steroids. We discussed the above orders. I want O2 to continue unless >98%. I discussed proning/positional changes. I discussed monitor for worsening hypotension and to keep BP MAP >65. I discussed to monitor fluid overuse with goal to keep her somewhat dry. We reviewed her home meds. See back 06/15. Today >70minutes spent on rounding/orders/patient care.
[2020-06-14] MEDS ORDERED: HUMALOG SUBCUT STA (07:23)
[2020-06-14 08:14] LABS: ABG BASE EXCESS -2.5 (-2.0-2.0); ABG HCO3 21.7 (22.0-26.0); ABG PH 7.44 (7.35-7.45); ABG TCO2 22.7 (22.0-28.0)
[2020-06-14 08:15] LABS: ABG OXYGEN SATURATION 97.4 % (95-100)
[2020-06-14] MEDS: BUSPAR PO SCH ×3 (08:43→21:27)
[2020-06-14] MEDS: NEURONTIN PO SCH ×5 (08:44→21:29)
[2020-06-14] MEDS: LANTUS SUBCUT SCH ×3 (08:44→21:30)
[2020-06-14] MEDS: SODIUM CHLORIDE 1,000 ML IV SCH ×3 (08:49→21:32)
[2020-06-14] MEDS ORDERED: COREG PO SCH (09:00)
[2020-06-14] MEDS ORDERED: LASIX TAB PO SCH (09:00)
[2020-06-14] MEDS: ARTIFICIAL TEARS DROPS OP PRN (09:24)
[2020-06-14] MEDS: HUMALOG SUBCUT PRN ×3 (10:57→21:31)
[2020-06-14] MEDS ORDERED: CALCIUM 500 + VIT D 5 MCG (200 IU) TABLET PO SCH (12:00)
[2020-06-14] MEDS: VENTOLIN HFA (PER PUFF-WITH SPACER) IH PRN ×2 (15:43→20:13)
[2020-06-14] MEDS: LEVAQUIN 750 MG/150 ML D5W 750 MG/150 ML BAG IV SCH (21:30)
[2020-06-15] MEDS: VENTOLIN HFA (PER PUFF-WITH SPACER) IH PRN ×3 (03:50→20:30)
[2020-06-15 05:45] LABS: BASOPHILS % (AUTO) 0.2 % (0.0-3.0); HEMATOCRIT 32.5 % (37.0-47.0); HEMOGLOBIN 10.8 g/dl (12.0-16.0); IMMATURE GRANULOCYTE % (AUTO) 0.2 % (0.0-5.0); LYMPHOCYTES % (AUTO) 37.6 (10.0-50.0); MEAN CORPUSCULAR HEMOGLOBIN 28.7 pg (27.0-31.0); MEAN CORPUSCULAR HGB CONC 33.2 (31.8-35.4); MEAN CORPUSCULAR VOLUME 86.4 fl (81.0-99.0); MONOCYTES # (AUTO) 0.3 K/uL (0.4-2.0); MONOCYTES % (AUTO) 5.1 (0-10); NEUTROPHILS % (AUTO) 56.9 % (42.2-75.2); PLATELET COUNT 118 10^3/uL (140-440); RDW COEFFICIENT OF VARIATION 14.8 % (11.6-14.8); RED BLOOD COUNT 3.76 10^6/ul (4.20-5.40); WHITE BLOOD COUNT 5.29 K/ul (4.6-10.2)
[2020-06-15 05:57] LABS: PROTHROMBIN TIME 11.4 SEC (9.3-11.0)
[2020-06-15 06:02] LABS: ALANINE AMINOTRANSFERASE 26.8 U/L (0-35); ALBUMIN 3.44 g/dL (3.5-5.0); ALKALINE PHOSPHATASE 128.5 U/L (38-126); ASPARTATE AMINO TRANSFERASE 46.6 U/L (14-36); BILIRUBIN,TOTAL 0.3 mg/dL (0.2-1.3); BLOOD UREA NITROGEN 13.6 mg/dL (7-17); CALCIUM 8.45 mg/dL (8.4-10.2); CARBON DIOXIDE 23.6 mmol/L (22-30.0); CHLORIDE 108.1 mmol/L (98-107); CREATININE 0.52 mg/dL (0.60-1.30); GLUCOSE 159.6 mg/dL (74-106); POTASSIUM 3.43 mmol/L (3.5-5.1); SODIUM 139.6 mmol/L (134.5-145); TOTAL PROTEIN 7.18 g/dL (6.3-8.2)
[2020-06-15] MEDS: HUMALOG SUBCUT PRN ×2 (06:22→18:27)
[2020-06-15] MEDS: PROTONIX PO SCH (06:22)
--- NOTE | 2020-06-15 07:26 | PCM.PROG ---
Subjective: 54 yo CF HD #2, levaquin 750mg IV Day 2, Remdesivir Day 2, Decadron Day 2. COVID + status SIRS with SEPSIS concern for pneumonia/dehydration, pancytopenia, hypocalcemia. Fluids are currently running at 115 ml/hour based on her adjusted body weight. I+O overnight total intake 4541 in and 3741 out with balance of 800+. She had N/V/D and was a bit on the dry side. I will tolerate a slight increase in balance of <1L for 24-48 hours. She had #4 voids. Monitor for overhydration as patients tend to do better when on the sizing machine and drier operator side. I will back down to 115ml/hour only overnight, during the day I will saline lock the IV. BP remains on the lowr side most of the day yesterday but MAP stayed above 65. Her BB was held. Lasix was held. 94/62 by 1130 yesterday, 96/48 at 12, 92/58 at 1232, 101/57 at 1308 then normal 1543 at 117/69. She has been >100 SBP all but 1 reading (0136 was 96/62). This am 102/64. RR seems to be stable at 16-20. HR 60-68 (83 at 2110) throughout the day yesterday. Afebrile all day yesterday. She has maintained O2 at 95-100 yesterday on 2 L. Regarding DM Accuchecks were completed and 399, 393, 383, 210, 311, 338, 324, 206, 159. She is on remdesivir/steroid and I suspect steroidal effect. I increased her lantus to 95 BID from 92 BID yesterday. She received 6 units at 10am, 6 units at 1500, 8 units 2100 3 units at 0600 this am. Total of 17 units in 24 hours plus the additional 6 units BID to the lantus. I will increase her further to 100 units lantus BID. Continue sliding scale, monitor q 4 hour Accuchecks. Telemetry monitoring showed Sinus rhythm to sinus dhaval. WI 0.16 and qrs 0.08. AM labs reviewed: WBC has improved form 3.56 to 5.29, hgb 11.1 down to 10.8 and plt increased from 104 to 118K/ul. This is improved. INR 1.08 and stable. Repeat ABG done yesterday on O2 showed her PO2 increased from 71 to 92, her Hco3 dropped a little to 21.7 from 23.9. Her PCO2 increased a little from 30 to 32. pH has improved. She is still in Acute (uncompensated) primary respiratory alkalosis. CMP this am showed hypokalemia, which we will replace orally as tolerating liquids now. Her Creatinine is back to her baseline 0f ~0.52 and GFR 124. Her glucose was better this am. Calcium was normal again this am. Vit D was low at 20.3 so we will give her a 50,000 unit x 1. Stop Calcium supplement. FERRITIN AND CRP PENDING. BC pending. Called lab to check on the CRP (STILL PENDING). Ferritin was not completed. I have reordered ferritin. Additional Imaging: NONE Changes: Stop calcium, add Vit D 50,000 units weekly x 1 today. Treat further as an outpatient. Replace K+ orally. Stop fluids during day, resume at night at 100ml/hr. Increase lantus from 95 BID to 100 BID and continue lispro insulin q4 hours replacement. REVIEW OF SYMPTOMS: (Positives bolded) General: weight loss, fever (RESOLVED), chills (RESOLVED), night sweats, fatigue, appetite loss(IMPROVED) HEENT: blurry vision, eye pain, eye discharge, dry eyes, decreased vision, sore throat tinnitus, bloody nose, hearin gloss, sinus pain/pressure, ear pain/ pressure. Respiratory: shortness of breath, cough, hemoptysis, wheezing, pleurisy, Cardiovascular: chest pain, PND, palpitation, edema, orthopnea, syncope, swelling of extremities Gastro: Nausea (NOW RESOLVED), vomiting (NOW RESOLVED), diarrhea (NOW RESOLVED), hematemesis, abdominal pain, constipation Genito: hematuria, dysuria, glycosuria, hesitancy, frequency, incontinence Musckelo: Arthralgia, myalgia, muscle weakness, joint swelling, NSAID use Skin: rash, pruritis, sores, nail changes, skin thickening, change in wart/mole, itching, rash, new lesions, pruritus, nail changes Neuro: Migraine, numbness, ataxia, tremor, vertigo, weakness, memory loss, Irritability, dizziness Endocrine: excessive thirst, polyuria, cold intolerance, heat intolerance, goiter, +DM Insulin dependent Psychiatric: depression, anxiety, anti-depressants, alcohol abuse, drug abuse, insomnia, change in sleep pattern and mood changes Heme/lymph: easy bruising, bleeding gums, blood clots, swollen glands, lymphedema, thrombocytopenia. Allergic/immune: allergic rhinitis, hay fever, asthma, hives Objective: Vital Signs - 24 hr 06/14/20 08:00 06/14/20 10:00 06/14/20 11:00 Temperature 98.1 F 98.0 F Pulse Rate 60 60 Respiratory Rate 19 16 19 Blood Pressure 88/58 L 96/52 L O2 Sat by Pulse Oximetry 100 100 06/14/20 11:30 06/14/20 12:00 06/14/20 12:32 Temperature 98.0 F 98.0 F 98.0 F Pulse Rate 68 62 68 Respiratory Rate 19 16 16 Blood Pressure 94/62 96/58 L 92/58 L O2 Sat by Pulse Oximetry 100 100 98 06/14/20 13:08 06/14/20 14:00 06/14/20 15:43 Temperature 97.9 F 97.9 F Pulse Rate 62 68 Respiratory Rate 19 16 Blood Pressure 101/57 L 117/69 O2 Sat by Pulse Oximetry 97 97 95 06/14/20 18:00 06/14/20 21:10 06/15/20 01:36 Temperature 97.9 F 98 F 97.8 F Pulse Rate 68 83 60 Respiratory Rate 19 16 18 Blood Pressure 110/58 L 129/73 96/62 O2 Sat by Pulse Oximetry 95 95 95 06/15/20 06:00 Temperature 97.9 F Pulse Rate 60 Respiratory Rate 18 Blood Pressure 102/64 O2 Sat by Pulse Oximetry 98 Constitutional: Appearance- calm today RR now <20. No accessory muscle usage, no retractions. NO distress this am. Consistent with stated age. Orientation- Oriented x 3, alert Gait- In hospital bed. Build and Nutrition-Obese female General- Patient is pleasant and cooperative with the interview and exam. Integumentary: General-No rashes, ulcers or lesions. Palpation- Normal skin moisture/turgor. Skin is warm to touch, appropriate. Capillary refill is normal bilateral Upper and lower extremity. Head/Neck: Head- normocephalic and atraumatic. Neck- without visible/palpable lumps or pulsations. Palpation- No bony tenderness about head/neck along frontal, occipital, temporal, parietal, mastoid, jawline, zygoma, orbit or any other location. NO temporal artery tenderness. No TMJ tenderness. Neck Supple. Thyroid-No thyromegaly, no nodules Eye: Bilaterally PERRLA, EOMI. No discharge. Upper and lower eyelids are normal. Sclera/conjunctiva normal without discharge. Cornea is normal and clear. Lens is normal. Eyeball appears normal. No ciliary flushing, no conjunctival injection. ENMT: Nares- bilateral quiet airflow, no discharge. Nasal mucosa- No bleeding noted and no ulcerations observed. Pollard, moist. Turbinates non boggy. Lips- normal color, moist without cracks/lesions Oral Cavity/Palate- hard/soft palate intact without lesions, oral mucosa pink and moist. Tongue normal midline. Oropharynx- no pharyngeal erythema, Uvula midline. No post nasal drip. No exudate. Salivary glands- Non tender to palpation CHEST/LUNG: Inspection- symmetric chest wall no pectus deformity. no increased effort today, NO distress, no use of accessory muscles. Palpation- nontender sternum, ribline. No abnormal pulsations. Auscultation- Breath decreased, diminished effort throughout all lung mcdonald. tracheal sounds, bronchial sounds overlying sternum, Bronchovessicular sounds between scapulae posteriorly, vessicular breath sounds heard throughout periphery coarse. Lungs are mostly clear today scattered rhonchi. Adventitious sounds- No wheezes, rales, scattered rhonchi. Left lower lobe crackles. CARDIOVASCULAR: Palpation/Percussion- Normal PMI, no palpable thrill Auscultation- Regular rate and rhythm. No murmur noted in sitting, supine positions. Extremities- no digital clubbing, cyanosis, edema, increased warmth. ABDOMEN: Inspection- normal and no visible pulsations. Normal contour. Auscultation- Bowel sounds normal, no abdominal bruits. Palpation/Percussion- soft, non-tender, no rebound tenderness, no rigidity (guarding), no jar tenderness, no masses. Liver/spleen-no appreciable HSM. Peripheral Vascular: Upper extremity Left- Normal temperature with pink nailbeds and no ulcerations. Upper extremity Right- Normal temperature with pink nailbeds and no ulcerations. Lower extremity- Normal temperature with pink nailbeds and no ulcerations. DP pulses 2+ bilaterally. Pedal hair intact. Normal capillary refill. Edema- No edema. Musculoskeletal: Generalized-No generalized swelling or edema of extremities, no digital clubbing or cyanosis, neurovascularly intact all four extremities. Neurological: General- Moves all 4 extremities symmetrically. Symmetrical face and body posture. Strength- 5/5 bilateral UE and LE. Soft touch- intact bilateral UE and LE. Temperature sensation- intact bilateral UE and LE. Neuropsych: Oriented- Person, place, time. (AAOx3), Mood/affect- normal and congruent. Able to articulate well. Speech-Normal speech, normal rate, normal tone, normal use of language, volume and coherence. Thought content- normal with ability to perform basic computations and apply abstract thought/reason. Associations- intact, no SI/HI, no hallucinations, delusions, obsessions. Judgment/insight- Appropriate. Memory-Recall intact, remote and recent memory intact. Knowledge- Age appropriate fund of knowledge, concentration and attention span normal. Lymphatic: Head/Neck- normal size and non tender to palpation. Laboratory Results - last 24 hr 06/14/20 06/14/20 06/15/20 05:15 08:05 05:36 WBC 5.29 RBC 3.76 L Hgb 10.8 L Hct 32.5 L MCV 86.4 MCH 28.7 MCHC 33.2 RDW Coeff of Juliana 14.8 Plt Count 118 L Immature Gran % (Auto) 0.2 Neut % (Auto) 56.9 Lymph % (Auto) 37.6 Haywood % (Auto) 5.1 Eos % (Auto) 0.0 Baso % (Auto) 0.2 Neut # (Auto) 3.0 Lymph # (Auto) 2.0 Haywood # (Auto) 0.3 L Eos # (Auto) 0.0 Baso # (Auto) 0.0 Immature Gran # (Auto) 0.0 PT INR Puncture Site Lr O2 Saturation 97.4 ABG pH 7.44 ABG pCO2 32.0 L ABG pO2 92.0 ABG HCO3 21.7 L ABG Total CO2 22.7 ABG Base Excess -2.5 L Tani Test + O2 Delivery Device Nc Oxygen Liter Flow 2.00 Sodium Potassium Chloride Carbon Dioxide Anion Gap BUN Creatinine Estimated GFR (MDRD) BUN/Creatinine Ratio Glucose Calcium Total Bilirubin AST ALT Alkaline Phosphatase Total Protein Albumin Globulin Albumin/Globulin Ratio 25-OH Vitamin D Total 20.3 L 06/15/20 06/15/20 05:36 05:36 WBC RBC Hgb Hct MCV MCH MCHC RDW Coeff of Juliana Plt Count Immature Gran % (Auto) Neut % (Auto) Lymph % (Auto) Haywood % (Auto) Eos % (Auto) Baso % (Auto) Neut # (Auto) Lymph # (Auto) Haywood # (Auto) Eos # (Auto) Baso # (Auto) Immature Gran # (Auto) PT 11.4 H INR 1.08 Puncture Site O2 Saturation ABG pH ABG pCO2 ABG pO2 ABG HCO3 ABG Total CO2 ABG Base Excess Tani Test O2 Delivery Device Oxygen Liter Flow Sodium 139.6 Potassium 3.43 L Chloride 108.1 H Carbon Dioxide 23.6 Anion Gap 11.33 BUN 13.6 Creatinine 0.52 L Estimated GFR (MDRD) 124.00 BUN/Creatinine Ratio 26.15 Glucose 159.6 H Calcium 8.45 Total Bilirubin 0.30 AST 46.6 H D ALT 26.8 Alkaline Phosphatase 128.5 H Total Protein 7.18 Albumin 3.44 L Globulin 3.74 Albumin/Globulin Ratio 0.91 25-OH Vitamin D Total (1) COVID-19: Status: Acute Code(s): U07.1 - COVID-19 SNOMED Code(s): 493983463 (2) Pneumonia: Status: Acute Code(s): J18.9 - Pneumonia, unspecified organism SNOMED Code(s): 544614861 (3) Tachycardia: Status: Acute Code(s): R00.0 - Tachycardia, unspecified SNOMED Code(s): 2052445 (4) Hypotension: Status: Acute Code(s): I95.9 - Hypotension, unspecified SNOMED Code(s): 86700267 (5) 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), managed as type 2: Status: Acute Code(s): E13.9 - Other specified diabetes mellitus without complications SNOMED Code(s): 437763121 (6) Elevated LFTs: Status: Acute Code(s): R79.89 - Other specified abnormal findings of blood chemistry SNOMED Code(s): 213233171 (7) Diabetic neuropathy: Status: Acute Code(s): E11.40 - Type 2 diabetes mellitus with diabetic neuropathy, unspecified SNOMED Code(s): 451342615 (8) Hypertension: Status: Acute Code(s): I10 - Essential (primary) hypertension SNOMED Code(s): 03345263 (9) COPD (chronic obstructive pulmonary disease): Status: Acute Code(s): J44.9 - Chronic obstructive pulmonary disease, unspecified SNOMED Code(s): 91090981 (10) Hypothyroidism: Status: Acute Code(s): E03.9 - Hypothyroidism, unspecified SNOMED Code(s): 78276878 (11) Anxiety: Status: Acute Code(s): F41.9 - Anxiety disorder, unspecified SNOMED Code(s): 70524030 (12) Pancytopenia: Status: Acute Code(s): D61.818 - Other pancytopenia SNOMED Code(s): 318576999 (13) Cirrhosis of liver not due to alcohol: Status: None Code(s): K74.60 - Unspecified cirrhosis of liver SNOMED Code(s): 920664442 (14) Hypokalemia: Status: Acute Code(s): E87.6 - Hypokalemia SNOMED Code(s): 99981965 (15) Hypovitaminosis D: Status: Acute Code(s): E55.9 - Vitamin D deficiency, unspecified SNOMED Code(s): 36765493 Plan: COVID-19+ with SIRS/SEPSIS and concern for Pneumonia: 54 yr CF HD 2 w/ SARS-COV-2 + status. now HD Day #2. Levaquin 750mg IV Day #2/5, decadron 6mg 2/5, Remdesivir 2/. She is doing better, afebrile 24 hours. BP seems stable (low on auto but MAP >65 on manual). Presented w/ fever, tachycardia, hypoxia, ABG 71% on RA. We put her onto oxygen and she improved. ABG showed improved O2 significantly. She has been in the high 90's for pulse ox since that. Today 06/15 is day 6 of her symptoms. Will continue to cover her fever with Tylenol 500mg QID. We will continue remdesivir/decadron per protocol. We reviewed steps that may need to occur should she worsen. We will continue to use oxygen to keep her <98%. I have asked againn that she contact her father to bring in her BIPAP and we will use this in negative pressure room overnight. We discussed proning, position changes again, discussed OOB. She still has some di zziness. She wants to remain full code. She is scared but more upbeat today (7 churches praying for me). I noted she could not have visitors. Patient seen in room SCU 1 with full PPE again this am. Reviewed her history, discussed case with nursing, reviewed ED documents, labs, imaging. At present I feel she requires continnued inpatient admission. She is currently on oxgyen, IV steroids, infusion medications and known COVID +. The patient is agreeable to full admission. Discussed O2 and that patients do not tend to get o2 toxicity and discussed how proning can allow for reduced use of o2. Ferritin ordered today. Still waiting on CRP. Labs overall look better. We will decrease fluids to 100ml/hour overnight to cover for losses. I do not want to overhydrate as patients do better on the sizing machine and drier operator side. - Admit to inpatient service SCU1 w/ Telemetry. - Start remdesivir protocol Day 08/07 - Dexamethasone 6mg IV daily. 08/12 - Diet -ADA 1800 kcal - O2 to keep her in high 90s. Ideally ~98%. - Labs: - CBC/CMP q am. - CRP (PENDING) - FERRITIN (PENDING) REORDERED - BC (PENDING) - Fluids: - 100ml/hour NS overnight - ABG: - PRN symptoms - Imaging: No additional imaging ordered for now. - Antibiotics: - Levaquin 750mg IV daily x 5 days to cover for pneumonia DAY 08/07 Tachycardia: Resolved now. Continue fluids/boluses as above to maintain MAP >65. Montior on tele. - Telemetry Hypotension: Stopped coreg and lasix 06/14. Monitor. MAP >65. - Consider resuming coreg. Some think that treating patients like an NSTEMI is more protective. HAYLEY: Repeat A1C increased at 8.84 up from 7.61 02/12/20. Monitor glucose. increase from 95 BID lantus to 100 BID. Continue q 4 hours accuhecks. Continue ADA diet. - Increase Lantus from 95 units BID to 100 units BID while on steroids. - Sliding scale regular insulin - Hold metformin/victoza. - Accucheck q 4 hours. Elevated LFT: Chronic, monitor.Stable/improved compared to previous. Essentially normal today 06/15/20. - Daily CMP Diabetic Neuropathy: Chronic process on gabapentin. We can continue this t hrough hospital stay. HTN: Chronic process, actually on the lower side in the hospital> i have held her coreg, held lasix. Continue to monitor BP. MAP >65 is goal. 90/52 at check on rounding. Bolus 500 cc. This is a MAP of 65 which is reasonable. However the patient has increase in Cr and reduction in GFR (still okay for now). - Hold coreg, monitor. - Hold Lasix, monitor. COPD: Chronic process, continue albuterol 2 puffs q 4 hours PRN. She is on decadron 6mg IV daily. - Chronic/monitor. - Continue albuterol - Steroids started Hypothyroid: Mild elevation of TSH. Will continue her home dose of levothyroxine, no changes for now. Anxiety: Chronic no changes to meds for now. Monitor. Stable. Pancytopenia: Improving. WBC is normalized. Hgb is mildly low but close to her baseline from 1012/20. Platelets are better. - CBC daily. Hypocalcemia/hypovitaminosis D: Corrected with oral calcium. Stop this now. Hypovitaminosis D. Will add 50,000 units weekly and give today. - Vit D 50,000 units x 1. Hypokalemia: Low this am. at 3.43. Added oral K+cl- - 20meq BID with meals PO DVT PROPHY: With negative Ddimer, Ferritin pending, low plt, I will use lovenox 40mg subcut daily. - Daily CBC - Await Ferritin - Monitor renal function, consider CTA chest Diet: ADA 1800kcal. Fluids: 100mll NS (NO K+ for now). only overnight. - Maintain MAP >65. Activity: - Up with assist due to dizziness - Nursing instructions Reviewed w/ nursing. Disposition: Expected length of stay 4 more days. Assuming continnued course, plan for d/c after dose 5 of remdesivir on 06/18/20. We cannot complete outpatient infusion at this time due to +COVID status, hypoxia status, on O2, IV abx. We will conntinue oxygen, continue to monitor glucose while on steroids and maintain control, continue to monitor BP. She has known COVID-19 which has had significant complications nationally. She is on FDA appropriate treatment. We have started remdesivir now Day 08/07, oxygen via [place], steroids dexamethasone 6mg IV day 08/07. She is on IV abx for pneumonia Levaquin 750 IV day 08/07. We discussed the above orders. I want O2 to continue unless regularly >98%. I discussed proning/positional changes. I discussed monitor for worsening hypotension and to keep BP MAP >65. I discussed to monitor fluid overuse with goal to keep her somewhat dry. We reviewed her home meds. See back 06/16. Today >35 minutes spent on rounding/orders/patient care/donning+doffing PPE.
[2020-06-15] MEDS ORDERED: DRISDOL PO STA (07:43)
[2020-06-15] MEDS: SODIUM CHLORIDE 1,000 ML IV PRN ×2 (07:53→21:40)
[2020-06-15] MEDS: K-DUR PO SCH ×2 (08:33→17:13)
[2020-06-15] MEDS: DECADRON IVP SCH (08:33)
[2020-06-15] MEDS: BUSPAR PO SCH ×3 (08:34→21:35)
[2020-06-15] MEDS: NEURONTIN PO SCH ×5 (08:34→21:40)
[2020-06-15] MEDS: LOVENOX SUBCUT SCH (08:34)
[2020-06-15] MEDS: LANTUS SUBCUT SCH ×2 (08:35→21:41)
[2020-06-15] MEDS: SODIUM CHLORIDE 1,000 ML IV SCH (08:55)
[2020-06-15] MEDS: REMDESIVIR 100 MG in SODIUM CHLORIDE 230 ML IV SCH (11:32)
[2020-06-15] MEDS: ARTIFICIAL TEARS DROPS OP PRN (11:40)
[2020-06-15] MEDS ORDERED: XANAX PO ONE (13:15)
[2020-06-15] MEDS ORDERED: XANAX PO STA (14:49)
[2020-06-15] MEDS: TYLENOL PO PRN (18:26)
[2020-06-15] MEDS: XANAX PO PRN (21:40)
[2020-06-15] MEDS: LEVAQUIN 750 MG/150 ML D5W 750 MG/150 ML BAG IV SCH (21:41)
[2020-06-15] MEDS: NORCO 7.5-325 PO PRN (21:41)
[2020-06-16] MEDS: TYLENOL PO PRN (04:32)
[2020-06-16] MEDS: NORCO 7.5-325 PO PRN ×2 (04:32→09:39)
[2020-06-16 06:03] LABS: PROTHROMBIN TIME 11.6 SEC (9.3-11.0)
[2020-06-16] MEDS: PROTONIX PO SCH (06:37)
[2020-06-16 07:42] LABS: ALBUMIN 3.24 g/dL (3.5-5.0); ALKALINE PHOSPHATASE 120.6 U/L (38-126); ASPARTATE AMINO TRANSFERASE 44.3 U/L (14-36); BILIRUBIN,TOTAL 0.34 mg/dL (0.2-1.3); BLOOD UREA NITROGEN 9.4 mg/dL (7-17); CALCIUM 7.91 mg/dL (8.4-10.2); CARBON DIOXIDE 26.3 mmol/L (22-30.0); CHLORIDE 108.2 mmol/L (98-107); CREATININE 0.57 mg/dL (0.60-1.30); POTASSIUM 3.16 mmol/L (3.5-5.1); SODIUM 139.8 mmol/L (134.5-145); TOTAL PROTEIN 6.92 g/dL (6.3-8.2)
--- NOTE | 2020-06-16 07:50 | PCM.PROG ---
Subjective: Subjective: 54 yo CF HD #3, levaquin 750mg IV Day 09/04, Remdesivir Day 09/04, Decadron Day 09/09. COVID + status SIRS with SEPSIS concern for pneumonia/dehydration, pancytopenia (improving), hypocalcemia (resolved), hypokalemia (replacing), hypovitaminosis D (replacing). Fluids are currently running at 100 ml/hour only overnight. Despite the fluid reduction she is still a net 610ml up. She had 2 recorded voids. Meals reviewed and eating 100%. Total input 2310, total output 1700ml. It appears CBC was not repeated. I added this order back to the list. I will stop daily coags INNR 1.09 and PT 11.6. Ferritin was 47.70 and reasonable. CRP came back as 30 which is elevated. Blood cultures now negative at 2 days. She continues inpatient admission due to need for remdesivir and inability to get this as an outpatient. She will have completed 3/5 doses today. She will remain in hospital until 06/18 barring any changes. CBC/CMP tomorrow. No additional imaging today. I reviewed her vital signs. She did spike a fever yesterday up to 102.7 at 1800 and had a 100 at 0154 this am. She has tylenol on board. HR most of the day yesterday was nor mal, she was tachycardic at 1800 at 103 and this continued until 0154 and then resumed again this am at 0447 at 103. Her BP was normal most of the day yesterday, she was mildly elevated this am at 0447 at 141/80. I will continue to monitor this and resume home BP meds as her BP trends back up. RR has ranged from 16-22 with mode of 16. She has been on NC most of the hospital stay and remaining high 90's. Still dizzy with up and ambulating. I reviewed tele logs and she remains NSR. Regarding her DM: I increased her insulin lantus to 100 units BID. Humalog 3 units at 0600, 3 units at 1800/ G;icpse readomgs yesterday reveiwed 206, 159, 128, 138, 153, 130, 99, 118. She is well controlled now. Only a single reading <100. Better glycemic control than prior to admission. Reviewed notes from MARTÍNEZ Smith during day yesterday: Patient feeling better, still dizzy when standing up. WE had added 20meq K+CL- BID. Lantus changed as noted. 1307: Patient upset and crying. Worried about father. Chest tightness, anxiety increased, feeling worried. No N/V/D/C. She has no true chest pain. She feels hard to breath, sweaty. Nurse talked about anxiety. I was contacted talked to nursing and ordered xanax 1mg 1/2 tablet now repeat in 30 minutes if needed. Can repeat this BID PRN. Anxiety sx abated. Temp 102.7 last pm. She noted she felt bad, weak/flushed. Tylenol given. I was contacted last night ~2200 with patient having COPPOLA 8/10. Crying/anxious. I reminded team of the xanax and ordered norco 7.5 up to TID PRN. Monitor tylenol dose. At 22;40 she was comfortable. 0435 this am. COPPOLA 9/10. NOrco given. Tylenol 500 given as well. Afebrile this am. 0614 note: Patient has been proning, COPPOLA this am, fever last night. Changes: Await CMP that was ordered today. Replace K+ orally. Stop fluids during day, continue at night at 100ml/hr. Continue lantus from 100 BID and continue lispro insulin q4 hours replacement. 7:22 AM CMP was released. Sodium 139.8. K+ worse at 3.16. Will increase to 40meq/l BID and add K+ 10meq/L overnight with fluids starting tonight. Creatinine is stable. Glucose great at 106. Calcium 7.91. However this corrects to 8.5 based on albumin of 3.24. REVIEW OF SYMPTOMS: (Positives bolded) General: weight loss, fever , chills, night sweats, fatigue, appetite loss(IMPROVED) HEENT: blurry vision, eye pain, eye discharge, dry eyes, decreased vision, sore throat tinnitus, bloody nose, hearin gloss, sinus pain/pressure, ear pain/pressure. Respiratory: shortness of breath, cough, hemoptysis, wheezing, pleurisy, Cardiovascular: chest pain, PND, palpitation, edema, orthopnea, syncope, swelling of extremities Gastro: Nausea (NOW RESOLVED), vomiting (NOW RESOLVED), diarrhea (NOW RESOLVED), hematemesis, abdominal pain, constipation Genito: hematuria, dysuria, glycosuria, hesitancy, frequency, incontinence [place]ckelo: Arthralgia, myalgia, muscle weakness, joint swelling, NSAID use Skin: rash, pruritis, sores, nail changes, skin thickening, change in wart/mole, itching, rash, new lesions, pruritus, nail changes Neuro: Migraine, numbness, ataxia, tremor, vertigo, weakness, memory loss, Irritability, dizziness, +COPPOLA Endocrine: excessive thirst, polyuria, cold intolerance, heat intolerance, goiter, +DM Insulin dependent Psychiatric: depression, anxiety, anti-depressants, alcohol abuse, drug abuse, insomnia, change in sleep pattern and mood changes Heme/lymph: easy bruising, bleeding gums, blood clots, swollen glands, lymphedema, thrombocytopenia. Allergic/immune: allergic rhinitis, hay fever, asthma, hives Objective: Vital Signs - 24 hr 06/15/20 09:07 06/15/20 09:54 06/15/20 13:52 Temperature 97.7 F 97.3 F L Pulse Rate 77 82 Respiratory Rate 16 20 Blood Pressure 103/61 111/68 O2 Sat by Pulse Oximetry 98 96 97 06/15/20 14:00 06/15/20 18:00 06/15/20 20:00 Temperature 102.7 F H 98.7 F Pulse Rate 103 H 100 H Respiratory Rate 22 16 Blood Pressure 138/78 121/69 O2 Sat by Pulse Oximetry 96 94 L 94 L 06/15/20 22:00 06/16/20 00:00 06/16/20 01:54 Temperature 98.7 F 98.3 F 100 F H Pulse Rate 100 H 87 Respiratory Rate 16 16 Blood Pressure 121/69 114/48 L O2 Sat by Pulse Oximetry 94 L 96 96 06/16/20 04:47 06/16/20 06:00 Temperature 98.5 F Pulse Rate 103 H Respiratory Rate 20 Blood Pressure 141/80 H O2 Sat by Pulse Oximetry 95 98 Constitutional: Appearance- calm today RR now <20. No accessory muscle usage, no retractions. NO distress this am. Consistent with stated age. Orientation- Oriented x 3, alert Gait- In hospital bed. Build and Nutrition-Obese female General- Patient is pleasant and cooperative with the interview and exam. Integumentary: General-No rashes, ulcers or lesions. Palpation- Normal skin moisture/turgor. Skin is warm to touch, appropriate. Capillary refill is normal bilateral Upper and lower extremity. Head/Neck: Head- normocephalic and atraumatic. Neck- without visible/palpable lumps or pulsations. Palpation- No bony tenderness about head/neck along frontal, occipital, temporal, parietal, mastoid, jawline, zygoma, orbit or any other location. NO temporal artery tenderness. No TMJ tenderness. Neck Supple. Thyroid-No thyromegaly, no nodules Eye: Bilaterally PERRLA, EOMI. No discharge. Upper and lower eyelids are normal. Sclera/conjunctiva normal without discharge. Cornea is normal and clear. Lens is normal. Eyeball appears normal. No ciliary flushing, no conjunctival injection. ENMT: Nares- bilateral quiet airflow, no discharge. Nasal mucosa- No bleeding noted and no ulcerations observed. [place], moist. Turbinates non boggy. Lips- normal color, moist without cracks/lesions Oral Cavity/Palate- hard/soft palate intact without lesions, oral mucosa pink and moist. Tongue normal midline. Oropharynx- no pharyngeal erythema, Uvula midline. No post nasal drip. No exudate. Salivary glands- Non tender to palpation CHEST/LUNG: Inspection- symmetric chest wall no pectus deformity. no increased effort today, NO distress, no use of accessory muscles. Palpation- nontender sternum, ribline. No abnormal pulsations. Auscultation- Breath decreased, diminished effort throughout all lung mcdonald. tracheal sounds, bronchial sounds overlying sternum, Bronchovessicular sounds between scapulae posteriorly, vessicular breath sounds heard throughout periphery coarse. Lungs are mostly clear today scattered rhonchi. Adventitious sounds- No wheezes, rales, scattered rhonchi. CARDIOVASCULAR: Palpation/Percussion- Normal PMI, no palpable thrill Auscultation- Regular rate and rhythm. No murmur noted in sitting, supine positions. Extremities- no digital clubbing, cyanosis, edema, increased warmth. ABDOMEN: Inspection- normal and no visible pulsations. Normal contour. Auscultation- Bowel sounds normal, no abdominal bruits. Palpation/Percussion- soft, non-tender, no rebound tenderness, no rigidity (guarding), no jar tenderness, no masses. Liver/spleen-no appreciable HSM. Peripheral Vascular: Upper extremity Left- Normal temperature with pink nailbeds and no ulcerations. Upper extremity Right- Normal temperature with pink nailbeds and no ulcerations. Lower extremity- Normal temperature with pink nailbeds and no ulcerations. DP pulses 2+ bilaterally. Pedal hair intact. Normal capillary refill. Edema- No edema. Musculoskeletal: Generalized-No generalized swelling or edema of extremities, no digital clubbing or cyanosis, neurovascularly intact all four extremities. Neurological: General- Moves all 4 extremities symmetrically. Symmetrical face and body posture. Strength- 5/5 bilateral UE and LE. Soft touch- intact bilateral UE and LE. Temperature sensation- intact bilateral UE and LE. Neuropsych: Oriented- Person, place, time. (AAOx3), Mood/affect- normal and congruent. Able to articulate well. Speech-Normal speech, normal rate, normal tone, normal use of language, volume and coherence. Thought content- normal with ability to perform basic computations and apply abstract thought/reason. Associations- intact, no SI/HI, no hallucinations, delusions, obsessions. Judgment/insight- Appropriate. Memory-Recall intact, remote and recent memory intact. Knowledge- Age appropriate fund of knowledge, concentration and attention span normal. Lymphatic: Head/Neck- normal size and non tender to palpation. Laboratory Results - last 24 hr 06/13/20 06/13/20 06/15/20 22:50 22:50 05:36 PT INR Sodium Potassium Chloride Carbon Dioxide Anion Gap BUN Creatinine Estimated GFR (MDRD) BUN/Creatinine Ratio Glucose Calcium Ferritin 47.70 Total Bilirubin AST ALT Alkaline Phosphatase Lactate Dehydrogenase 208 C-Reactive Prot, Quant 30 H Total Protein Albumin Globulin Albumin/Globulin Ratio 06/16/20 06/16/20 05:35 07:22 PT 11.6 H INR 1.09 Sodium 139.8 Potassium 3.16 L Chloride 108.2 H Carbon Dioxide 26.3 Anion Gap 8.46 BUN 9.4 Creatinine 0.57 L Estimated GFR (MDRD) 111.00 BUN/Creatinine Ratio 16.49 Glucose 106.0 Calcium 7.91 L Ferritin Total Bilirubin 0.34 AST 44.3 H ALT 21.0 Alkaline Phosphatase 120.6 Lactate Dehydrogenase C-Reactive Prot, Quant Total Protein 6.92 Albumin 3.24 L Globulin 3.68 Albumin/Globulin Ratio 0.88 (1) COVID-19: Status: Acute Code(s): U07.1 - COVID-19 SNOMED Code(s): 147685632 (2) Pneumonia: Status: Acute Code(s): J18.9 - Pneumonia, unspecified organism SNOMED Code(s): 097249017 (3) Tachycardia: Status: Acute Code(s): R00.0 - Tachycardia, unspecified SNOMED Code(s): 8562971 (4) Hypotension: Status: Acute Code(s): I95.9 - Hypotension, unspecified SNOMED Code(s): 32490566 (5) 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), managed as type 2: Status: Acute Code(s): E13.9 - Other specified diabetes mellitus without complications SNOMED Code(s): 899562160 (6) Elevated LFTs: Status: Acute Code(s): R79.89 - Other specified abnormal findings of blood chemistry SNOMED Code(s): 414236571 (7) Diabetic neuropathy: Status: Acute Code(s): E11.40 - Type 2 diabetes mellitus with diabetic neuropathy, unspecified SNOMED Code(s): 553607472 (8) Hypertension: Status: Acute Code(s): I10 - Essential (primary) hypertension SNOMED Code(s): 68340789 (9) COPD (chronic obstructive pulmonary disease): Status: Acute Code(s): J44.9 - Chronic obstructive pulmonary disease, unspecified SNOMED Code(s): 53543912 (10) Hypothyroidism: Status: Acute Code(s): E03.9 - Hypothyroidism, unspecified SNOMED Code(s): 58882284 (11) Anxiety: Status: Acute Code(s): F41.9 - Anxiety disorder, unspecified SNOMED Code(s): 30683779 (12) Pancytopenia: Status: Acute Code(s): D61.818 - Other pancytopenia SNOMED Code(s): 150900808 (13) Cirrhosis of liver not due to alcohol: Status: None Code(s): K74.60 - Unspecified cirrhosis of liver SNOMED Code(s): 618508463 Plan: COVID-19+ with SIRS/SEPSIS and concern for Pneumonia: 54 yr CF w/ SARS-COV-2 + status. now HD Day #3. Levaquin 750mg IV Day #3/, decadron 6mg 09/04, Remdesivir 09/04. She is doing better, has had fever yesterday. BP seems stable and better now. Still off lasix and coreg. IF BP starts to increase may resume these. She has been doing well on o2 satting >95% most of the time. Today 06/16 is day 7 of her symptoms. Will continue to cover her fever with Tylenol 500mg QID. She has had COPPOLA last night started [place] 7.5 up to TID. This did help last night. Xanax was started for her anxiety. We will continue remdesivir/decadron per protocol. We reviewed steps that may need to occur should she worsen. We will continue to use oxygen to keep her <98%. I have asked again that she contact her father to bring in her BIPAP and we will use this in negative pressure room overnight. We again discussed proning, position changes again, discussed OOB. She still has some dizziness, COPPOLA that comes and goes. She wants to remain full code. She is scared and anxious for her health and her fathers. She did spike a fever last night, which worsened her COPPOLA. Patient seen in room SCU 1 with full PPE again this am. Reviewed her history, discussed case with nursing, reviewed labs, telemetry. At present I feel she requires continued inpatient admission. She is currently on oxgyen, IV steroids, infusion medications and known COVID +. The patient is agreeable to full admission. Discussed O2 and that patients do not tend to get o2 toxicity and discussed how proning can allow for reduced use of o2. Ferritin returned okay. CRP was elevated at 30. On abx, on steroids. Labs overall look stable except low K+. Repeat CBC/CMP tomorrow. We will continue fluids to 100ml/hour overnight w/ 10meq K+cl added to cover for losses. 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 - Admit to inpatient service SCU1 w/ Telemetry. - Continue remdesivir protocol Day 09/04 - Dexamethasone 6mg IV daily. 09/09 - Diet -ADA 1800 kcal - O2 to keep her in high 90s. Ideally ~98%. - Labs: - CBC/CMP q am. - BC Negative x 2 days - Fluids: - 100ml/hour NS overnight + 10 meq K+CL- - ABG: - PRN symptoms - Imaging: No additional imaging ordered for now. - Antibiotics: - Levaquin 750mg IV daily x 5 days to cover for pneumonia DAY 3 Tachycardia: Seems to be mostly reviewed. Pain response likely for some of these. Continue fluids/boluses as above to maintain MAP >65. Monitor on tele. - Telemetry Hypotension: Continue to hold coreg and lasix 06/16. Monitor. MAP >65. Stable/improving. - Consider resuming coreg. Some think that treating patients like an NSTEMI is more protective. HAYLEY: Repeat A1C increased at 8.84 up from 7.61 02/12/20. Monitor glucose. increased from 92 BID at admit to 95 BID lantus 06/15 to 100 units BID on 06/16. Continue q 4 hours accuhecks. Continue ADA diet. - Continue Lantus at 100units BID - Sliding scale regular insulin - Hold metformin/victoza. - Accucheck q 4 hours. Elevated LFT: Chronic, monitor.Stable/improved compared to previous. Essentially normal today 06/15/20. - Daily CMP Diabetic Neuropathy: Chronic process on gabapentin. We can continue this through hospital stay. HTN: Chronic process, actually on the lower side in the hospital> i have held her coreg, held lasix. Continue to monitor BP. MAP >65 is goal. Stable. Monitor for return of elevated pressures. Resume COREG if elevated. - Hold coreg, monitor. - Hold Lasix, monitor. COPD: Chronic process, continue albuterol 2 puffs q 4 hours PRN. She is on decadron 6mg IV daily. - Chronic/monitor. - Continue albuterol - Steroids started Hypothyroid: Mild elevation of TSH. Will continue her home dose of levothyroxine, no changes for now. Anxiety: Chronic no changes to meds for now. Monitor. Stable. Pancytopenia: No CBC this am. Repeat for 06/17/20. Improving. WBC is normalized. Hgb is mildly low but close to her baseline from 1012/20. Platelets are better. - CBC daily. Hypocalcemia/hypovitaminosis D: Corrected with oral calcium. Pseudohypocalcemia today. Stable. Corrects to normal. Vit D50K units x 1 yesterday. - Vit D 50,000 units x 1. Hypokalemia: Lower this am. Added oral K+cl- yesterday 20 BID. Will increase to 40BID, add to overnight fluids. Will also check mg++. - 40meq BID with meals PO - Added mg++ DVT PROPHY: With negative Ddimer, Ferritin pending, low plt, I will use lovenox 40mg subcut daily. Diet: ADA 1800kcal. Fluids: 100mll NS K+ 10meq added for overnight. - Maintain MAP >65. Activity: - Up with assist due to dizziness - Nursing instructions Reviewed w/ nursing. Disposition: Expected length of stay through 06/18. Assuming continued course, plan for d/c after dose 5 of remdesivir on 06/18/20. We cannot complete outpatient infusion at this time due to +COVID status, she continues with IV abx. We will continue oxygen, continue to monitor glucose while on steroids and maintain control, continue to monitor BP. She has known COVID-19 which has had significant complications nationally. She is on FDA appropriate treatment. We have started remdesivir now Day 09/04, oxygen via NC, steroids dexamethasone 6mg IV day 09/09. She is on IV abx for pneumonia Levaquin 750 IV day 09/04. We discussed the above orders. I want O2 to continue unless regularly >98%. I discussed proning/positional changes. I discussed monitor for worsening hypotension and to keep BP MAP >65. I discussed to monitor fluid overuse with goal to keep her somewhat dry. 2 days in a row +fluid balance. Fluids overnight only. I may resume lasix if her BP supports this. We reviewed her home meds. See back 06/17. Today >35 minutes spent on rounding/orders/patient care/donning+doffing PPE.
[2020-06-16] MEDS: BUSPAR PO SCH ×3 (09:39→21:33)
[2020-06-16] MEDS: NEURONTIN PO SCH ×5 (09:41→21:32)
[2020-06-16] MEDS: DECADRON IVP SCH (09:42)
[2020-06-16] MEDS: K-DUR PO SCH ×2 (09:42→17:42)
[2020-06-16] MEDS: LOVENOX SUBCUT SCH (09:59)
[2020-06-16] MEDS: LANTUS SUBCUT SCH ×2 (10:01→22:02)
[2020-06-16] MEDS: REMDESIVIR 100 MG in SODIUM CHLORIDE 230 ML IV SCH (14:15)
[2020-06-16] MEDS: HUMALOG SUBCUT PRN ×2 (18:00→22:05)
[2020-06-16] MEDS ORDERED: POTASSIUM CHLORIDE 10 MEQ VIAL- ADDITIVE ONLY 10 MEQ in SODIUM CHLORIDE 1,000 ML IV ONE (21:00)
[2020-06-16] MEDS ORDERED: POTASSIUM CHLORIDE 10 MEQ VIAL- ADDITIVE ONLY IV ONE (21:18)
[2020-06-16] MEDS: LEVAQUIN 750 MG/150 ML D5W 750 MG/150 ML BAG IV SCH (21:25)
[2020-06-17] MEDS: NORCO 7.5-325 PO PRN ×2 (01:10→17:16)
[2020-06-17] MEDS: HUMALOG SUBCUT PRN ×5 (02:03→22:22)
[2020-06-17] MEDS: PROTONIX PO SCH (06:15)
[2020-06-17 06:20] LABS: ALANINE AMINOTRANSFERASE 18.6 U/L (0-35); ALBUMIN 3.18 g/dL (3.5-5.0); ALKALINE PHOSPHATASE 127.2 U/L (38-126); ASPARTATE AMINO TRANSFERASE 34.9 U/L (14-36); BILIRUBIN,TOTAL 0.35 mg/dL (0.2-1.3); BLOOD UREA NITROGEN 17.2 mg/dL (7-17); CALCIUM 8.15 mg/dL (8.4-10.2); CARBON DIOXIDE 23.9 mmol/L (22-30.0); CHLORIDE 109.5 mmol/L (98-107); CREATININE 0.49 mg/dL (0.60-1.30); GLUCOSE 258.6 mg/dL (74-106); POTASSIUM 4.59 mmol/L (3.5-5.1); SODIUM 137.8 mmol/L (134.5-145); TOTAL PROTEIN 6.84 g/dL (6.3-8.2)
[2020-06-17 06:33] LABS: HEMATOCRIT 31.7 % (37.0-47.0); HEMOGLOBIN 10.7 g/dl (12.0-16.0); IMMATURE GRANULOCYTE % (AUTO) 0.2 % (0.0-5.0); LYMPHOCYTES # (AUTO) 1.3 K/uL (0.60-3.4); LYMPHOCYTES % (AUTO) 33.1 (10.0-50.0); MEAN CORPUSCULAR HEMOGLOBIN 29.1 pg (27.0-31.0); MEAN CORPUSCULAR HGB CONC 33.8 (31.8-35.4); MEAN CORPUSCULAR VOLUME 86.1 fl (81.0-99.0); MONOCYTES # (AUTO) 0.2 K/uL (0.4-2.0); MONOCYTES % (AUTO) 5.5 (0-10); NEUTROPHILS # (AUTO) 2.5 K/ul (2.0-6.9); NEUTROPHILS % (AUTO) 61.2 % (42.2-75.2); RDW COEFFICIENT OF VARIATION 15.2 % (11.6-14.8); RED BLOOD COUNT 3.68 10^6/ul (4.20-5.40); WHITE BLOOD COUNT 4.02 K/ul (4.6-10.2)
[2020-06-17 06:39] LABS: PLATELET COUNT 112 10^3/uL (140-440)
--- NOTE | 2020-06-17 07:32 | PCM.PROG ---
Subjective: 54 yo CF HD #4, levaquin 750mg IV Day 10/05, Remdesivir Day 10/05, Decadron Day 10/10. COVID + status admitted SIRS with SEPSIS concern for pneumonia/dehydration, pancytopenia (improving), hypocalcemia (resolved), hypokalemia (replacing), hypovitaminosis D (replacing). Fluids are currently running at 100 ml/hour overnight with 10meq K+Cl-. I+O reviewed in last 24 hours 2076 intake 1600 out balance of 477. She had 4 voids yesterday and already 1 today. This is the third day that we have had a net positive. They have recorded a single void and no BM. I will have them weigh her today. Blood sugars 06/15 were much better controlled. Yesterday 118, 118, 244, 375, 424, 326, 236. Flowsheet was reviewed 8 units 1800. These were higher than the justin or day. Review of vitals shows she was afebrile entire day for 06/16 (fever was present on 06/15). BB has been held. She has been bradycardic overnight. Blood pressure is low again after being normal most of the day yesterday. I have held her BP meds. Her MAP is below 65 at this time at 90/44. RR seems stable at 16-18 over last 24 hours. O2 94-97% on 1L NC. Tele showed she has had Sinus dhaval, sinus rhythm throughout the stay. Pancytopenia remains. CBC this am showed WBC 4.02, hgb 10.7, plt 112. This is not much different than yesterday. Differential shows a mild reduction in mono# else normal. CMP this am showed improved hypokalemia. She had sodium 137.8, K+ 4.59, creatinine 0.49, glucose elevated at 258.6. Calcium seems stable and corrects to 8.8. Magnesium yesterday was 1.71 and WNL. Patient liver enzymes are WNL. Nursing notes reviewed. Patient noted COPPOLA at 0939 yesterday and had norco ordered by me. This was given for COPPOLA of 02/09. Pronin regularly. at 1108. Dry cough. COPPOLA, photophobia. Afebrile, saline locked. Nausea with breakfast, zofran given. Sleeping at 12:16. COPPOLA improved. Low BP 83/53. 2256 COPPOLA 3/10. SOA with activity. This am at 0600 BP remains low but patient asymptomatic. I will increase her lantus from 100 BID to 105BID, continue sliding scale as she had several elevated readings yesterday >300. With the bradycardia, diaphoresis, dyspnea, return of the fever, hypotension, nausea, and likely COPPOLA. I am concerned for hypersensitivity reaction. I have stopped the remdesivir. Patient was re-evaluated again by me at 1445 06/17/20. Lactic acid was 1.54. BNP was 160. CXR shows multifocal bilateral pneumonia. I have ordered a Troponin as well. Afater concern for hypersensitivity reaction, I have bolused and I have stopped the remdesivir. I checked on her again at 1545 and she had a shower, HR 70-80. BP 100/70 and she was feeling much better. No pressors were used. Remdesivir hypersensitivity reaction likely. Troponin negative. I do not suspect cardiomyopathy based on presentation, rather I suspect that she has reaction to the remdesivir. REVIEW OF SYMPTOMS: (Positives bolded) General: weight loss, fever , chills, night sweats, fatigue, appetite loss, Diaphoresis worse at night, HEENT: blurry vision, eye pain, eye discharge, dry eyes, decreased vision, sore throat tinnitus, bloody nose, hearin gloss, sinus pain/pressure, ear pain/pressure. Respiratory: shortness of breath, cough, hemoptysis, wheezing, pleurisy, Cardiovascular: chest pain, PND, palpitation, edema, orthopnea, syncope, swelling of extremities Gastro: Nausea (NOW RESOLVED), vomiting (NOW RESOLVED), diarrhea (NOW RESOLVED), hematemesis, abdominal pain, constipation Genito: hematuria, dysuria, glycosuria, hesitancy, frequency, incontinence [place]ckelo: Arthralgia, myalgia, muscle weakness, joint swelling, NSAID use Skin: rash, pruritis, sores, nail changes, skin thickening, change in wart/mole, itching, rash, new lesions, pruritus, nail changes Neuro: Migraine, numbness, ataxia, tremor, vertigo, weakness, memory loss, Irritability, dizziness, +COPPOLA Endocrine: excessive thirst, polyuria, cold intolerance, heat intolerance, goiter, +DM Insulin dependent Psychiatric: depression, anxiety, anti-depressants, alcohol abuse, drug abuse, insomnia, change in sleep pattern and mood changes Heme/lymph: easy bruising, bleeding gums, blood clots, swollen glands, lymphedema, thrombocytopenia. Allergic/immune: allergic rhinitis, hay fever, asthma, hives Objective: Vital Signs - 24 hr 06/16/20 18:00 06/16/20 20:00 06/16/20 22:00 Temperature 97.5 F L 97.6 F Pulse Rate 62 55 L Respiratory Rate 16 18 16 Blood Pressure 84/50 L 92/48 L O2 Sat by Pulse Oximetry 95 96 96 06/17/20 01:55 06/17/20 05:44 06/17/20 06:00 Temperature 97.6 F 97.6 F Pulse Rate 48 L 50 L Respiratory Rate 16 16 Blood Pressure 90/50 L 90/44 L O2 Sat by Pulse Oximetry 94 L 95 96 06/17/20 07:00 06/17/20 07:30 06/17/20 08:00 Temperature Pulse Rate 42 L 43 L 50 L Respiratory Rate 18 18 Blood Pressure 96/48 L 89/41 L 81/47 L O2 Sat by Pulse Oximetry 06/17/20 08:30 06/17/20 09:00 06/17/20 10:00 Temperature 97.7 F Pulse Rate 43 L 52 L 48 L Respiratory Rate 20 18 18 Blood Pressure 93/55 L 97/59 L 92/55 L O2 Sat by Pulse Oximetry 97 06/17/20 14:00 Temperature Pulse Rate Respiratory Rate Blood Pressure 103/47 L O2 Sat by Pulse Oximetry 94 L Constitutional: Appearance- calm today talking on phone, laying in left lateral decub position. No visible accessory muscle use. no retractions. NO distress again this am. Consistent with stated age. Orientation- Oriented x 3, alert Gait- In hospital bed. Build and Nutrition-Obese female General- Patient is pleasant and cooperative with the interview and exam. Integumentary: General-No rashes, ulcers or lesions. Palpation- Normal skin moisture/turgor. Skin is warm to touch, appropriate. Capillary refill is normal bilateral Upper and lower extremity. NO edema bilateral legs/shins. Head/Neck: Head- normocephalic and atraumatic. Neck- without visible/palpable lumps or pulsations. Palpation- No bony tenderness about head/neck along frontal, occipital, temporal, parietal, mastoid, jawline, zygoma, orbit or any other location. NO temporal artery tenderness. No TMJ tenderness. Neck Supple. Thyroid-No thyromegaly, no nodules Eye: Bilaterally PERRLA, EOMI. No discharge. Upper and lower eyelids are normal. Sclera/conjunctiva normal without discharge. Cornea is normal and clear. Lens is normal. Eyeball appears normal. No ciliary flushing, no conjunctival injection. ENMT: Nares- bilateral quiet airflow, no discharge. Nasal mucosa- No bleeding noted and no ulcerations observed. [place], moist. Turbinates non boggy. Lips- normal color, moist without cracks/lesions Oral Cavity/Palate- hard/soft palate intact without lesions, oral mucosa pink and moist. Tongue normal midline. Oropharynx- no pharyngeal erythema, Uvula midline. No post nasal drip. No exudate. Salivary glands- Non tender to palpation CHEST/LUNG: Inspection- symmetric chest wall no pectus deformity. no increased effort today, NO distress, no use of accessory muscles. Palpation- nontender sternum, ribline. No abnormal pulsations. Auscultation- Breath decreased, diminished effort throughout all lung mcdonald. tracheal sounds, bronchial sounds overlying sternum, Bronchovessicular sounds between scapulae posteriorly, vessicular breath sounds heard throughout periphery coarse. Lungs are mostly clear today scattered rhonchi. Adventitious sounds- No wheezes, rales, scattered rhonchi. CARDIOVASCULAR: Palpation/Percussion- Normal PMI, no palpable thrill Auscultation- Bradycardia and sinus rhythm. No murmur noted in sitting, supine positions. Extremities- no digital clubbing, cyanosis, edema, increased warmth. ABDOMEN: Inspection- normal and no visible pulsations. Normal contour. Auscultation- Bowel sounds normal, no abdominal bruits. Palpation/Percussion- soft, non-tender, no rebound tenderness, no rigidity (guarding), no jar tenderness, no masses. Liver/spleen-no appreciable HSM. Peripheral Vascular: Upper extremity Left- Normal temperature with pink nailbeds and no ulcerations. Upper extremity Right- Normal temperature with pink nailbeds and no ulcerations. Lower extremity- Normal temperature with pink nailbeds and no ulcerations. DP pulses 2+ bilaterally. Pedal hair intact. Normal capillary refill. Edema- No edema. Musculoskeletal: Generalized-No generalized swelling or edema of extremities, no digital clubbing or cyanosis, neurovascularly intact all four extremities. Neurological: General- Moves all 4 extremities symmetrically. Symmetrical face and body posture. Strength- 5/5 bilateral UE and LE. Soft touch- intact bilateral UE and LE. Temperature sensation- intact bilateral UE and LE. Neuropsych: Oriented- Person, place, time. (AAOx3), Mood/affect- normal and congruent. Able to articulate well. Speech-Normal speech, normal rate, normal tone, normal use of language, volume and coherence. Thought content- normal with ability to perform basic computations and apply abstract thought/reason. Associations- intact, no SI/HI, no hallucinations, delusions, obsessions. Judgment/insight- Appropriate. Memory-Recall intact, remote and recent memory intact. Knowledge- Age appropriate fund of knowledge, concentration and attention span normal. Lymphatic: Head/Neck- normal size and non tender to palpation. Laboratory Results - last 24 hr 06/17/20 06/17/20 06/17/20 05:32 05:32 05:32 WBC 4.02 L RBC 3.68 L Hgb 10.7 L Hct 31.7 L MCV 86.1 MCH 29.1 MCHC 33.8 RDW Coeff of Juliana 15.2 H Plt Count 112 L Immature Gran % (Auto) 0.2 Neut % (Auto) 61.2 Lymph % (Auto) 33.1 [place] % (Auto) 5.5 Eos % (Auto) 0.0 Baso % (Auto) 0.0 Neut # (Auto) 2.5 Lymph # (Auto) 1.3 [place] # (Auto) 0.2 L Eos # (Auto) 0.0 Baso # (Auto) 0.0 Immature Gran # (Auto) 0.0 PT INR Sodium 137.8 Potassium 4.59 Chloride 109.5 H Carbon Dioxide 23.9 Anion Gap 8.99 BUN 17.2 H Creatinine 0.49 L Estimated GFR (MDRD) 133.00 BUN/Creatinine Ratio 35.10 Glucose 258.6 H D Lactic Acid Calcium 8.15 L Total Bilirubin 0.35 AST 34.9 ALT 18.6 Alkaline Phosphatase 127.2 H Troponin I NT-Pro-B Natriuret Pep 160.000 H Total Protein 6.84 Albumin 3.18 L Globulin 3.66 Albumin/Globulin Ratio 0.86 06/17/20 06/17/20 06/17/20 05:32 10:00 10:03 WBC RBC Hgb Hct MCV MCH MCHC RDW Coeff of Juliana Plt Count Immature Gran % (Auto) Neut % (Auto) Lymph % (Auto) [place] % (Auto) Eos % (Auto) Baso % (Auto) Neut # (Auto) Lymph # (Auto) [place] # (Auto) Eos # (Auto) Baso # (Auto) Immature Gran # (Auto) PT 11.6 H INR 1.09 Sodium Potassium Chloride Carbon Dioxide Anion Gap BUN Creatinine Estimated GFR (MDRD) BUN/Creatinine Ratio Glucose Lactic Acid 1.54 Calcium Total Bilirubin AST ALT Alkaline Phosphatase Troponin I < 0.012 NT-Pro-B Natriuret Pep Total Protein Albumin Globulin Albumin/Globulin Ratio CXR: Bilateral pneumonia. 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), managed as type 2: Status: Acute Code(s): E13.9 - Other specified diabetes mellitus without complications SNOMED Code(s): 450515758 (6) Elevated LFTs: Status: Acute Code(s): R79.89 - Other specified abnormal findings of blood chemistry SNOMED Code(s): 957617288 (7) Diabetic neuropathy: Status: Acute Code(s): E11.40 - Type 2 diabetes mellitus with diabetic neuropathy, unspecified SNOMED Code(s): 814069839 (8) Hypertension: Status: Acute Code(s): I10 - Essential (primary) hypertension SNOMED Code(s): 20158881 (9) COPD (chronic obstructive pulmonary disease): Status: Acute Code(s): J44.9 - Chronic obstructive pulmonary disease, unspecified SNOMED Code(s): 59321590 (10) Hypothyroidism: Status: Acute Code(s): E03.9 - Hypothyroidism, unspecified SNOMED Code(s): 54363838 (11) Anxiety: Status: Acute Code(s): F41.9 - Anxiety disorder, unspecified SNOMED Code(s): 10046335 (12) Pancytopenia: Status: Acute Code(s): D61.818 - Other pancytopenia SNOMED Code(s): 147156343 (13) Cirrhosis of liver not due to alcohol: Status: None Code(s): K74.60 - Unspecified cirrhosis of liver SNOMED Code(s): 962253739 (14) Hypokalemia: Status: Acute Code(s): E87.6 - Hypokalemia SNOMED Code(s): 19134823 (15) Hypovitaminosis D: Status: Acute Code(s): E55.9 - Vitamin D deficiency, unspecified SNOMED Code(s): 93725109 (16) Hypersensitivity reaction: Status: Acute Code(s): T78.40XA - Allergy, unspecified, initial encounter SNOMED Code(s): 941743386 (17) Bradycardia: Status: Acute Code(s): R00.1 - Bradycardia, unspecified SNOMED Code(s): 60114430 Plan: COVID-19+ with SIRS/SEPSIS and concern for Pneumonia: 54 yr CF HD4 w/ SARS-COV-2 + status. now HD Day #4. Levaquin 750mg IV Day #4/5, decadron 6mg 10/10, Remdesivir 10/05 (REMDESIVIR STOPPED TODY DUE TO SUPPOSED HYPERSENTIVITY AND INFUSION RELATED REACTION). She was doing better but today is hypotensive, bradycardic, having fever again 12/14 and ~100 again yesterday, COPPOLA, nausea, diaphoresis. She has no skin rash. BP seems stable and better now that we have stopped this. The PT is prolonged, her liver enzymes are okay, she has nno angioedema, no seizure. Infusion related reaction vs hypersensitivity reaction as the most likely. At this point we have made the decision to stop this medication. Discussed unknowns of COVID. Still off lasix and coreg. She has been doing well on o2 satting >95% most of the time on 1 L-2L. Today 06/17 is day 8 of her symptoms. Will continue to cover her fever with Tylenol 500mg QID. Based on her presentation, I have ordered Troponin, NT ProBNP, CXR(portable). I have bolused her this am w/ 500 cc. COPPOLA last reported and she has [place] 7.5 up to TID PRN. Anxiety is better on xanax. This may also be result of remdesivir. Continue decadron. Plan to d/c tomorrow if BP remains okay overnight. We reviewed steps that may need to occur should she worsen. We will continue to use oxygen to keep her 90 - <98%. We reviewed proning, position changes again, discussed OOB. She still has some dizziness, nausea, fatigue, hypotension/bradycardia this am (IMPROVED THIS PM). She wants to remain full code. She is scared and anxious for her health and her fathers health, who is now admitted at [facility]. Patient seen in room SCU 1 with full PPE again this am by me. Reviewed her history, discussed case with nursing, reviewed labs, telemetry. At present I feel she requires continued inpatient admission with ultimate plan d/c tomorrow. She is currently on oxygen, IV steroids, we did not give her the infusion medication remdesivir on 06/17 due to concern. The patient is agreeable to continue full admission and plan for d/c tomorrow should BP/HR and symptoms continue to remain as they are. Discussed O2 and that patients do not tend to get o2 toxicity and discussed how proning can allow for reduced use of o2. Ferritin returned okay. CRP was elevated at 30. On abx, on steroids. Labs overall look stable except low K+. Repeat CBC/CMP tomorrow. We will continue fluids to 100ml/hour overnight w/ 10meq K+cl added to cover for losses. 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 - Continue Admit to inpatient service SCU1 w/ Telemetry. - STOP remdesivir protocol Day. DO NOT GIVE DOSE #4. She completed 3/5 doses - Dexamethasone 6mg IV daily. 10/10 - Diet -ADA 1800 kcal - O2 to keep her in high 90s. Ideally ~98%. - Labs: - CBC/CMP q am. - BC Negative x 3 days - Troponin - PT/INR - Lactate - NT pro bnp - Fluids: - 100ml/hour NS overnight + 10 meq K+CL- - ABG: - PRN symptoms - Imaging: CXR - Antibiotics: - Levaquin 750mg IV daily x 5 days to cover for pneumonia DAY 4/5 Bradycardia/Hypotension/hypersensitivity reaction: Fluid bolus 500ml x 1. She may have developed antibodies similar to chemo infusion reaction. Improved after holding 12pm dose 06/17/20. BP improved to 103/47 with HR in 80's. - Stop offending agent remdesivir. - Telemetry Hypotension: Continue to hold coreg and lasix 06/16. Monitor. MAP >65. Was Stable/improving but worse today. Held remdesivir. Will f/u with patient 06/18 and see if she continues to improve. HAYLEY: Repeat A1C increased at 8.84 up from 7.61 02/12/20. Monitor glucose. increased from 92 BID at admit to 95 BID lantus 06/15 to 100 units BID on 06/16. Will increase to 105 unnits BID starting today. Continue q 4 hours accuhecks. Continue ADA diet. - Continue Lantus at 100units BID - Sliding scale regular insulin - Hold metformin/victoza. - Accucheck q 4 hours. Elevated LFT: Chronic, monitor.Stable/improved compared to previous. Essentially normal/resolved now. - Daily CMP Diabetic Neuropathy: Chronic process on gabapentin. We can continue this through hospital stay. COPD: Chronic process, continue albuterol 2 puffs q 4 hours PRN. She is on decadron 6mg IV daily. - Chronic/monitor. - Continue albuterol - Steroids started Hypothyroid: Mild elevation of TSH. Will continue her home dose of levothyroxine, no changes for now. Anxiety: Chronic no changes to meds for now. Monitor. Stable. Pancytopenia: Reviewed. Still monitoring. Platelets are stable. - CBC daily. Hypocalcemia/hypovitaminosis D: Corrected with hypocalcemia w/ oral calcium on day 1. Pseudohypocalcemia due to low albumin. Stable. Corrects to normal. Vit D50K units x 1 given in hospital. Repeat in 1 week. Hypokalemia: Mg++ normal range. Corrected with 40mg BID and overnight 10meq/L of K+cl-. Stable. Continue to monitor K+. - 40meq BID with meals PO DVT PROPHY: I will use lovenox 40mg subcut daily. Diet: ADA 1800kcal. Fluids: 100mll NS K+ 10meq added for overnight. - Maintain MAP >65. Activity: - Up with assist due to dizziness - Nursing instructions Reviewed w/ nursing. - Showered today, felt better after stopping remdesivir. Disposition: Expected length of stay through 06/18. Assuming continued course today and BP stabilizes, plan for d/c tomorrow. We stopped remdesivir after 3 doses due to concern for hypersensitivity reaction/infusion reaction. Bradycardia improved after stopping this, hypotension improved after stopping this, nausea, COPPOLA improved after stopping the medication. Continue IV abx w/ last dose 06/18/20. We will continue oxygen, continue to monitor glucose while on steroids and maintain control, continue to monitor BP/HR. She has known COVID- 19 which has had significant complications nationally. She is on FDA appropriate treatment. We have started remdesivir and completed Day 09/04 but she was having COPPOLA, nausea, spiked a fever again, diaphoresis per nursing, and then hypotension and bradycardia asymptomatically (dizzy when ambulating). This pm off the medication she has showered, she felt better. We will continue the steroids dexamethasone 6mg IV day 10/10. She is on IV abx for pneumonia Levaquin 750 IV day 10/05. We discussed the above orders. I want O2 to continue unless regularly >98%. I discussed proning/positional changes. I discussed monitor for worsening hypotension and to keep BP MAP >65. If this drops please call me. I discussed to monitor fluid overuse with goal to keep her somewhat dry. 3 days in a row +fluid balance. Fluids overnight only. See back 06/18. Today >35 minutes spent on rounding/orders/patient care/donning+doffing PPE. Checked on patient in am, lab check x2 throughout day and discussed with nurse x2.
[2020-06-17] MEDS ORDERED: SODIUM CHLORIDE 500 ML IV STA (07:40)
[2020-06-17] MEDS: NEURONTIN PO SCH ×5 (09:17→21:45)
[2020-06-17] MEDS: BUSPAR PO SCH ×3 (09:17→21:45)
[2020-06-17] MEDS: DECADRON IVP SCH (09:19)
[2020-06-17] MEDS: K-DUR PO SCH ×2 (09:19→17:12)
[2020-06-17] MEDS: LANTUS SUBCUT SCH ×2 (09:20→21:43)
[2020-06-17] MEDS: LOVENOX SUBCUT SCH (09:22)
[2020-06-17 10:24] LABS: PROTHROMBIN TIME 11.6 SEC (9.3-11.0)
[2020-06-17] MEDS: VENTOLIN HFA (PER PUFF-WITH SPACER) IH PRN ×2 (10:38→14:12)
--- NOTE | 2020-06-17 12:28 | DI ---
EXAM: Chest one view HISTORY: COVID-19 COMPARISON: 06/13/2020 TECHNIQUE: Single view of the chest was performed FINDINGS: Multifocal bilateral consolidation. There is no pleural effusion or pneumothorax. The he art is borderline enlarged in size. The mediastinal contour is normal. There are no acute abnormali ties of the bones. Electronic recording device projects over the left chest. IMPRESSION: Multifocal bilateral pneumonia
[2020-06-17] MEDS: XANAX PO PRN (18:03)
[2020-06-17] MEDS ORDERED: LEVAQUIN 750 MG/150 ML D5W 750 MG/150 ML BAG IV SCH (21:00)
[2020-06-17] MEDS ORDERED: MYLICON PO STA (21:27)
[2020-06-18] MEDS: HUMALOG SUBCUT PRN ×2 (02:48→10:03)
[2020-06-18] MEDS: PROTONIX PO SCH (06:19)
[2020-06-18 06:42] VITALS: TEMP 97.6
[2020-06-18 06:54] LABS: BASOPHILS % (AUTO) 0.1 % (0.0-3.0); EOSINOPHILS % (AUTO) 0.1 % (0.0-7.0); HEMATOCRIT 33.1 % (37.0-47.0); HEMOGLOBIN 10.9 g/dl (12.0-16.0); IMMATURE GRANULOCYTE % (AUTO) 0.3 % (0.0-5.0); LYMPHOCYTES # (AUTO) 2.3 K/uL (0.60-3.4); LYMPHOCYTES % (AUTO) 31.6 (10.0-50.0); MEAN CORPUSCULAR HEMOGLOBIN 28.4 pg (27.0-31.0); MEAN CORPUSCULAR HGB CONC 32.9 (31.8-35.4); MEAN CORPUSCULAR VOLUME 86.2 fl (81.0-99.0); MONOCYTES # (AUTO) 0.3 K/uL (0.4-2.0); MONOCYTES % (AUTO) 4.6 (0-10); NEUTROPHILS # (AUTO) 4.7 K/ul (2.0-6.9); NEUTROPHILS % (AUTO) 63.3 % (42.2-75.2); PLATELET COUNT 148 10^3/uL (140-440); RDW COEFFICIENT OF VARIATION 15.3 % (11.6-14.8); RED BLOOD COUNT 3.84 10^6/ul (4.20-5.40); WHITE BLOOD COUNT 7.37 K/ul (4.6-10.2)
[2020-06-18 07:06] LABS: ALBUMIN 3.34 g/dL (3.5-5.0); ALKALINE PHOSPHATASE 105.8 U/L (38-126); ASPARTATE AMINO TRANSFERASE 31.7 U/L (14-36); BILIRUBIN,TOTAL 0.59 mg/dL (0.2-1.3); BLOOD UREA NITROGEN 15.5 mg/dL (7-17); CALCIUM 8.53 mg/dL (8.4-10.2); CHLORIDE 110.2 mmol/L (98-107); CREATININE 0.43 mg/dL (0.60-1.30); GLUCOSE 103.8 mg/dL (74-106); POTASSIUM 4.41 mmol/L (3.5-5.1); SODIUM 138.4 mmol/L (134.5-145); TOTAL PROTEIN 7.17 g/dL (6.3-8.2)
[2020-06-18 07:09] LABS: CARBON DIOXIDE 22.8 mmol/L (22-30.0)
[2020-06-18 07:14] LABS: PROTHROMBIN TIME 11.1 SEC (9.3-11.0)
[2020-06-18] MEDS ORDERED: LOVENOX SUBCUT SCH (09:00)
[2020-06-18] MEDS: NEURONTIN PO SCH ×3 (09:10→13:03)
[2020-06-18] MEDS: DECADRON IVP SCH (09:11)
[2020-06-18] MEDS: BUSPAR PO SCH (09:11)
[2020-06-18] MEDS: K-DUR PO SCH (09:13)
--- NOTE | 2020-06-18 09:38 | PCM.DC ---
Final Diagnosis: 1. COVID 19 2. Bilateral Pneumonina 3. Hypoxia 4. Hypersensitivity reaction to Remdesivir (hypotension/bradcyardia) 5. Diabetes IDDM with hyperglycemia 6. Elvated LFT 7. Hypovitaminosis D 8. Hypokalemia 9. Hypocalcemia 10. COPD 11. Obesity BMI 35.7 12. Hypothyroidism 13. Anxiety 14. 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), managed as type 2: Status: Acute Code(s): E13.9 - Other specified diabetes mellitus without complications SNOMED Code(s): 413740835 (6) Elevated LFTs: Status: Acute Code(s): R79.89 - Other specified abnormal findings of blood chemistry SNOMED Code(s): 499713339 (7) Diabetic neuropathy: Status: Acute Code(s): E11.40 - Type 2 diabetes mellitus with diabetic neuropathy, unspecified SNOMED Code(s): 113036291 (8) Hypertension: Status: Acute Code(s): I10 - Essential (primary) hypertension SNOMED Code(s): 01879230 (9) COPD (chronic obstructive pulmonary disease): Status: Acute Code(s): J44.9 - Chronic obstructive pulmonary disease, unspecified SNOMED Code(s): 37584184 (10) Hypothyroidism: Status: Acute Code(s): E03.9 - Hypothyroidism, unspecified SNOMED Code(s): 37590441 (11) Anxiety: Status: Acute Code(s): F41.9 - Anxiety disorder, unspecified SNOMED Code(s): 57700282 (12) Pancytopenia: Status: Acute Code(s): D61.818 - Other pancytopenia SNOMED Code(s): 730403982 (13) Cirrhosis of liver not due to alcohol: Status: None Code(s): K74.60 - Unspecified cirrhosis of liver SNOMED Code(s): 774775802 (14) Hypokalemia: Status: Acute Code(s): E87.6 - Hypokalemia SNOMED Code(s): 50729797 (15) Hypovitaminosis D: Status: Acute Code(s): E55.9 - Vitamin D deficiency, unspecified SNOMED Code(s): 53601874 (16) Hypersensitivity reaction: Status: Acute Code(s): T78.40XA - Allergy, unspecified, initial encounter SNOMED Code(s): 074356046 (17) Bradycardia: Status: Acute Code(s): R00.1 - Bradycardia, unspecified SNOMED Code(s): 29673047 Reason for Hospitalization: 1. COVID 19, Dehydration, Hypoxia, Bilateral Pneumonia, Chronic IDDM, Chronic hypothyroidism. Prognosis at Discharge: Improved/stable and prognsis looks good with tomorrow being day 10 of her symptoms. BP has stabilized. HR has stabilized. Completed 3/5 days of remdesivir. Condition at Discharge: Improved/stable. She has reached maximal point of medical improvement for her current symptoms. Offered swing bed/NH declined. Discussed d/c home at this point as stable on 2L NC and not progressing at this time. Medications at Discharge: Ambulatory Orders Medication Instructions Recorded dicyclomine 10 mg PO TID PRN 12/30/18 valacyclovir 1 gram tablet 2,000 mg PO BID PRN #8 tab 06/14/19 lancets 33 gauge 33 gauge MISCELLANEOUS .QID and 09/30/19 PRN #200 each ftqyoanixo-pwailkzsqebfn-osvoydjo 1 cap PO Q6H PRN #90 cap 11/18/19 50 mg-325 mg-40 mg capsule buspirone 15 mg tablet 15 mg PO TID #90 tab 02/12/20 sucralfate 1 gram tablet 1 gm PO BID tab 02/12/20 insulin lispro 100 unit/mL 8 - 20 unit SUBCUT with meals PRN 02/13/20 subcutaneous pen 30 Days #15 ml gabapentin 300 mg capsule See Rx Instructions PO .COMPLEX 03/10/20 #60 cap gabapentin 400 mg capsule 800 mg PO BID #90 cap 03/10/20 ondansetron 4 mg PO Q8H PRN 03/13/20 pantoprazole 40 mg tablet,delayed 40 mg PO QDAY #30 tab 04/13/20 release albuterol sulfate 90 mcg/actuation 2 puff IH Q4-6H PRN #18 gm 04/28/20 aerosol inhaler tizanidine 4 mg tablet 4 mg PO Q6H PRN #120 tab 04/28/20 liraglutide 0.6 mg/0.1 mL (18 mg/3 See Rx Instructions .ROUTE 05/01/20 mL) subcutaneous pen injector .COMPLEX #9 ml fluticasone propionate 50 See Rx Instructions .ROUTE 05/15/20 mcg/actuation nasal .COMPLEX #16 g spray,suspension levothyroxine 88 mcg tablet See Rx Instructions .ROUTE 05/15/20 .COMPLEX #90 tablet blood sugar diagnostic 1 strip MISCELLANEOUS .QID and PRN 06/10/20 #100 each C.OXYGENCONCENTRATOR [OXYGEN #1 ea 06/18/20 CONCENTRATOR] acetaminophen 500 mg PO Q4-6H PRN #60 tab 06/18/20 alprazolam 0.5 mg PO BID PRN 7 Days #15 tab 06/18/20 dexamethasone 6 mg PO DAILY #5 tab 06/18/20 ergocalciferol (vitamin D2) 50,000 unit PO WEEKLY 90 Days #12 06/18/20 cap hydrocodone-acetaminophen 1 tab PO BID PRN 5 Days #10 tab 06/18/20 insulin glargine [Lantus U-100 110 unit SUBCUT BID 90 Days #198 ml 06/18/20 Insulin] levofloxacin 750 mg PO DAILY #2 tab 06/18/20 metformin 850 mg PO BID #180 tab 06/18/20 potassium chloride [Klor-Con M20] 40 meq PO BIDWM 30 Days #120 tab 06/18/20 walker [Ultra-Light Rollator] #1 ea 06/18/20 Lab/Diagnostics: Laboratory Tests 06/13/20 06/13/20 06/13/20 22:14 22:45 22:50 WBC 4.45 L RBC 4.46 Hgb 12.6 Hct 37.4 MCV 83.9 MCH 28.3 MCHC 33.7 RDW Coeff of Juliana 14.2 Plt Count 125 L Immature Gran % (Auto) 0.2 Neut % (Auto) 50.9 Lymph % (Auto) 41.1 [place] % (Auto) 7.6 Eos % (Auto) 0.0 Baso % (Auto) 0.2 Neut # (Auto) 2.3 Lymph # (Auto) 1.8 [place] # (Auto) 0.3 L Eos # (Auto) 0.0 Baso # (Auto) 0.0 Immature Gran # (Auto) 0.0 PT INR APTT Puncture Site Lrad O2 Saturation 95.6 ABG pH 7.51 H* ABG pCO2 30.0 L ABG pO2 71.0 L ABG HCO3 23.9 ABG Total CO2 24.8 ABG Base Excess 0.9 Tani Test + O2 Delivery Device Oxygen Liter Flow FiO2 % 21.0 Sodium Potassium Chloride Carbon Dioxide Anion Gap BUN Creatinine Estimated GFR (MDRD) BUN/Creatinine Ratio Glucose Hemoglobin A1c Lactic Acid Calcium Ionized Calcium Magnesium Ferritin Total Bilirubin AST ALT Alkaline Phosphatase Lactate Dehydrogenase Total Creatine Kinase Troponin I C-Reactive Prot, Quant NT-Pro-B Natriuret Pep Total Protein Albumin Globulin Albumin/Globulin Ratio 25-OH Vitamin D Total Procalcitonin TSH D-Dimer Urine Color Urine Clarity Urine pH Ur Specific [place] Urine Protein Urine Glucose (UA) Urine Ketones Urine Blood Urine Nitrite Urine Bilirubin Urine Urobilinogen Ur Leukocyte Esterase Urine Microscopic RBC Ur Squamous Epith Cells Urine Bacteria Urine Mucus Adenovirus (PCR) Not detected B. pertussis DNA (PCR) Not detected B.parapertussis DNA PCR Not detected C. pneumoniae DNA (PCR) Not detected Coronavirus OC43 (PCR) Not detected Coronavirus HKU1 (PCR) Not detected Coronavirus 229E (PCR) Not detected Coronavirus NL63 (PCR) Not detected Human Metapneumovir PCR Not detected Influenza Type A (PCR) Not detected Influenza B (RT-PCR) Not detected M. pneumoniae (PCR) Not detected Parainfluenza 1 (PCR) Not detected Parainfluenza 2 (PCR) Not detected Parainfluenza 3 (PCR) Not detected Parainfluenza 4 (PCR) Not detected RSV (PCR) Not detected Entero/Rhino (PCR) Not detected SARS-CoV-2 (PCR) Detected H 06/13/20 06/13/20 06/13/20 22:50 22:50 22:50 WBC RBC Hgb Hct MCV MCH MCHC RDW Coeff of Juliana Plt Count Immature Gran % (Auto) Neut % (Auto) Lymph % (Auto) [place] % (Auto) Eos % (Auto) Baso % (Auto) Neut # (Auto) Lymph # (Auto) [place] # (Auto) Eos # (Auto) Baso # (Auto) Immature Gran # (Auto) PT INR APTT Puncture Site O2 Saturation ABG pH ABG pCO2 ABG pO2 ABG HCO3 ABG Total CO2 ABG Base Excess Tani Test O2 Delivery Device Oxygen Liter Flow FiO2 % Sodium 136.7 Potassium 3.41 L Chloride 104.2 Carbon Dioxide 22.8 Anion Gap 13.11 BUN 10.5 Creatinine 0.60 Estimated GFR (MDRD) 105.00 BUN/Creatinine Ratio 17.50 Glucose 187.9 H Hemoglobin A1c Lactic Acid 0.93 Calcium 8.72 Ionized Calcium Magnesium Ferritin Total Bilirubin 0.49 AST 101.9 H ALT 43.3 H Alkaline Phosphatase 178.5 H Lactate Dehydrogenase Total Creatine Kinase 71.1 Troponin I < 0.012 C-Reactive Prot, Quant NT-Pro-B Natriuret Pep Total Protein 8.18 Albumin 4.04 Globulin 4.14 Albumin/Globulin Ratio 0.97 25-OH Vitamin D Total Procalcitonin 0.17 TSH 5.980 H D-Dimer Urine Color Urine Clarity Urine pH Ur Specific [place] Urine Protein Urine Glucose (UA) Urine Ketones Urine Blood Urine Nitrite Urine Bilirubin Urine Urobilinogen Ur Leukocyte Esterase Urine Microscopic RBC Ur Squamous Epith Cells Urine Bacteria Urine Mucus Adenovirus (PCR) B. pertussis DNA (PCR) B.parapertussis DNA PCR C. pneumoniae DNA (PCR) Coronavirus OC43 (PCR) Coronavirus HKU1 (PCR) Coronavirus 229E (PCR) Coronavirus NL63 (PCR) Human Metapneumovir PCR Influenza Type A (PCR) Influenza B (RT-PCR) M. pneumoniae (PCR) Parainfluenza 1 (PCR) Parainfluenza 2 (PCR) Parainfluenza 3 (PCR) Parainfluenza 4 (PCR) RSV (PCR) Entero/Rhino (PCR) SARS-CoV-2 (PCR) 12/12/20 12/12/20 12/12/20 22:50 22:50 22:50 WBC RBC Hgb Hct MCV MCH MCHC RDW Coeff of Juliana Plt Count Immature Gran % (Auto) Neut % (Auto) Lymph % (Auto) [place] % (Auto) Eos % (Auto) Baso % (Auto) Neut # (Auto) Lymph # (Auto) [place] # (Auto) Eos # (Auto) Baso # (Auto) Immature Gran # (Auto) PT 11.0 INR 1.04 APTT 25.6 Puncture Site O2 Saturation ABG pH ABG pCO2 ABG pO2 ABG HCO3 ABG Total CO2 ABG Base Excess Tani Test O2 Delivery Device Oxygen Liter Flow FiO2 % Sodium Potassium Chloride Carbon Dioxide Anion Gap BUN Creatinine Estimated GFR (MDRD) BUN/Creatinine Ratio Glucose Hemoglobin A1c Lactic Acid Calcium Ionized Calcium Magnesium Ferritin Total Bilirubin AST ALT Alkaline Phosphatase Lactate Dehydrogenase Total Creatine Kinase Troponin I C-Reactive Prot, Quant 30 H NT-Pro-B Natriuret Pep Total Protein Albumin Globulin Albumin/Globulin Ratio 25-OH Vitamin D Total Procalcitonin TSH D-Dimer 357.22 Urine Color Urine Clarity Urine pH Ur Specific [place] Urine Protein Urine Glucose (UA) Urine Ketones Urine Blood Urine Nitrite Urine Bilirubin Urine Urobilinogen Ur Leukocyte Esterase Urine Microscopic RBC Ur Squamous Epith Cells Urine Bacteria Urine Mucus Adenovirus (PCR) B. pertussis DNA (PCR) B.parapertussis DNA PCR C. pneumoniae DNA (PCR) Coronavirus OC43 (PCR) Coronavirus HKU1 (PCR) Coronavirus 229E (PCR) Coronavirus NL63 (PCR) Human Metapneumovir PCR Influenza Type A (PCR) Influenza B (RT-PCR) M. pneumoniae (PCR) Parainfluenza 1 (PCR) Parainfluenza 2 (PCR) Parainfluenza 3 (PCR) Parainfluenza 4 (PCR) RSV (PCR) Entero/Rhino (PCR) SARS-CoV-2 (PCR) 06/13/20 06/13/20 06/14/20 22:50 22:55 05:15 WBC 3.56 L RBC 3.89 L Hgb 11.1 L Hct 33.1 L MCV 85.1 MCH 28.5 MCHC 33.5 RDW Coeff of Juliana 14.7 Plt Count 104 L Immature Gran % (Auto) 0.3 Neut % (Auto) 58.1 Lymph % (Auto) 35.7 [place] % (Auto) 5.6 Eos % (Auto) 0.3 Baso % (Auto) 0.0 Neut # (Auto) 2.1 Lymph # (Auto) 1.3 [place] # (Auto) 0.2 L Eos # (Auto) 0.0 Baso # (Auto) 0.0 Immature Gran # (Auto) 0.0 PT INR APTT Puncture Site O2 Saturation ABG pH ABG pCO2 ABG pO2 ABG HCO3 ABG Total CO2 ABG Base Excess Tani Test O2 Delivery Device Oxygen Liter Flow FiO2 % Sodium Potassium Chloride Carbon Dioxide Anion Gap BUN Creatinine Estimated GFR (MDRD) BUN/Creatinine Ratio Glucose Hemoglobin A1c Lactic Acid Calcium Ionized Calcium Magnesium Ferritin Total Bilirubin AST ALT Alkaline Phosphatase Lactate Dehydrogenase 208 Total Creatine Kinase Troponin I C-Reactive Prot, Quant NT-Pro-B Natriuret Pep Total Protein Albumin Globulin Albumin/Globulin Ratio 25-OH Vitamin D Total Procalcitonin TSH D-Dimer Urine Color Yellow Urine Clarity Slightly Urine pH 5.5 Ur Specific Bard 1.025 Urine Protein 1+ H Urine Glucose (UA) Negative Urine Ketones Trace H Urine Blood Negative Urine Nitrite Negative Urine Bilirubin Negative Urine Urobilinogen 0.2 Ur Leukocyte Esterase Negative Urine Microscopic RBC 0-2 Ur Squamous Epith Cells 5-10 Urine Bacteria Trace Urine Mucus Trace Adenovirus (PCR) B. pertussis DNA (PCR) B.parapertussis DNA PCR C. pneumoniae DNA (PCR) Coronavirus OC43 (PCR) Coronavirus HKU1 (PCR) Coronavirus 229E (PCR) Coronavirus NL63 (PCR) Human Metapneumovir PCR Influenza Type A (PCR) Influenza B (RT-PCR) M. pneumoniae (PCR) Parainfluenza 1 (PCR) Parainfluenza 2 (PCR) Parainfluenza 3 (PCR) Parainfluenza 4 (PCR) RSV (PCR) Entero/Rhino (PCR) SARS-CoV-2 (PCR) 06/14/20 06/14/20 06/14/20 05:15 05:15 05:15 WBC RBC Hgb Hct MCV MCH MCHC RDW Coeff of Juliana Plt Count Immature Gran % (Auto) Neut % (Auto) Lymph % (Auto) [place] % (Auto) Eos % (Auto) Baso % (Auto) Neut # (Auto) Lymph # (Auto) [place] # (Auto) Eos # (Auto) Baso # (Auto) Immature Gran # (Auto) PT INR APTT Puncture Site O2 Saturation ABG pH ABG pCO2 ABG pO2 ABG HCO3 ABG Total CO2 ABG Base Excess Tani Test O2 Delivery Device Oxygen Liter Flow FiO2 % Sodium 133.4 L Potassium 3.79 Chloride 101.9 Carbon Dioxide 22.6 Anion Gap 12.69 BUN 12.0 Creatinine 0.73 Estimated GFR (MDRD) 84.00 BUN/Creatinine Ratio 16.43 Glucose 399.9 H D Hemoglobin A1c 8.84 H Lactic Acid Calcium 7.88 L Ionized Calcium Magnesium Ferritin Total Bilirubin 0.48 AST 82.0 H ALT 33.7 Alkaline Phosphatase 134.7 H D Lactate Dehydrogenase Total Creatine Kinase Troponin I C-Reactive Prot, Quant 28 H NT-Pro-B Natriuret Pep Total Protein 7.04 Albumin 3.42 L Globulin 3.62 Albumin/Globulin Ratio 0.94 25-OH Vitamin D Total Procalcitonin TSH D-Dimer Urine Color Urine Clarity Urine pH Ur Specific [place] Urine Protein Urine Glucose (UA) Urine Ketones Urine Blood Urine Nitrite Urine Bilirubin Urine Urobilinogen Ur Leukocyte Esterase Urine Microscopic RBC Ur Squamous Epith Cells Urine Bacteria Urine Mucus Adenovirus (PCR) B. pertussis DNA (PCR) B.parapertussis DNA PCR C. pneumoniae DNA (PCR) Coronavirus OC43 (PCR) Coronavirus HKU1 (PCR) Coronavirus 229E (PCR) Coronavirus NL63 (PCR) Human Metapneumovir PCR Influenza Type A (PCR) Influenza B (RT-PCR) M. pneumoniae (PCR) Parainfluenza 1 (PCR) Parainfluenza 2 (PCR) Parainfluenza 3 (PCR) Parainfluenza 4 (PCR) RSV (PCR) Entero/Rhino (PCR) SARS-CoV-2 (PCR) 06/14/20 06/14/20 06/15/20 05:15 08:05 05:36 WBC RBC Hgb Hct MCV MCH MCHC RDW Coeff of [place] Plt Count Immature Gran % (Auto) Neut % (Auto) Lymph % (Auto) [place] % (Auto) Eos % (Auto) Baso % (Auto) Neut # (Auto) Lymph # (Auto) [place] # (Auto) Eos # (Auto) Baso # (Auto) Immature Gran # (Auto) PT INR APTT Puncture Site Lr O2 Saturation 97.4 ABG pH 7.44 ABG pCO2 32.0 L ABG pO2 92.0 ABG HCO3 21.7 L ABG Total CO2 22.7 ABG Base Excess -2.5 L Tani Test + O2 Delivery Device Nc Oxygen Liter Flow 2.00 FiO2 % Sodium Potassium Chloride Carbon Dioxide Anion Gap BUN Creatinine Estimated GFR (MDRD) BUN/Creatinine Ratio Glucose Hemoglobin A1c Lactic Acid Calcium Ionized Calcium 5.1 Magnesium Ferritin Total Bilirubin AST ALT Alkaline Phosphatase Lactate Dehydrogenase Total Creatine Kinase Troponin I C-Reactive Prot, Quant NT-Pro-B Natriuret Pep Total Protein Albumin Globulin Albumin/Globulin Ratio 25-OH Vitamin D Total 20.3 L Procalcitonin TSH D-Dimer Urine Color Urine Clarity Urine pH Ur Specific [place] Urine Protein Urine Glucose (UA) Urine Ketones Urine Blood Urine Nitrite Urine Bilirubin Urine Urobilinogen Ur Leukocyte Esterase Urine Microscopic RBC Ur Squamous Epith Cells Urine Bacteria Urine Mucus Adenovirus (PCR) B. pertussis DNA (PCR) B.parapertussis DNA PCR C. pneumoniae DNA (PCR) Coronavirus OC43 (PCR) Coronavirus HKU1 (PCR) Coronavirus 229E (PCR) Coronavirus NL63 (PCR) Human Metapneumovir PCR Influenza Type A (PCR) Influenza B (RT-PCR) M. pneumoniae (PCR) Parainfluenza 1 (PCR) Parainfluenza 2 (PCR) Parainfluenza 3 (PCR) Parainfluenza 4 (PCR) RSV (PCR) Entero/Rhino (PCR) SARS-CoV-2 (PCR) 06/15/20 06/15/20 06/15/20 05:36 05:36 05:36 WBC 5.29 RBC 3.76 L Hgb 10.8 L Hct 32.5 L MCV 86.4 MCH 28.7 MCHC 33.2 RDW Coeff of Juliana 14.8 Plt Count 118 L Immature Gran % (Auto) 0.2 Neut % (Auto) 56.9 Lymph % (Auto) 37.6 [place] % (Auto) 5.1 Eos % (Auto) 0.0 Baso % (Auto) 0.2 Neut # (Auto) 3.0 Lymph # (Auto) 2.0 [place] # (Auto) 0.3 L Eos # (Auto) 0.0 Baso # (Auto) 0.0 Immature Gran # (Auto) 0.0 PT 11.4 H INR 1.08 APTT Puncture Site O2 Saturation ABG pH ABG pCO2 ABG pO2 ABG HCO3 ABG Total CO2 ABG Base Excess Tani Test O2 Delivery Device Oxygen Liter Flow FiO2 % Sodium 139.6 Potassium 3.43 L Chloride 108.1 H Carbon Dioxide 23.6 Anion Gap 11.33 BUN 13.6 Creatinine 0.52 L Estimated GFR (MDRD) 124.00 BUN/Creatinine Ratio 26.15 Glucose 159.6 H Hemoglobin A1c Lactic Acid Calcium 8.45 Ionized Calcium Magnesium Ferritin Total Bilirubin 0.30 AST 46.6 H D ALT 26.8 Alkaline Phosphatase 128.5 H Lactate Dehydrogenase Total Creatine Kinase Troponin I C-Reactive Prot, Quant NT-Pro-B Natriuret Pep Total Protein 7.18 Albumin 3.44 L Globulin 3.74 Albumin/Globulin Ratio 0.91 25-OH Vitamin D Total Procalcitonin TSH D-Dimer Urine Color Urine Clarity Urine pH Ur Specific [place] Urine Protein Urine Glucose (UA) Urine Ketones Urine Blood Urine Nitrite Urine Bilirubin Urine Urobilinogen Ur Leukocyte Esterase Urine Microscopic RBC Ur Squamous Epith Cells Urine Bacteria Urine Mucus Adenovirus (PCR) B. pertussis DNA (PCR) B.parapertussis DNA PCR C. pneumoniae DNA (PCR) Coronavirus OC43 (PCR) Coronavirus HKU1 (PCR) Coronavirus 229E (PCR) Coronavirus NL63 (PCR) Human Metapneumovir PCR Influenza Type A (PCR) Influenza B (RT-PCR) M. pneumoniae (PCR) Parainfluenza 1 (PCR) Parainfluenza 2 (PCR) Parainfluenza 3 (PCR) Parainfluenza 4 (PCR) RSV (PCR) Entero/Rhino (PCR) SARS-CoV-2 (PCR) 06/15/20 06/16/20 06/16/20 05:36 05:35 07:22 WBC RBC Hgb Hct MCV MCH MCHC RDW Coeff of Juliana Plt Count Immature Gran % (Auto) Neut % (Auto) Lymph % (Auto) [place] % (Auto) Eos % (Auto) Baso % (Auto) Neut # (Auto) Lymph # (Auto) [place] # (Auto) Eos # (Auto) Baso # (Auto) Immature Gran # (Auto) PT 11.6 H INR 1.09 APTT Puncture Site O2 Saturation ABG pH ABG pCO2 ABG pO2 ABG HCO3 ABG Total CO2 ABG Base Excess Tani Test O2 Delivery Device Oxygen Liter Flow FiO2 % Sodium 139.8 Potassium 3.16 L Chloride 108.2 H Carbon Dioxide 26.3 Anion Gap 8.46 BUN 9.4 Creatinine 0.57 L Estimated GFR (MDRD) 111.00 BUN/Creatinine Ratio 16.49 Glucose 106.0 Hemoglobin A1c Lactic Acid Calcium 7.91 L Ionized Calcium Magnesium Ferritin 47.70 Total Bilirubin 0.34 AST 44.3 H ALT 21.0 Alkaline Phosphatase 120.6 Lactate Dehydrogenase Total Creatine Kinase Troponin I C-Reactive Prot, Quant NT-Pro-B Natriuret Pep Total Protein 6.92 Albumin 3.24 L Globulin 3.68 Albumin/Globulin Ratio 0.88 25-OH Vitamin D Total Procalcitonin TSH D-Dimer Urine Color Urine Clarity Urine pH Ur Specific [place] Urine Protein Urine Glucose (UA) Urine Ketones Urine Blood Urine Nitrite Urine Bilirubin Urine Urobilinogen Ur Leukocyte Esterase Urine Microscopic RBC Ur Squamous Epith Cells Urine Bacteria Urine Mucus Adenovirus (PCR) B. pertussis DNA (PCR) B.parapertussis DNA PCR C. pneumoniae DNA (PCR) Coronavirus OC43 (PCR) Coronavirus HKU1 (PCR) Coronavirus 229E (PCR) Coronavirus NL63 (PCR) Human Metapneumovir PCR Influenza Type A (PCR) Influenza B (RT-PCR) M. pneumoniae (PCR) Parainfluenza 1 (PCR) Parainfluenza 2 (PCR) Parainfluenza 3 (PCR) Parainfluenza 4 (PCR) RSV (PCR) Entero/Rhino (PCR) SARS-CoV-2 (PCR) 06/16/20 06/17/20 06/17/20 07:22 05:32 05:32 WBC 4.02 L RBC 3.68 L Hgb 10.7 L Hct 31.7 L MCV 86.1 MCH 29.1 MCHC 33.8 RDW Coeff of Juliana 15.2 H Plt Count 112 L Immature Gran % (Auto) 0.2 Neut % (Auto) 61.2 Lymph % (Auto) 33.1 [place] % (Auto) 5.5 Eos % (Auto) 0.0 Baso % (Auto) 0.0 Neut # (Auto) 2.5 Lymph # (Auto) 1.3 [place] # (Auto) 0.2 L Eos # (Auto) 0.0 Baso # (Auto) 0.0 Immature Gran # (Auto) 0.0 PT INR APTT Puncture Site O2 Saturation ABG pH ABG pCO2 ABG pO2 ABG HCO3 ABG Total CO2 ABG Base Excess Tani Test O2 Delivery Device Oxygen Liter Flow FiO2 % Sodium 137.8 Potassium 4.59 Chloride 109.5 H Carbon Dioxide 23.9 Anion Gap 8.99 BUN 17.2 H Creatinine 0.49 L Estimated GFR (MDRD) 133.00 BUN/Creatinine Ratio 35.10 Glucose 258.6 H D Hemoglobin A1c Lactic Acid Calcium 8.15 L Ionized Calcium Magnesium 1.71 Ferritin Total Bilirubin 0.35 AST 34.9 ALT 18.6 Alkaline Phosphatase 127.2 H Lactate Dehydrogenase Total Creatine Kinase Troponin I C-Reactive Prot, Quant NT-Pro-B Natriuret Pep Total Protein 6.84 Albumin 3.18 L Globulin 3.66 Albumin/Globulin Ratio 0.86 25-OH Vitamin D Total Procalcitonin TSH D-Dimer Urine Color Urine Clarity Urine pH Ur Specific [place] Urine Protein Urine Glucose (UA) Urine Ketones Urine Blood Urine Nitrite Urine Bilirubin Urine Urobilinogen Ur Leukocyte Esterase Urine Microscopic RBC Ur Squamous Epith Cells Urine Bacteria Urine Mucus Adenovirus (PCR) B. pertussis DNA (PCR) B.parapertussis DNA PCR C. pneumoniae DNA (PCR) Coronavirus OC43 (PCR) Coronavirus HKU1 (PCR) Coronavirus 229E (PCR) Coronavirus NL63 (PCR) Human Metapneumovir PCR Influenza Type A (PCR) Influenza B (RT-PCR) M. pneumoniae (PCR) Parainfluenza 1 (PCR) Parainfluenza 2 (PCR) Parainfluenza 3 (PCR) Parainfluenza 4 (PCR) RSV (PCR) Entero/Rhino (PCR) SARS-CoV-2 (PCR) 06/17/20 06/17/20 06/17/20 05:32 05:32 10:00 WBC RBC Hgb Hct MCV MCH MCHC RDW Coeff of Juliana Plt Count Immature Gran % (Auto) Neut % (Auto) Lymph % (Auto) [place] % (Auto) Eos % (Auto) Baso % (Auto) Neut # (Auto) Lymph # (Auto) [place] # (Auto) Eos # (Auto) Baso # (Auto) Immature Gran # (Auto) PT 11.6 H INR 1.09 APTT Puncture Site O2 Saturation ABG pH ABG pCO2 ABG pO2 ABG HCO3 ABG Total CO2 ABG Base Excess Tani Test O2 Delivery Device Oxygen Liter Flow FiO2 % Sodium Potassium Chloride Carbon Dioxide Anion Gap BUN Creatinine Estimated GFR (MDRD) BUN/Creatinine Ratio Glucose Hemoglobin A1c Lactic Acid Calcium Ionized Calcium Magnesium Ferritin Total Bilirubin AST ALT Alkaline Phosphatase Lactate Dehydrogenase Total Creatine Kinase Troponin I < 0.012 C-Reactive Prot, Quant NT-Pro-B Natriuret Pep 160.000 H Total Protein Albumin Globulin Albumin/Globulin Ratio 25-OH Vitamin D Total Procalcitonin TSH D-Dimer Urine Color Urine Clarity Urine pH Ur Specific [place] Urine Protein Urine Glucose (UA) Urine Ketones Urine Blood Urine Nitrite Urine Bilirubin Urine Urobilinogen Ur Leukocyte Esterase Urine Microscopic RBC Ur Squamous Epith Cells Urine Bacteria Urine Mucus Adenovirus (PCR) B. pertussis DNA (PCR) B.parapertussis DNA PCR C. pneumoniae DNA (PCR) Coronavirus OC43 (PCR) Coronavirus HKU1 (PCR) Coronavirus 229E (PCR) Coronavirus NL63 (PCR) Human Metapneumovir PCR Influenza Type A (PCR) Influenza B (RT-PCR) M. pneumoniae (PCR) Parainfluenza 1 (PCR) Parainfluenza 2 (PCR) Parainfluenza 3 (PCR) Parainfluenza 4 (PCR) RSV (PCR) Entero/Rhino (PCR) SARS-CoV-2 (PCR) 06/17/20 06/18/20 06/18/20 10:03 06:48 06:48 WBC 7.37 RBC 3.84 L Hgb 10.9 L Hct 33.1 L MCV 86.2 MCH 28.4 MCHC 32.9 RDW Coeff of Juliana 15.3 H Plt Count 148 D Immature Gran % (Auto) 0.3 Neut % (Auto) 63.3 Lymph % (Auto) 31.6 [place] % (Auto) 4.6 Eos % (Auto) 0.1 Baso % (Auto) 0.1 Neut # (Auto) 4.7 Lymph # (Auto) 2.3 [place] # (Auto) 0.3 L Eos # (Auto) 0.0 Baso # (Auto) 0.0 Immature Gran # (Auto) 0.0 PT INR APTT Puncture Site O2 Saturation ABG pH ABG pCO2 ABG pO2 ABG HCO3 ABG Total CO2 ABG Base Excess Tani Test O2 Delivery Device Oxygen Liter Flow FiO2 % Sodium 138.4 Potassium 4.41 Chloride 110.2 H Carbon Dioxide 22.8 Anion Gap 9.81 BUN 15.5 Creatinine 0.43 L Estimated GFR (MDRD) 154.00 BUN/Creatinine Ratio 36.04 Glucose 103.8 Hemoglobin A1c Lactic Acid 1.54 Calcium 8.53 Ionized Calcium Magnesium Ferritin Total Bilirubin 0.59 AST 31.7 ALT 16.0 Alkaline Phosphatase 105.8 Lactate Dehydrogenase Total Creatine Kinase Troponin I C-Reactive Prot, Quant NT-Pro-B Natriuret Pep Total Protein 7.17 Albumin 3.34 L Globulin 3.83 Albumin/Globulin Ratio 0.87 25-OH Vitamin D Total Procalcitonin TSH D-Dimer Urine Color Urine Clarity Urine pH Ur Specific [place] Urine Protein Urine Glucose (UA) Urine Ketones Urine Blood Urine Nitrite Urine Bilirubin Urine Urobilinogen Ur Leukocyte Esterase Urine Microscopic RBC Ur Squamous Epith Cells Urine Bacteria Urine Mucus Adenovirus (PCR) B. pertussis DNA (PCR) B.parapertussis DNA PCR C. pneumoniae DNA (PCR) Coronavirus OC43 (PCR) Coronavirus HKU1 (PCR) Coronavirus 229E (PCR) Coronavirus NL63 (PCR) Human Metapneumovir PCR Influenza Type A (PCR) Influenza B (RT-PCR) M. pneumoniae (PCR) Parainfluenza 1 (PCR) Parainfluenza 2 (PCR) Parainfluenza 3 (PCR) Parainfluenza 4 (PCR) RSV (PCR) Entero/Rhino (PCR) SARS-CoV-2 (PCR) 06/18/20 06:48 WBC RBC Hgb Hct MCV MCH MCHC RDW Coeff of Juliana Plt Count Immature Gran % (Auto) Neut % (Auto) Lymph % (Auto) [place] % (Auto) Eos % (Auto) Baso % (Auto) Neut # (Auto) Lymph # (Auto) [place] # (Auto) Eos # (Auto) Baso # (Auto) Immature Gran # (Auto) PT 11.1 H INR 1.05 APTT Puncture Site O2 Saturation ABG pH ABG pCO2 ABG pO2 ABG HCO3 ABG Total CO2 ABG Base Excess Tani Test O2 Delivery Device Oxygen Liter Flow FiO2 % Sodium Potassium Chloride Carbon Dioxide Anion Gap BUN Creatinine Estimated GFR (MDRD) BUN/Creatinine Ratio Glucose Hemoglobin A1c Lactic Acid Calcium Ionized Calcium Magnesium Ferritin Total Bilirubin AST ALT Alkaline Phosphatase Lactate Dehydrogenase Total Creatine Kinase Troponin I C-Reactive Prot, Quant NT-Pro-B Natriuret Pep Total Protein Albumin Globulin Albumin/Globulin Ratio 25-OH Vitamin D Total Procalcitonin TSH D-Dimer Urine Color Urine Clarity Urine pH Ur Specific Bard Urine Protein Urine Glucose (UA) Urine Ketones Urine Blood Urine Nitrite Urine Bilirubin Urine Urobilinogen Ur Leukocyte Esterase Urine Microscopic RBC Ur Squamous Epith Cells Urine Bacteria Urine Mucus Adenovirus (PCR) B. pertussis DNA (PCR) B.parapertussis DNA PCR C. pneumoniae DNA (PCR) Coronavirus OC43 (PCR) Coronavirus HKU1 (PCR) Coronavirus 229E (PCR) Coronavirus NL63 (PCR) Human Metapneumovir PCR Influenza Type A (PCR) Influenza B (RT-PCR) M. pneumoniae (PCR) Parainfluenza 1 (PCR) Parainfluenza 2 (PCR) Parainfluenza 3 (PCR) Parainfluenza 4 (PCR) RSV (PCR) Entero/Rhino (PCR) SARS-CoV-2 (PCR) 06/13/20 CXR: Impression: Minimal left basilar atelectasis and/or pneumonia. 06/17/20 CXR multifocal bilateral pneumonia. Blood culture negative. Education Provided to Patient and Family: 1. DM sick day insulin when NPO 50% of normal dose. 2. New dose of insulin at 110 units BID while on steroids. Adjust again at OV 06/25/20 3. OV am 06/25/20 4. Labs 06/24/20. 5. O2 L Continuous 6. Rollator 7. Home health to monitor 8. s/sx of worsening, hypoxia, BP monitoring. 9. Decadron, dexamethasone, methylprednisolone, prednisone. Pt notified of potential pros/risks of steroid treatment including rapid improvement of condition; allergic reaction, psychologic reaction (depression, anxiety, insomnia), skin change at injection site (color, dimpling), muscle weakness, changes in blood sugar, cataracts/ glaucoma, AVN. This list is not all inclusive and patient is aware they may refuse treatment. 10. Reviewed hypersensitivity reaction should stop now that rx for remdesivir has stopped. 11. Bradycardia/hypotension to be monnitored consider echo if persistant. She is asymptomatic. Follow-ups: 1. Dr. Guthrie OV 06/25/20 at 0800 2. Labs 06/24/20 CBC/CMP Discharge Disposition: Home Hospital Course: Hospital Day 1: 06/14/20 54 yo CF presented to ED 06/13 at 21:58 with fever/body aches/chills/SOA/N/V/D. Initial vitals showed temp of 102.1, pulse 121, rr 20, bp 159/92, pulse ox 96%. With vitals, she met SIRS criteria and concern for COVID/Pneumonia and sepsis. She met with DR. Quinteros in the Ed who noted constant symptoms, mild to moderate, malaise, fever, MACHADO, no COPPOLA, +myalgia, non productive cough, dyspnea, fever, dizziness, emesis, no chest pain, no wheezing, no hemoptysis, no leg/calf pain. DDX considered beyond COVID-19 was CAP, urinary sepsis, influenza. PMHX complicated by obesity BMI 35.7, anemia, leukocytopenia, anxiety, arthritis, history of non alcohol induced cirrhosis, depression, IDDM poorly controlled, HAYLEY w/ + ROSINA ABS on 07/30/19, MIKI. PMHX/PSHX reviewed and no changes (Britt/Hysterectomy). Exam in ED showed ill appearing female, clear airways. CXR completed atelectasis vs pneumonia in the LLL. EKG completed and reviewed: Sinus Tachy, nl axis. No acute ST/T changes. Contacted me at 1230 on 06/14/20 for admission. We discussed medications and effects. IDEAL Body weight 136lb, Adjust body weight 172 lb. Based on body weight measurements NS should be ~102- 118. Ideally we keep patients with COVID-19 on the drier transfer car operator side but we will monitor for BP control. I discussed with ED provider fluids at 115ml/hour overnight based on above. Labs showed WBC 4.45, Hgb of 12.6, plt of 125. ABG showed O2 95.6, ph 7.51, pco2 30, po2 71, hco3 23.9, Allens +. She was on FIO2 of 21%. Repeat ABG ordered for this am on 2L NC o2, with recommendation to titrate to effect. My interpretation of ABG: Acute primary respiratory alkal osis uncompensated. PCR panel was completed and SARS-COV-2 was detected. Remainder of viral pathogens negative to include influenza. Metabolic panel showed sodium 136.7, K+ 3.41, cl 104.2, bun 10.5, cr 0.60, glucose was 187.9. Calcium 8.72, ast 101.9, alt 43.3. Troponin was negative. Albumin 4.04. TSH mildly elevated at 5.980, will work on that as outpatient. Ddimer was negative at 357.22. PT 11, INR 1.04, aptt 25.6. Procalcitonin 0.17, lactic acid 0.93. UA mildly concentrated with SG 1.025, pH 5.5, trace ketones squam 5-10, rbc 0-2, urine blood negative. We reviewed medications. Will start with levquin 750 daily, NS 115 ml/hour, remdesivir per protocol, place in SCU, start decadron, monitor glucose. Zosyn was given in ED. I recommended with Ddimer negative (FERRITIN PENDING) to start with lovenox 40mg daily (plus thrombocytopenia). I noted I would cover for insulin in the am. Most of her home meds were held. I had initially thought about placing her as observation but based on presentation with concern for sepsis/COVID/Pneumonia/IDDM I would recommend full admission to the hospital at this time. It appears CRP was ordered in ED but not yet back. This can help with deciding about anticoagulation as well. Last A1C 02/12/20 was 7.61. I will repeat this today as none within 30 days of admission. Rounding this am started at 0630 and labs had returned by that time. New labs showed further decrease of WBC from 44.5 to 3.56 and hgb from 12.6 to 11.1, plt from 125 to 104. Hemodilution appears possible in this case. She was bolused in the ED with NS. Differential shows a decline in monocytes. I have reordered an ABG for this am on oxygen. This am her sodium was 133.4 and corrected to 138 (Woodward)-141(Lemuel). Potassium was normal 3.79, CL normal 101.9. Creatinine 0.60 to 0.73 and GFR 105 to 84. Will need to continue to watch that. Her Glucose was 399.9 today. I have resumed her 92 units of lantus BID but bumped this up to 95 units BID today due to remdesivir. I will have Q4 hour accucheck and correctional insulin as well. Calcium appeared low this am at 7.88, but with her albumin of 3.42 she increased to 8.3. This was still a little low. I will replace calcium with oral calcium supplement. She has not had low calcium historically, this is new. Alk phos chronic elevation, stable. AST improved from 101.9 to 82. ALT normal at 33.7. Known liver disease chronically. Vitals this am showed BP 90/52, pulse 57. Her MAP is 65. I will bolus again 500 cc NS. I do not want to overhydrate her. However I want MAP to be maintained at >65. Bipap overnight, oxygen during the day to Keep >92%. Okay to increase FIO2 as needed. Reviewed nursing documentation: Obs narratives resting in bed comfortably, jello/apple juice. Patient noted feeling better, pain in rigth side 02/09. Dull throbbing. NS in left AC. Tele normal. 0300 resting comfortably. No s/sx of distress. 0400 resting. 0500 resting. NO pain. 2L saturations upper 90s. 0600 up to bathroom with standby assist.[place] dizzy up w/ assit. NO other c/o. Patient seen in SCU this am. PPE was donned/Doffed and this added ~5 minutes to the evaluation today. Patient interviewed independently. She noted symptoms started on sunday 06/10 w/ fever, fatigue, decreased taste/smell, body aches. She denied any known exposure/travel, she notes that she felt worse, was scheduled for carpal tunnel surgery and was told to not take NSAIDS. She has not used anything for her symptoms. By Monday she had Nausea/emesis/diarrhea, decreased PO, decreased appetite. She noted that she could not take the fever any longer, did not know what to take and presented to ED. She is feeling markedly better now. O2 discussed to be continued, will use remdesivir, will use dexamethasone, will replace her calcium, will correct/monitor sugars as a reaction to steroid use. No urinary symptoms. No freq/hesitancy/burning. Father is who she wants contacted. She is full code. Spent 10 minutes today discussing next steps, make sure POA, make sure recommendations are known/written down. She is afraid, and we discussed medication options, limited options with science and data vs internet suggestions of what could work. We discussed evidence based options at length today. Discussed reality of the virus as somewhat unpredictable. We will monitor her oxygen, BP, BG, we will give meds as listed above and advance interventions as needed. Bipap overnight. Proning. Discussed several next steps to include advanced care planning. Full code for now. Hospital Day 2: 06/15/20 54 yo CF HD #2, levaquin 750mg IV Day 2, Remdesivir Day 2, Decadron Day 2. COVID + status SIRS with SEPSIS concern for pneumonia/dehydration, pancytopenia, hypocalcemia. Fluids are currently running at 115 ml/hour based on her adjusted body weight. I+O overnight total intake 4541 in and 3741 out with balance of 800+. She had N/V/D and was a bit on the dry side. I will tolerate a slight increase in balance of <1L for 24-48 hours. She had #4 voids. Monitor for overhydration as patients tend to do better when on the drier transfer car operator side. I will back down to 115ml/hour only overnight, during the day I will saline lock the IV. BP remains on the lowr side most of the day yesterday but MAP stayed above 65. Her BB was held. Lasix was held. 94/62 by 1130 yesterday, 96/48 at 12, 92/58 at 1232, 101/57 at 1308 then normal 1543 at 117/69. She has been >100 SBP all but 1 reading (0136 was 96/62). This am 102/64. RR seems to be stable at 16-20. HR 60-68 (83 at 2110) throughout the day yesterday. Afebrile all day yesterday. She has maintained O2 at 95-100 yesterday on 2 L. Regarding DM Accuchecks were completed and 399, 393, 383, 210, 311, 338, 324, 206, 159. She is on remdesivir/steroid and I suspect steroidal effect. I increased her lantus to 95 BID from 92 BID yesterday. She received 6 units at 10am, 6 units at 1500, 8 units 2100 3 units at 0600 this am. Total of 17 units in 24 hours plus the additional 6 units BID to the lantus. I will increase her further to 100 units lantus BID. Continue sliding scale, monitor q 4 hour Accuchecks. Telemetry monitoring showed Sinus rhythm to sinus dhaval. OR 0.16 and qrs 0.08. AM labs reviewed: WBC has improved form 3.56 to 5.29, hgb 11.1 down to 10.8 and plt increased from 104 to 118K/ul. This is improved. INR 1.08 and stable. Repeat ABG done yesterday on O2 showed her PO2 increased from 71 to 92, her Hco3 dropped a little to 21.7 from 23.9. Her PCO2 increased a little from 30 to 32. pH has improved. She is still in Acute (uncompensated) primary respiratory alkalosis. CMP this am showed hypokalemia, which we will replace orally as tolerating liquids now. Her Creatinine is back to her baseline 0f ~0.52 and GFR 124. Her glucose was better this am. Calcium was normal again this am. Vit D was low at 20.3 so we will give her a 50,000 unit x 1. Stop Calcium supplement. FERRITIN AND CRP PENDING. BC pending. Called lab to check on the CRP (STILL PENDING). Ferritin was not completed. I have reordered ferritin. Additional Imaging: NONE Changes: Stop calcium, add Vit D 50,000 units weekly x 1 today. Treat further as an outpatient. Replace K+ orally. Stop fluids during day, resume at night at 100ml/hr. Increase lantus from 95 BID to 100 BID and continue lispro insulin q4 hours replacement. Hospital Day 3: 06/16/20 54 yo CF HD #3, levaquin 750mg IV Day 09/04, Remdesivir Day 09/04, Decadron Day 09/09. COVID + status SIRS with SEPSIS concern for pneumonia/dehydration, pancytopenia (improving), hypocalcemia (resolved), hypokalemia (replacing), hypovitaminosis D (replacing). Fluids are currently running at 100 ml/hour only overnight. Despite the fluid reduction she is still a net 610ml up. She had 2 recorded voids. Meals reviewed and eating 100%. Total input 2310, total output 1700ml. It appears CBC was not repeated. I added this order back to the list. I will stop daily coags INNR 1.09 and PT 11.6. Ferritin was 47.70 and reasonable. CRP came back as 30 which is elevated. Blood cultures now negative at 2 days. She continues inpatient admission due to need for remdesivir and inability to get this as an outpatient. She will have completed 3/5 doses today. She will remain in hospital until 06/18 barring any changes. CBC/CMP tomorrow. No additional imaging today. I reviewed her vital signs. She did spike a fever yesterday up to 102.7 at 1800 and had a 100 at 0154 this am. She has tylenol on board. HR most of the day yesterday was normal, she was tachycardic at 1800 at 103 and this continued until 0154 and then resumed again this am at 0447 at 103. Her BP was normal most of the day yesterday, she was mildly elevated this am at 0447 at 141/80. I will continue to monitor this and resume home BP meds as her BP trends back up. RR has ranged from 16-22 with mode of 16. She has been on NC most of the hospital stay and remaining high 90's. Still dizzy with up and ambul ating. I reviewed tele logs and she remains NSR. Regarding her DM: I increased her insulin lantus to 100 units BID. Humalog 3 units at 0600, 3 units at 1800/ G;icpse readomgs yesterday reveiwed 206, 159, 128, 138, 153, 130, 99, 118. She is well controlled now. Only a single reading <100. Better glycemic control than prior to admission. Reviewed notes from MARTÍNEZ Smith during day yesterday: Patient feeling better, still dizzy when standing up. WE had added 20meq K+CL- BID. Lantus changed as noted. 1307: Patient upset and crying. Worried about father. Chest tightness, anxiety increased, feeling worried. No N/V/D/C. She has no true chest pain. She feels hard to breath, sweaty. Nurse talked about anxiety. I was contacted talked to nursing and ordered xanax 1mg 1/2 tablet now repeat in 30 minutes if needed. Can repeat this BID PRN. Anxiety sx abated. Temp 102.7 last pm. She noted she felt bad, weak/flushed. Tylenol given. I was contacted last night ~2200 with patient having COPPOLA 8/10. Crying/anxious. I reminded team of the xanax and ordered norco 7.5 up to TID PRN. Monitor tylenol dose. At 22;40 she was comfortable. 0435 this am. COPPOLA 03/12. NOrco given. Tylenol 500 given as well. Afebrile this am. 0614 note: Patient has been proning, COPPOLA this am, fever last night. Changes: Await CMP that was ordered today. Replace K+ orally. Stop fluids during day, continue at night at 100ml/hr. Continue lantus from 100 BID and continue lispro insulin q4 hours replacement. 7:22 AM CMP was released. Sodium 139.8. K+ worse at 3.16. Will increase to 40meq/l BID and add K+ 10meq/L overnight with fluids starting tonight. Creatinine is stable. Glucose great at 106. Calcium 7.91. However this corrects to 8.5 based on albumin of 3.24. Hospital day 4 06/17/20: 54 yo CF HD #4, levaquin 750mg IV Day 10/05, Remdesivir Day 10/05, Decadron Day 10/10. COVID + status admitted SIRS with SEPSIS concern for pneumonia/dehydration, pancytopenia (improving), hypocalcemia (resolved), hypokalemia (replacing), hypovitaminosis D (replacing). Fluids are currently running at 100 ml/hour overnight with 10meq K+Cl-. I+O reviewed in last 24 hours 2076 intake 1600 out balance of 477. She had 4 voids yesterday and already 1 today. This is the third day that we have had a net positive. They have recorded a single void and no BM. I will have them weigh her today. Blood sugars 06/15 were much better controlled. Yesterday 118, 118, 244, 375, 424, 326, 236. Flowsheet was reviewed 8 units 1800. These were higher than the prior day. Review of vitals shows she was afebrile entire day for 06/16 (fever was present on 06/15). BB has been held. She has been bradycardic overnight. Blood pressure is low again after being normal most of the day yesterday. I have held her BP meds. Her MAP is below 65 at this time at 90/44. RR seems stable at 16-18 over last 24 hours. O2 94-97% on 1L NC. Tele showed she has had Sinus dhaval, sinus rhythm throughout the stay. Pancytopenia remains. CBC this am showed WBC 4.02, hgb 10.7, plt 112. This is not much different than yesterday. Differential shows a mild reduction in mono# else normal. CMP this am showed improved hypokalemia. She had sodium 137.8, K+ 4.59, creatinine 0.49, glucose elevated at 258.6. Calcium seems stable and corrects to 8.8. Magnesium yesterday was 1.71 and WNL. Patient liver enzymes are WNL. Nursing notes reviewed. Patient noted COPPOLA at 0939 yesterday and had norco ordered by me. This was given for COPPOLA of 02/09. Pronin regularly. at 1108. Dry cough. COPPOLA, photophobia. Afebrile, saline locked. Nausea with breakfast, zofran given. Sleeping at 12:16. COPPOLA improved. Low BP 83/53. 2256 COPPOLA 09/09. SOA with activity. This am at 0600 BP remains low but patient asymptomatic. I will increase her lantus from 100 BID to 105BID, continue sliding scale as she had several elevated readings yesterday >300. With the bradycardia, diaphoresis, dyspnea, return of the fever, hypotension, nausea, and likely COPPOLA. I am concerned for hypersensitivity reaction. I have stopped the remdesivir. Patient was re-evaluated again by me at 1445 06/17/20. Lactic acid was 1.54. BNP was 160. CXR shows multifocal bilateral pneumonia. I have ordered a Troponin as well. Afater concern for hypersensitivity reaction, I have bolused and I have stopped the remdesivir. I checked on her again at 1545 and she had a shower, HR 70-80. BP 100/70 and she was feeling much better. No pressors were used. Remdesivir hypersensitivity reaction likely. Troponin negative. I do not suspect cardiomyopathy based on presentation, rather I suspect that she has reaction to the remdesivir. Hospital Day 5 06/18/20: 54 yo CF HD #5, levaquin 750mg IV Day 11/04, Remdesivir Day STOPPED AFTER 09/04, Decadron Day 11/09. COVID + status admitted SIRS with SEPSIS concern for pneumonia/dehydration, pancytopenia (improving), hypocalcemia (resolved), hypokalemia (replacing), hypovitaminosis D (replacing), hypotension/bradycardia (Suspected infusion reaction). Patient symptoms started on 06/09/20 and today is day 9 of illness. Fluids were ran overnight at 100 ml/hour overnight with 10meq K+Cl-. Nursing notes reviewed from 06/17 to present. Infrequent cough, not productive. O2 2L cannula keeping 97%. Resp unlabored. Lungs few inspiratory crackles Sinus dhaval into 40s. BP 80-90 SBP in am. Bolus given yesterday am, remdesivir stopped. Nausea, COPPOLA, hypotension, diaphoresis. We had concern for hypersensitivity reaction from remdesivir. Discussed we may order echo to eval for cardiomyopathy. Bolus completed 914. BP improved through day, patient up and out of bed into shower, less dizzy, less nausea, COPPOLA improved, no further fever. Last night 2129 patient c/o gas pains. Gas-X given. Still so mewhat low BP and bradycardic but asymptomatic now and feeling better. At o600 this am HR 45, BP 103/56. MAP of 72. 02 93% 2L. Patient rested quietly at night 2L NC keeping ~90-95%. BP >100 SBP and HR in 40s-50s. No changes. NO COPPOLA, no Nausea. Up to bathroom independently, improving. Labs this am showed hgb 10.9 up from 10.7 mildly. WBC improved from 4.02 to 7.37. PLT normalized 148. PT has dropped a little from 11.6 to 11.1. CMP showed potassium at 4.41 and stable. Will continue the 40meq BID x 1 week and recheck K+ in 1 week. Mg++ was okay during stay at 1.71 on 06/16. Creatinine is stable, GFR 154. Liver enzymes normal 31.7 ast and 16 for alt. Vitals on 06/17/20 were low for BP 81-93/44-55 up until at lease 10:00. At 1400 103/47, 124/65 at 2200 and has been >100SBP since that time. We held the dose of remdesivir yesterday. HR 42-59 yesterday except a 68 at 1800. HR does come up with activity as noted yesterday with moving her legs, this does cause her to get SOA. I will provide her with pulse ox and have her monitor x 3-5 days. If HR is not improving we may need to get cardiology intervention to include an echocardiogram. O2 is 93-97% on 2L. She will be d/c with home O2 at 2L continuous. Has been afebrile since 06/15/20 at 1800. She had a 100 degree temp on 06/16/20 at 0154 but no further issues. Total voids on 06/17 #4. Glucose yesterday 326, 236, 237, 320, 260, 191, 102. She was increased to 105 units BID yesterday. I will go up again to 110 units BID at discharge. I plan to d/c today. We discussed care. We will arrange to get pulse ox, home o2, she will finish 5 day course of Levaquin here. I want her to get a CBC and CMP on 06/24 and to see me in clinic on 06/25/20 at 0800. I have stopped remdesivir at dose 3/5. We will give another 5 days of dexamethasone. At her next OV with me on 06/25/20, we may back down on the lantus. I will resume her home dose of Humalog. I will have her hold her home BP medications, resume remainder of meds. Will d/c with K+ at 40 BID x 1 week and then we may change her rx at that time. Patient seen education about d/c about what to watch for, s/sx of worsening. Pulse ox given to patient. Home rollator recommended, home o2 recommended. Labs/imaging ordered. D/W nursing and case management. Day of D/C ROS/EXAM REVIEW OF SYMPTOMS: (Positives bolded) General: weight loss, fever , chills, night sweats (resolved), fatigue, appetite loss, Diaphoresis worse at night (resolved), HEENT: blurry vision, eye pain, eye discharge, dry eyes, decreased vision, sore throat tinnitus, bloody nose, hearin gloss, sinus pain/pressure, ear pain/pressure. Respiratory: shortness of breath, cough, hemoptysis, wheezing, pleurisy, Cardiovascular: chest pain, PND, palpitation, edema, orthopnea, syncope, swelling of extremities Gastro: Nausea (NOW RESOLVED), vomiting (NOW RESOLVED), diarrhea (NOW RESOLVED), hematemesis, abdominal pain, constipation Genito: hematuria, dysuria, glycosuria, hesitancy, frequency, incontinence Reported Vaginal itching at d/c. We will cover with diflucan. [place]: Arthralgia, myalgia, muscle weakness, joint swelling, NSAID use Skin: rash, pruritis, sores, nail changes, skin thickening, change in wart/mole, itching, rash, new lesions, pruritus, nail changes Neuro: Migraine, numbness, ataxia, tremor, vertigo, weakness, memory loss, Irritability, dizziness, +COPPOLA Endocrine: excessive thirst, polyuria, cold intolerance, heat intolerance, g oiter, +DM Insulin dependent Psychiatric: depression, anxiety, anti-depressants, alcohol abuse, drug abuse, insomnia, change in sleep pattern and mood changes Heme/lymph: easy bruising, bleeding gums, blood clots, swollen glands, lymphedema, thrombocytopenia. Allergic/immune: allergic rhinitis, hay fever, asthma, hives Constitutional: Appearance- calm today talking on phone, laying in left lateral decub position. No visible accessory muscle use. no retractions. NO distress again this am. Consistent with stated age. Orientation- Oriented x 3, alert Gait- In hospital bed. Build and Nutrition-Obese female General- Patient is pleasant and cooperative with the interview and exam. Integumentary: General-No rashes, ulcers or lesions. Palpation- Normal skin moisture/turgor. Skin is warm to touch, appropriate. Capillary refill is normal bilateral Upper and lower extremity. NO edema bilateral legs/shins. Head/Neck: Head- normocephalic and atraumatic. Neck- without visible/palpable lumps or pulsations. Palpation- No bony tenderness about head/neck along frontal, occipital, temporal, parietal, mastoid, jawline, zygoma, orbit or any other location. NO temporal artery tenderness. No TMJ tenderness. Neck Supple. Thyroid-No thyromegaly, no nodules Eye: Bilaterally PERRLA, EOMI. No discharge. Upper and lower eyelids are normal. Sclera/conjunctiva normal without discharge. Cornea is normal and clear. Lens is normal. Eyeball appears normal. No ciliary flushing, no conjunctival injection. ENMT: Nares- bilateral quiet airflow, no discharge. Nasal mucosa- No bleeding noted and no ulcerations observed. [place], moist. [place]urb[place] non boggy. Lips- normal color, moist without cracks/lesions Oral Cavity/Palate- hard/soft palate intact without lesions, oral mucosa pink and moist. Tongue normal midline. Oropharynx- no pharyngeal erythema, Uvula midline. No post nasal drip. No exudate. Salivary glands- Non tender to palpation CHEST/LUNG: Inspection- symmetric chest wall no pectus deformity. no increased effort today, NO distress, no use of accessory muscles. Palpation- nontender sternum, ribline. No abnormal pulsations. Auscultation- Breath decreased, diminished effort throughout all lung mcdonald. tracheal sounds, bronchial sounds overlying sternum, Bronchovessicular sounds between scapulae posteriorly, vessicular breath sounds heard throughout periphery coarse. Lungs are mostly clear today scattered rhonchi. Adventitious sounds- No wheezes, rales, scattered rhonchi. CARDIOVASCULAR: Palpation/Percussion- Normal PMI, no palpable thrill Ausc ultation- Bradycardia and sinus rhythm. No murmur noted in sitting, supine positions. Extremities- no digital clubbing, cyanosis, edema, increased warmth. ABDOMEN: Inspection- normal and no visible pulsations. Normal contour. Auscultation- Bowel sounds normal, no abdominal bruits. Palpation/Percussion- soft, non-tender, no rebound tenderness, no rigidity (guarding), no jar tenderness, no masses. Liver/spleen-no appreciable HSM. Peripheral Vascular: Upper extremity Left- Normal temperature with pink nailbeds and no ulcerations. Upper extremity Right- Normal temperature with pink nailbeds and no ulcerations. Lower extremity- Normal temperature with pink nailbeds and no ulcerations. DP pulses 2+ bilaterally. Pedal hair intact. Normal capillary refill. Edema- No edema. Musculoskeletal: Generalized-No generalized swelling or edema of extremities, no digital clubbing or cyanosis, neurovascularly intact all four extremities. Neurological: General- Moves all 4 extremities symmetrically. Symmetrical face and body posture. Strength- 5/5 bilateral UE and LE. Soft touch- intact bilateral UE and LE. Temperature sensation- intact bilateral UE and LE. Neuropsych: Oriented- Person, place, time. (AAOx3), Mood/affect- normal and congruent. Able to articulate well. Speech-Normal speech, normal rate, normal tone, normal use of language, volume and coherence. Thought content- normal wit h ability to perform basic computations and apply abstract thought/reason. Associations- intact, no SI/HI, no hallucinations, delusions, obsessions. Judgment/insight- Appropriate. Memory-Recall intact, remote and recent memory intact. Knowledge- Age appropriate fund of knowledge, concentration and attention span normal. Lymphatic: Head/Neck- normal size and non tender to palpation. Plan: 1. D/C home today 2. Pulse ox to be given to patient 3. Continue oxygen at home 2L continuous. 4. Monitor O2/HR/BP 5. Finish another 48 hours of antibiotics 6. Finish another 5 days of steroids. 7. Monitor for changes/signs/symptoms of worsening - When to go to ED discussed with patient 8. Diabetes: new dose of lantus 110 units BID Resume home dose of humalog. 9. Medications to hold: - Coreg - lasix 10. Labs to be checked CBC/CMP 06/24/20 11. Followup in office 06/25/20 12. Will provide home health 13. Home walker 14. Technically released from isolation as of 06/20/20 based on day 10 of symptom onset 06/09/20. - Call with any changes, with any worsening. While working on discharge patient told nursing about vaginal discharge. I will provide diflucan #1 to take in 1 week. HOld statin 48 hours after dose 1. >30 minutes spent in discharge patient today not including documentation
[2020-06-18] MEDS ORDERED: DIFLUCAN PO SCH (10:00)
[2020-06-18 10:07] VITALS: BP 122/68
[2020-06-18] MEDS: VENTOLIN HFA (PER PUFF-WITH SPACER) IH PRN (10:13)
[2020-06-18] MEDS: LANTUS SUBCUT SCH (11:40)
== END 2020-06-18 14:40 | disposition home or self-care (01) ==
LOC: SCU 21:58 → ED 21:58 → SCU 06-14 00:59
PROVIDERS: ADMIT Family Medicine; ATTEND Family Medicine
DX: R42 Dizziness and giddiness; R09.02 Hypoxemia

== ENCOUNTER 2022-04-28 09:45 | Inpatient (IN) ==
[2022-04-28 13:44] VITALS: BMI 38.4
[2022-04-29 09:28] VITALS: BP 149/59; TEMP 97.8
== END 2022-04-29 15:00 | disposition home or self-care (01) | DRG 308 ==
LOC: ED 09:45 → SCU 13:08 → EDSTATUS 04-29 08:56
PROVIDERS: ADMIT Emergency Medicine Emergency Medical Services; ATTEND Surgery
DX: R00.1 Bradycardia, unspecified; Z79.899 Other long term (current) drug therapy; R53.1 Weakness; R73.9 Hyperglycemia, unspecified; Z79.84 Long term (current) use of oral hypoglycemic drugs; Z51.81 Encounter for therapeutic drug level monitoring; U07.1 COVID-19